=== PATIENT | female | born 1930 | race Caucasian/White ===

== ENCOUNTER 2017-04-01 12:24 | Emergency (ER) | payer MEDICARE ==
[~2017-04-01] VITALS: Ht 147.3 cm; Wt 86.0 kg
[~2017-04-01 12:24] MED LIST: ATOR40TA16 PO; CARV25TA PO; DULC10SU3 RECTAL; FURO20TA PO; KEPP750T PO; LISI2.5T3 PO; MILKSUS PO; MIRA33504 PO; NOVO7030P2 SQ; RANI150T PO; RISP.25 PO; TYLE325T PO; VENTAER INH; cpap
[2017-04-01 12:36] VITALS: BP 124/58; PULSE 72; RESP 19; TEMP 97.5; O2SAT 100
[2017-04-01 12:43] VITALS: BP 124/58; PULSE 71; RESP 17; TEMP 97.5; O2SAT 98
[2017-04-01 12:52] VITALS: BP 124/58; PULSE 70; RESP 17; TEMP 97.5; O2SAT 95
[2017-04-01] MEDS ORDERED: ACETAMINOPHEN 325 MG TAB PO ONE (13:00)
--- NOTE | 2017-04-01 13:06 | PD ---
HPI Chief Complaint: Fall Time Seen by Provider: 12:48 Travel History International Travel<30 days: No Contact w/Intl Traveler<30days: No Traveled to known affect area: No History of Present Illness HPI 86-year-old female that presents to the ED for evaluation of fall. Patient lives an assisted-living facility. Patient apparently had a fall well being transferred from a wheelchair to a bed. This was witnessed by staff. Staff was actually helping her get into the bed and this time was able to get her on the floor safely without major injuries per staff. Patient was brought here for evaluation as she is complaining of pain and has policy of the PRISON. Patient states that she has pain all over but she cannot really tell me were specifically. Per ambulance report she is appear to have pain of her left hip. 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 She has a history of dementia as well. She is for the most part wheelchair bound and lives in an PRISON because of this conditions. She does not appear to be in minimal distress. She tells me that her pain is 10 out of 10. She cannot really tell me she has any chest pain or shortness of breath or any abdominal pain. Whenever I examine her back and legs she does not appear to be in any pain. PFSH Past Medical History Atrial Fibrillation: Yes Cardiovascular Problems: Yes High Cholesterol: Yes Congestive Heart Failure: Yes Cerebrovascular Accident: Yes Diabetes: Yes Patient Takes Glucophage: No GERD: Yes Hypertension: Yes Neurologic: Yes (dementia) Seizures: Yes Tetanus Vaccination: Unknown Past Surgical History Surgical History: Unable to Obtain Social History Alcohol Use: No Tobacco Use: No Substance Use: No Allergies-Medications (Allergen,Severity, Reaction): Coded Allergies: erythromycin base (Unverified Allergy, Intermediate, hives, 04/01/17) metformin (Unverified Allergy, Intermediate, hives, 04/01/17) shellfish derived (Unverified Allergy, Intermediate, unknown, 04/01/17) diflunisal (Unverified Adverse Reaction, Intermediate, spacy, 04/01/17) doxycycline (Unverified Adverse Reaction, Intermediate, nausea/vomiting, ) ketorolac (Unverified Adverse Reaction, Intermediate, hallucinations, 04/01) meperidine (Unverified Adverse Reaction, Intermediate, itching, 04/01/17) pioglitazone (Unverified Adverse Reaction, Intermediate, chest pain, ) rosiglitazone (Unverified Adverse Reaction, Intermediate, edema, 04/01/17) sitagliptin (Unverified Adverse Reaction, Unknown, unknown, 04/01/17) Reported Meds & Prescriptions Reported Meds & Active Scripts Active Keflex (Cephalexin) 500 Mg Cap 500 Mg PO Q12H [cpap] Reported Ibuprofen 800 Mg Tab 800 Mg PO Q6HR PRN Miralax Powder (Polyethylene Glycol 3350 Powder) 17 Gm Powd 17 Gm PO DAILY Mix and dissolve one measuring cap-ful (17 grams) in water or juice. Pepto-Bismol (Bismuth Subsalicylate) 262 Mg Chew 524 Mg CHEW TID PRN Ranitidine (Ranitidine HCl) 150 Mg Tab 150 Mg PO BID Ventolin Hfa 18 GM Inh (Albuterol Sulfate) 90 Mcg/Act Aer 2 Puff INH Q4H PRN Lisinopril 2.5 Mg Tab 2.5 Mg PO DAILY Keppra (Levetiracetam) 750 Mg Tab 750 Mg PO BID Furosemide 20 Mg Tab 20 Mg PO DAILY Dulcolax Supp (Bisacodyl) 10 Mg Supp 10 Mg RECTAL DAILY PRN Carvedilol 25 Mg Tab 25 Mg PO BID Atorvastatin (Atorvastatin Calcium) 40 Mg Tab 40 Mg PO HS Tylenol (Acetaminophen) 325 Mg Tab 650 Mg PO Q4H PRN Milk of Magnesia Liq (Magnesium Hydroxide) 400 Mg/5 Ml Susp 30 Ml PO DAILY PRN Risperdal (Risperidone) 0.25 Mg Tab 0.25 Mg PO HS Novolin 70-30 Inj (Insulin Human Isoph/Insulin Regular) 1,000 Unit/10 Ml Vial 35 Units SQ HS Novolin 70-30 Inj (Insulin Human Isoph/Insulin Regular) 1,000 Unit/10 Ml Vial 45 Units SQ AM Review of Systems Except as stated in HPI: all other systems reviewed are Neg Physical Exam Narrative GENERAL: SKIN: Warm and dry. HEAD: Atraumatic. Normocephalic. EYES: Pupils equal and round 4 mm reactive to light and accommodation. No scleral icterus. No injection or drainage. ENT: No nasal bleeding or discharge. Mucous membranes pink and moist. Tongue is midline. No uvula deviation. NECK: Trachea midline. No JVD. CARDIOVASCULAR: Regular rate and rhythm. No murmurs, S3, S4. RESPIRATORY: No accessory muscle use. Clear to auscultation. Breath sounds equal bilaterally. GASTROINTESTINAL: Abdomen soft, non-tender, nondistended. Hepatic and splenic margins not palpable. MUSCULOSKELETAL: Extremities without clubbing, cyanosis, or edema. No obvious deformities. Full range of motion of the upper and lower extremities with exception of the left upper and lower extremities secondary to chronic deficits. 2+ pulses bilaterally. No lumbar, thoracic, cervical spine tenderness to palpation. NEUROLOGICAL: Awake and alert. No obvious cranial nerve deficits. Motor grossly within normal limits. Five out of 5 muscle strength in the arms and legs. Normal speech. PSYCHIATRIC: Appropriate mood and affect; insight and judgment normal. Data Data Last Documented VS Vital Signs Date Time Temp Pulse Resp B/P (MAP) Pulse Ox O2 Delivery O2 Flow Rate FiO2 04/01/17 12:52 97.5 70 17 124/58 (80) 95 Nasal Cannula 2.00 Orders Orders Complete Blood Count With Diff (04/01/17 12:48) Basic Metabolic Panel (Bmp) (04/01/17 12:48) Urinalysis - C+S If Indicated (04/01/17 12:48) Chest, Single Ap (04/01/17 12:48) Ct Brain W/O Iv Contrast(Rout) (04/01/17 12:48) Ecg Monitoring (04/01/17 12:48) Oximetry (04/01/17 12:48) Hip, Uni(Ap&Lat) W Ap Pelvis (04/01/17 ) Acetaminophen (Tylenol) (04/01/17 13:00) Hip, Uni(Ap&Lat) Wo Ap Pelvis (04/01/17 ) Urine Culture (04/01/17 14:28) Ceftriaxone Inj (Rocephin Inj) (04/01/17 15:15) Labs Laboratory Tests Test 04/01/17 13:00 04/01/17 14:28 White Blood Count 10.7 TH/MM3 Red Blood Count 4.47 MIL/MM3 Hemoglobin 12.7 GM/DL Hematocrit 39.2 % Mean Corpuscular Volume 87.6 FL Mean Corpuscular Hemoglobin 28.4 PG Mean Corpuscular Hemoglobin Concent 32.5 % Red Cell Distribution Width 13.4 % Platelet Count 212 TH/MM3 Mean Platelet Volume 8.5 FL Neutrophils (%) (Auto) 71.1 % Lymphocytes (%) (Auto) 19.1 % Monocytes (%) (Auto) 7.1 % Eosinophils (%) (Auto) 2.3 % Basophils (%) (Auto) 0.4 % Neutrophils # (Auto) 7.6 TH/MM3 Lymphocytes # (Auto) 2.1 TH/MM3 Monocytes # (Auto) 0.8 TH/MM3 Eosinophils # (Auto) 0.2 TH/MM3 Basophils # (Auto) 0.0 TH/MM3 CBC Comment DIFF FINAL Differential Comment Blood Urea Nitrogen 19 MG/DL Creatinine 0.98 MG/DL Random Glucose 252 MG/DL Calcium Level 8.5 MG/DL Sodium Level 144 MEQ/L Potassium Level 4.1 MEQ/L Chloride Level 109 MEQ/L Carbon Dioxide Level 26.8 MEQ/L Anion Gap 8 MEQ/L Estimat Glomerular Filtration Rate 54 ML/MIN Urine Color LIGHT-YELLOW Urine Turbidity HAZY Urine pH 5.5 Urine Specific [place] 1.013 Urine Protein NEG mg/dL Urine Glucose (UA) NEG mg/dL Urine Ketones NEG mg/dL Urine Occult Blood MOD Urine Nitrite NEG Urine Bilirubin NEG Urine Urobilinogen LESS THAN 2.0 MG/DL Urine Leukocyte Esterase LARGE Urine RBC 42 /hpf Urine WBC 81 /hpf Urine WBC Clumps RARE Urine Amorphous Sediment RARE Urine Bacteria RARE /hpf Urine Mucus FEW /lpf Microscopic Urinalysis Comment CULTURE INDICATED MDM Medical Decision Making Medical Screen Exam Complete: Yes Emergency Medical Condition: Yes Medical Record Reviewed: Yes Interpretation(s) CBC & BMP Diagram 04/01/17 13:00 Calcium Level 8.5 UA shows UTI Last Impressions Head CT 04/01/17 1248 Signed Impressions: Service Date/Time: Saturday, April 01, 2017 13:15 - CONCLUSION: 1. No acute intracranial abnormality. 2. Areas of encephalomalacia on the right suggesting prior infarction or trauma. 3. Atrophy and chronic small vessel ischemic change. Sam Hernandez Jr., MD Chest X-Ray 04/01/17 1248 Signed Impressions: Service Date/Time: Saturday, April 01, 2017 13:41 - CONCLUSION: 1. Cardiomegaly. Clear lungs. Sam Hernandez Jr., MD Hip X-Ray 04/01/17 0000 Signed Impressions: Service Date/Time: Saturday, April 01, 2017 13:41 - CONCLUSION: Negative for fracture or dislocation. Follow up in 7-10 days is suggested if symptoms persist. Jacob Sung MD FACR X-ray of the right and left hip were essentially unremarkable. Differential Diagnosis Fall versus pain versus mechanical fall versus head injury versus normal exam Narrative Course 86-year-old female that presents to the ED for further evaluation of fall. Patient had a mechanical fall while being transported from the wheelchair into the bed. Patient did not have a hard fall and she was actually helped by staff into the floor with no major injuries. Patient was sent here for evaluation. Patient is somewhat of a poor historian secondary to her dementia and CVA. She has chronic left-sided numbness and weakness. Patient complaining of pain but she cannot really tell us were specifically. She does not appear to be in acute distress. I did evaluate her and even with movement of the legs and arm she has no pain. No obvious spinal tenderness to palpation. No obvious versus or contusions noted. Labs and imaging were ordered. Labs and imaging were essentially unremarkable. Patient does have a UTI. This is likely contusions. Recommendations for Tylenol Motrin for pain. Close follow-up with PCP. Patient was given a prescription for Keflex for her UTI and given ceftriaxone here for the urinary tract infection. Close follow with PCP. See ED worsening symptoms. Diagnosis Primary Impression: Fall Qualified Codes: W19.XXXA - Unspecified fall, initial encounter Additional Impression: UTI (urinary tract infection) Qualified Codes: N30.00 - Acute cystitis without hematuria Patient Instructions: General Instructions Additional Instructions: Take medication as prescribed. Motrin or Tylenol for pain. Follow with PCP. See ED for any worsening symptoms. Med/Other Pt SpecificInfo: Prescription(s) given Scripts Cephalexin (Keflex) 500 Mg Cap 500 MG PO Q12H for Infection, #10 CAP 0 Refills Prov: Bharathi Arellano MD 04/01/17 Disposition: 03 DISCHARGE TO SNF Condition: Stable Lorne Zhu Apr 01, 2017 13:06
[2017-04-01 13:22] LABS: AUTOMATED NEUTROPHIL # 7.6 TH/MM3 (1.8-7.7); BASOPHIL % 0.4 % (0.0-2.0); EOSINOPHIL # 0.2 TH/MM3 (0-0.4); EOSINOPHIL % 2.3 % (0.0-4.0); HEMATOCRIT 39.2 % (35.0-46.0); HEMO FLAGS DIFF FINAL; LYMPH % 19.1 % (9.0-44.0); LYMPHOCYTE # 2.1 TH/MM3 (1.0-4.8); MEAN CELL VOLUME 87.6 FL (80.0-100.0); MEAN CORPUSCULAR HEMOGLOBIN 28.4 PG (27.0-34.0); MEAN CORPUSCULAR HGB CONC 32.5 % (32.0-36.0); MONO % 7.1 % (0.0-8.0); NEUT % 71.1 % (16.0-70.0); PLATELET COUNT 212 TH/MM3 (150-450); RED BLOOD COUNT 4.47 MIL/MM3 (4.00-5.30); RED CELL DISTRIBUTION WIDTH 13.4 % (11.6-17.2); WHITE BLOOD COUNT 10.7 TH/MM3 (4.0-11.0)
[2017-04-01] MEDS ORDERED: MIRA3350 PO (13:28)
[2017-04-01] MEDS ORDERED: PEPT262C2 CHEW (13:28)
[2017-04-01] MEDS ORDERED: IBUP800T23 PO (13:28)
--- NOTE | 2017-04-01 13:32 | RADRPT ---
EXAM DATE/TIME: 04/01/2017 13:15 [facility] COMPARISON: No previous studies available for comparison. INDICATIONS : Trauma, fall today. RADIATION DOSE: 56.35 CTDIvol (mGy) MEDICAL HISTORY : Stroke. Seizures. Hypertension. SURGICAL HISTORY : None. ENCOUNTER: Initial ACUITY: 1 day PAIN SCALE: 5/10 LOCATION: Bilateral head TECHNIQUE: Multiple contiguous axial images were obtained of the head. Using automated exposure control and adj ustment of the mA and/or kV according to patient size, radiation dose was kept as low as reasonably a chievable to obtain optimal diagnostic quality images. DICOM format image data is available electro nically for review and comparison. FINDINGS: Areas of encephalomalacia seen involving the right parietal lobe near the vertex as well as the right frontal lobe. Periventricular low attenuation change involving both cerebral hemispheres. Atrophy. S mall chronic lacunar infarctions involving the thalami bilaterally. Calvarium is intact. CONCLUSION: 1. No acute intracranial abnormality. 2. Areas of encephalomalacia on the right suggesting prior infarction or trauma. 3. Atrophy and chronic small vessel ischemic change. Sam Hernandez Jr., MD on April 01, 2017 at 13:28 Board Certified Radiologist. This report was verified electronically.
[2017-04-01 13:40] LABS: BICARBONATE 26.8 MEQ/L (21.0-32.0); POTASSIUM 4.1 MEQ/L (3.5-5.1)
--- NOTE | 2017-04-01 14:47 | RADRPT ---
EXAM DATE/TIME: 04/01/2017 13:41 [facility] COMPARISON: No previous studies available for comparison. INDICATIONS : Fall last night. MEDICAL HISTORY : Stroke. Seizures. Hypertension. SURGICAL HISTORY : None. ENCOUNTER: Initial ACUITY: 1 day PAIN SCORE: 0/10 LOCATION: Bilateral chest FINDINGS: A single view of the chest demonstrates the lungs to be symmetrically aerated without evidence of mas s, infiltrate or effusion. Cardiomegaly. No pulmonary vascular engorgement. Osseous structures are in tact. CONCLUSION: 1. Cardiomegaly. Clear lungs. Sam Hernandez Jr., MD on April 01, 2017 at 14:45 Board Certified Radiologist. This report was verified electronically.
[2017-04-01 15:00] LABS: BACTERIA, URINE RARE /hpf; BLOOD, URINE MOD (NEG); COMMENT (UR) CULTURE INDICATED; CULTURE IF INDICATED CULTURE INDICATED; GLUCOSE,URINE NEG (NEG); KETONE, URINE NEG (NEG); MUCUS URINE FEW /lpf (OCC); NITRITE,URINE NEG (NEG); PH, URINE 5.5 (5.0-8.5); URINE COLOR LIGHT-YELLOW (YELLW/STRAW)
[2017-04-01] MEDS ORDERED: CEPH-460 PO (15:06)
--- NOTE | 2017-04-01 15:06 | RADRPT ---
EXAM DATE/TIME: 04/01/2017 13:41 [facility] COMPARISON: No previous studies available for comparison. INDICATIONS : Fall last night. MEDICAL HISTORY : None. Stroke. Seizures. Hypertension. SURGICAL HISTORY : None. ENCOUNTER: Initial ACUITY: 1 day PAIN SCORE: 0/10 LOCATION: Right Hip FINDINGS: A two view examination of the right hip was performed. The primary and secondary trabecular pattern of the femoral neck is intact. The hip joint is of normal width without significant sclerosis or bon y hypertrophy. The acetabulum is grossly intact. CONCLUSION: Negative for fracture or dislocation. Follow up in 7-10 days is suggested if symptoms persist. Jacob Sung MD FACR on April 01, 2017 at 14:57 Board Certified Radiologist. This report was verified electronically.
--- NOTE | 2017-04-01 15:07 | RADRPT ---
EXAM DATE/TIME: 04/01/2017 13:41 [facility] COMPARISON: No previous studies available for comparison. INDICATIONS : Fall last night. MEDICAL HISTORY : Stroke. Seizures. Hypertension. SURGICAL HISTORY : None. ENCOUNTER: Initial ACUITY: 1 day PAIN SCORE: 0/10 LOCATION: Left Hip. FINDINGS: Examination of the left hip was performed with AP Pelvis. The primary and secondary trabecular patte rn of the femoral neck is intact. The hip joint is of normal width without significant sclerosis or bony hypertrophy. The acetabulum is grossly intact. CONCLUSION: Negative for fracture or dislocation. Follow up in 7-10 days is suggested if symptoms persist. Jacob Sung MD FACR on April 01, 2017 at 15:05 Board Certified Radiologist. This report was verified electronically.
[2017-04-01] MEDS ORDERED: cefTRIAXone INJ 1,000 MG in SODIUM CHLORIDE 0.9% INJ 100 ML IV ONE (15:15)
[2017-04-01 18:10] VITALS: BP 129/60
[2017-05-16] MEDS ORDERED: NOVONP2 SQ (08:56)
[2017-05-16] MEDS ORDERED: LANTUS2P SQ (08:56)
[2017-05-20] MEDS ORDERED: NOVOLOGP2 SQ (15:45)
== END 2017-04-01 18:28 ==
LOC: NEPC 12:24
DX: N30.00 Acute cystitis without hematuria (principal); B96.4 Proteus (mirabilis) (morganii) as the cause of diseases classified elsewhere; E11.9 Type 2 diabetes mellitus without complications; I10 Essential (primary) hypertension; F03.90 Unspecified dementia, unspecified severity, without behavioral disturbance, psychotic disturbance, mood disturbance, and anxiety; E78.00 Pure hypercholesterolemia, unspecified; W19.XXXA Unspecified fall, initial encounter; Z99.3 Dependence on wheelchair; Z79.4 Long term (current) use of insulin; Z86.79 Personal history of other diseases of the circulatory system; Z87.19 Personal history of other diseases of the digestive system; Z86.69 Personal history of other diseases of the nervous system and sense organs
CPT/HCPCS: 70450; 71010; 73502; 80048; 81001; 85025; 87077; 87086; 87186; 96365; 99285; J0696

== ENCOUNTER 2017-08-13 15:06 | Inpatient (IN) | payer MEDICARE ==
[~2017-08-13] VITALS: Ht 152.4 cm; Wt 76.9 kg
[2017-08-13] VITALS (8 sets, daily range): BP systolic 91–124; BP diastolic 49–68; PULSE 72–82; RESP 17–23; TEMP 97.7; O2SAT 94–100
[~2017-08-13 15:06] MED LIST changes: +IBUP1TAB7 PO; +LANTUS2P SQ; +MIRA3350 PO; -MIRA33504 PO; -NOVO7030P2 SQ; +NOVOLOGP2 SQ; +PEPT262C2 CHEW; -RISP.25 PO
[2017-08-13] MEDS ORDERED: ACETAMINOPHEN 650 MG SUPP RECTAL ONE (15:15)
[2017-08-13] MEDS ORDERED: SODIUM CHLORID 0.9% 500 ML INJ 500 ML IV ONE ×2 (15:30→16:15)
[2017-08-13] MEDS ORDERED: VANCOMYCIN INJ 1,000 MG in SODIUM CHLOR 0.9% 250 ML INJ 250 ML IV STA (15:30)
[2017-08-13] MEDS ORDERED: PIPERACIL-TAZO 4.5 GM PREMIX 100 ML IV STA (15:30)
--- NOTE | 2017-08-13 15:37 | PD ---
HPI Chief Complaint: Altered Mental Status Time Seen by Provider: 15:13 Travel History International Travel<30 days: No Contact w/Intl Traveler<30days: No Traveled to known affect area: No History of Present Illness HPI 86-year-old female presents by ambulance for initial nonemergent call for abnormal sodium in the 160s. When the ambulance team arrived on scene she had a fever of 101 and a GCS of 5. Here patient withdraws to pain, mumbles with pain, opens eyes with voice. History is limited from patient as she cannot have any clear speech with me at this time. Records state she has history of dementia. History is significantly limited. PFS Past Medical History Narrative Medical By records Atrial Fibrillation: Yes Cardiovascular Problems: Yes High Cholesterol: Yes Congestive Heart Failure: Yes Cerebrovascular Accident: Yes Diabetes: Yes Patient Takes Glucophage: No (UNKNOWN) GERD: Yes Hypertension: Yes Neurologic: Yes (dementia) Seizures: Yes Past Surgical History Surgical History: Unable to Obtain Social History Narrative Social History By records Alcohol Use: No Tobacco Use: No Substance Use: No Allergies-Medications (Allergen,Severity, Reaction): Coded Allergies: erythromycin base (Unverified Allergy, Intermediate, hives, 04/01/17) metformin (Unverified Allergy, Intermediate, hives, 04/01/17) shellfish derived (Unverified Allergy, Intermediate, unknown, 04/01/17) diflunisal (Unverified Adverse Reaction, Intermediate, spacy, 04/01/17) doxycycline (Unverified Adverse Reaction, Intermediate, nausea/vomiting, ) ketorolac (Unverified Adverse Reaction, Intermediate, hallucinations, 04/01) meperidine (Unverified Adverse Reaction, Intermediate, itching, 04/01/17) pioglitazone (Unverified Adverse Reaction, Intermediate, chest pain, ) rosiglitazone (Unverified Adverse Reaction, Intermediate, edema, 04/01/17) sitagliptin (Unverified Adverse Reaction, Unknown, unknown, 04/01/17) Reported Meds & Prescriptions Reported Meds & Active Scripts Active Lantus Inj (Insulin Glargine) 1,000 Unit/10 Ml Vial 30 Units SQ HS Novolog Inj (Insulin Aspart) 1,000 Unit/10 Ml Vial 0 SQ DIRECTED BGM 70-139 0 units, 140-180 2 untis, 181-240 3 units, 241-300 4mg, 301-350 6 units, 351-400 8 units, >400 10 units [cpap] Reported Ibuprofen 800 Mg Tab 800 Mg PO Q6HR PRN Miralax Powder (Polyethylene Glycol 3350 Powder) 17 Gm Powd 17 Gm PO DAILY Mix and dissolve one measuring cap-ful (17 grams) in water or juice. Pepto-Bismol (Bismuth Subsalicylate) 262 Mg Chew 524 Mg CHEW TID PRN Ranitidine (Ranitidine HCl) 150 Mg Tab 150 Mg PO BID Ventolin Hfa 18 GM Inh (Albuterol Sulfate) 90 Mcg/Act Aer 2 Puff INH Q4H PRN Lisinopril 2.5 Mg Tab 2.5 Mg PO DAILY Keppra (Levetiracetam) 750 Mg Tab 750 Mg PO BID Furosemide 20 Mg Tab 20 Mg PO DAILY Dulcolax Supp (Bisacodyl) 10 Mg Supp 10 Mg RECTAL DAILY PRN Carvedilol 25 Mg Tab 25 Mg PO BID Atorvastatin (Atorvastatin Calcium) 40 Mg Tab 40 Mg PO HS Tylenol (Acetaminophen) 325 Mg Tab 650 Mg PO Q4H PRN Milk of Magnesia Liq (Magnesium Hydroxide) 400 Mg/5 Ml Susp 30 Ml PO DAILY PRN Review of Systems ROS Limitations: Altered Mental Status Physical Exam Exam Limitations: Altered Mental Status Narrative GENERAL: Well-nourished, well-developed patient. SKIN: Warm and dry. HEAD: Normocephalic and atraumatic. EYES: No injection or drainage. ENT: No nasal drainage noted. NECK: Supple, trachea midline. CARDIOVASCULAR: Regular rate and rhythm RESPIRATORY: no increased effort. No accessory muscle use. GASTROINTESTINAL: Abdomen soft, non-tender, nondistended. NEUROLOGICAL: withdraws to pain, mumbles with pain, opens eyes to voice Data Data Last Documented VS Vital Signs Date Time Temp Pulse Resp B/P (MAP) Pulse Ox O2 Delivery O2 Flow Rate FiO2 08/13/17 15:37 100 3.00 08/13/17 15:37 Nasal Cannula 08/13/17 15:05 21 Orders Orders Sepsis Workup Initiated (08/13/17 ) Electrocardiogram (08/13/17 15:13) Complete Blood Count With Diff (08/13/17 15:13) Comprehensive Metabolic Panel (08/13/17 15:13) Prothrombin Time / Inr (Pt) (08/13/17 15:13) Act Partial Throm Time (Ptt) (08/13/17 15:13) Lactic Acid Sepsis Protocol (08/13/17 15:13) Magnesium (Mg) (08/13/17 15:13) Phosphorus (Po4) (08/13/17 15:13) Ckmb (Isoenzyme) Profile (08/13/17 15:13) Troponin I (08/13/17 15:13) Urinalysis - C+S If Indicated (08/13/17 15:13) Influenzae A/B Antigen (08/13/17 15:13) Blood Culture (08/13/17 15:13) Chest, Single Ap (08/13/17 15:13) Blood Glucose (08/13/17 15:13) Ecg Monitoring (08/13/17 15:13) Iv Access Insert/Monitor (08/13/17 15:13) Oximetry (08/13/17 15:13) Oxygen Administration (08/13/17 15:13) Acetaminophen Supp (Tylenol Supp) (08/13/17 15:15) Sodium Chlorid 0.9% 500 Ml Inj (Ns 500 M (08/13/17 15:30) Ct Brain W/O Iv Contrast(Rout) (08/13/17 ) Vancomycin Inj (Vancomycin Inj) (08/13/17 15:30) Piperacil-Tazo 4.5 Gm Premix (Zosyn 4.5 (08/13/17 15:30) Sodium Chlorid 0.9% 500 Ml Inj (Ns 500 M (08/13/17 16:15) Urinary Catheter Insert/Apply (08/13/17 16:23) CKMB (08/13/17 15:00) CKMB% (08/13/17 15:00) Admit Order (Ed Use Only) (08/13/17 16:54) Labs Laboratory Tests Test 08/13/17 15:00 08/13/17 15:22 08/13/17 16:16 White Blood Count 16.8 TH/MM3 Red Blood Count 4.36 MIL/MM3 Hemoglobin 12.4 GM/DL Hematocrit 39.3 % Mean Corpuscular Volume 90.3 FL Mean Corpuscular Hemoglobin 28.5 PG Mean Corpuscular Hemoglobin Concent 31.5 % Red Cell Distribution Width 14.2 % Platelet Count 261 TH/MM3 Mean Platelet Volume 9.1 FL Neutrophils (%) (Auto) 82.0 % Lymphocytes (%) (Auto) 10.1 % Monocytes (%) (Auto) 7.2 % Eosinophils (%) (Auto) 0.1 % Basophils (%) (Auto) 0.6 % Neutrophils # (Auto) 13.8 TH/MM3 Lymphocytes # (Auto) 1.7 TH/MM3 Monocytes # (Auto) 1.2 TH/MM3 Eosinophils # (Auto) 0.0 TH/MM3 Basophils # (Auto) 0.1 TH/MM3 CBC Comment DIFF FINAL Differential Comment Prothrombin Time 11.4 SEC Prothromb Time International Ratio 1.1 RATIO Activated Partial Thromboplast Time 24.4 SEC Blood Urea Nitrogen 44 MG/DL Creatinine 1.47 MG/DL Random Glucose 354 MG/DL Total Protein 7.0 GM/DL Albumin 2.3 GM/DL Calcium Level 8.1 MG/DL Phosphorus Level 2.9 MG/DL Magnesium Level 2.4 MG/DL Alkaline Phosphatase 99 U/L Aspartate Amino Transf (AST/SGOT) 36 U/L Alanine Aminotransferase (ALT/SGPT) 20 U/L Total Bilirubin 0.4 MG/DL Sodium Level 159 MEQ/L Potassium Level 5.1 MEQ/L Chloride Level 125 MEQ/L Carbon Dioxide Level 26.1 MEQ/L Anion Gap 8 MEQ/L Estimat Glomerular Filtration Rate 34 ML/MIN Total Creatine Kinase 131 U/L Creatine Kinase MB LESS THAN 0.5 NG/ML Troponin I LESS THAN 0.02 NG/ML Lactic Acid Level 2.5 mmol/L Urine Color YELLOW Urine Turbidity HAZY Urine pH 5.0 Urine Specific [place] 1.013 Urine Protein TRACE mg/dL Urine Glucose (UA) 150 mg/dL Urine Ketones NEG mg/dL Urine Occult Blood SMALL Urine Nitrite POS Urine Bilirubin NEG Urine Urobilinogen LESS THAN 2.0 MG/DL Urine Leukocyte Esterase LARGE Urine RBC 9 /hpf Urine WBC /hpf Urine WBC Clumps MANY Urine Squamous Epithelial Cells 1 /hpf Urine Bacteria MOD /hpf Urine Hyaline Casts 17 /lpf Urine Mucus FEW /lpf Microscopic Urinalysis Comment CATH-CULTURE IND MDM Medical Decision Making Medical Screen Exam Complete: Yes Emergency Medical Condition: Yes Medical Record Reviewed: Yes (pmh confirmed) Interpretation(s) CBC & BMP Diagram 08/13/17 15:00 Total Protein 7.0, Albumin 2.3 L, Calcium Level 8.1 L, Phosphorus Level 2.9, Magnesium Level 2.4, Alkaline Phosphatase 99, Aspartate Amino Transf (AST/SGOT) 36, Alanine Aminotransferase (ALT/SGPT) 20, Total Bilirubin 0.4 Last 24 hours Impressions Chest X-Ray 08/13/17 1513 Signed Impressions: Service Date/Time: Sunday, August 13, 2017 15:24 - CONCLUSION: No acute disease. There is no evidence of pneumonia. Elio Bauman MD Head CT 08/13/17 0000 Signed Impressions: Service Date/Time: Sunday, August 13, 2017 15:36 - CONCLUSION: 1. No acute hemorrhage or mass effect. 2. Encephalomalacia involving the right frontal and parietal lobes. 3. Moderate atrophy and chronic small vessel ischemic changes. Elio Bauman MD Differential Diagnosis UTI, sepsis, intercranial, renal failure, electrolyte abnormality Narrative Course Will check blood work, urinalysis, chest x-ray, CT brain and discuss with power of staff attorney patient's clinical condition. Will dose with IV fluids, Tylenol and broad-spectrum antibiotics Patient's power of staff attorney Elena baer ([phone]) states patient is a full code. He states he wants to review her paperwork but at this time if she' s not having issues with her breathing he agrees to no intubation and aggressive treatment of fever and broad-spectrum antibiotics. Follow along with her care and be available over the phone as needed. son called and states for now only intubate if respiratory failure and will look over paperwork 1700 elena baer called back and states found records she had that state that she does not want to be intubated but otherwise do other parts with cpr, meds, and shock if codes, son updated again and agrees to admit Critical Care Narrative Aggregate critical care time was 90 minutes. Time to perform other separately billable procedures was not included in the critical care time. My time did not include minutes spent treating any other patients simultaneously or on activities that did not directly contribute to the patient's treatment. The services I provided to this patient were to treat and/or prevent clinically significant deterioration that could result in: shock, respiratory failure, I provided critical care services requiring my management, as noted below: Chart data review, documentation time, medication orders and management, vital sign assessments/reviewing monitor data, ordering and reviewing lab tests, ordering and interpreting/reviewing x-rays and diagnostic studies, care of the patient and discussion of the patient with the admitting physicians. Sepsis Criteria SIRS Criteria (2 or more): Temp > 100.9 or < 96.8 (ems 101.1q), WBC > 77541, < 4000 or > 10% bands Sepsis Criteria (SIRS+source): Infect source susp/known Severe Sepsis (+one): Lactate >2 Criteria Outcome: Meets severe sepsis criteria Physician Communication Physician Communication dr coreas agrees to admit Diagnosis Primary Impression: Sepsis Qualified Codes: A41.9 - Sepsis, unspecified organism Additional Impressions: Hypernatremia Renal failure Qualified Codes: N17.9 - Acute kidney failure, unspecified Altered mental status Qualified Codes: R41.82 - Altered mental status, unspecified Admitting Information Admitting Physician Requests: Admit Ashli Pedraza MD Aug 13, 2017 15:37
--- NOTE | 2017-08-13 15:38 | RADRPT ---
EXAM DATE/TIME: 08/13/2017 15:24 [facility] COMPARISON: CHEST SINGLE AP, April 01, 2017, 13:41. INDICATIONS : Fever. MEDICAL HISTORY : Dementia and diabetes. Stroke. Seizures. Hypertension SURGICAL HISTORY : None. ENCOUNTER: Initial ACUITY: 1 day PAIN SCORE: Non-responsive. LOCATION: Bilateral chest FINDINGS: A single view of the chest demonstrates the lungs to be symmetrically aerated without evidence of mas s, infiltrate or effusion. The cardiomediastinal contours are unremarkable. Osseous structures are intact. CONCLUSION: No acute disease. There is no evidence of pneumonia. Elio Bauman MD on August 13, 2017 at 15:34 Board Certified Radiologist. This report was verified electronically.
[2017-08-13 15:43] LABS: AUTOMATED NEUTROPHIL # 13.8 TH/MM3 (1.8-7.7); BASOPHIL # 0.1 TH/MM3 (0-0.2); BASOPHIL % 0.6 % (0.0-2.0); EOSINOPHIL % 0.1 % (0.0-4.0); HEMATOCRIT 39.3 % (35.0-46.0); HEMOGLOBIN 12.4 GM/DL (11.6-15.3); LYMPH % 10.1 % (9.0-44.0); LYMPHOCYTE # 1.7 TH/MM3 (1.0-4.8); MEAN CELL VOLUME 90.3 FL (80.0-100.0); MEAN CORPUSCULAR HEMOGLOBIN 28.5 PG (27.0-34.0); MEAN CORPUSCULAR HGB CONC 31.5 % (32.0-36.0); MEAN PLATELET VOLUME 9.1 FL (7.0-11.0); MONO % 7.2 % (0.0-8.0); MONOCYTE # 1.2 TH/MM3 (0-0.9); PLATELET COUNT 261 TH/MM3 (150-450); RED BLOOD COUNT 4.36 MIL/MM3 (4.00-5.30); RED CELL DISTRIBUTION WIDTH 14.2 % (11.6-17.2); WHITE BLOOD COUNT 16.8 TH/MM3 (4.0-11.0)
[2017-08-13 15:58] LABS: INTERNATIONAL NORMALIZED RATIO 1.1 RATIO; PROTHROMBIN TIME - PATIENT 11.4 SEC (9.8-11.6)
--- NOTE | 2017-08-13 16:00 | RADRPT ---
EXAM DATE/TIME: 08/13/2017 15:36 [facility] COMPARISON: CT BRAIN W/O CONTRAST, April 01, 2017, 13:15. INDICATIONS : Altered mental status, declining over past week RADIATION DOSE: 56.35 CTDIvol (mGy) MEDICAL HISTORY : Dementia. Hypertension. Cerebrovascular disease. SURGICAL HISTORY : None. ENCOUNTER: Initial ACUITY: 1 week PAIN SCALE: Non-responsive LOCATION: cranial TECHNIQUE: Multiple contiguous axial images were obtained of the head. Using automated exposure control and adj ustment of the mA and/or kV according to patient size, radiation dose was kept as low as reasonably a chievable to obtain optimal diagnostic quality images. DICOM format image data is available electro nically for review and comparison. FINDINGS: CEREBRUM: The ventricles are normal for age diffuse moderate atrophic change. There is sulcal and ventricular p rominence. Encephalomalacia is noted involving the right frontal and occipital white matter. The No e vidence of midline shift, mass lesion, hemorrhage or acute infarction. No extra-axial fluid collecti ons are seen. POSTERIOR FOSSA: The cerebellum and brainstem are intact. The 4th ventricle is midline. The cerebellopontine angle i s unremarkable. EXTRACRANIAL: The visualized portion of the orbits is intact. SKULL: The calvaria is intact. No evidence of skull fracture. CONCLUSION: 1. No acute hemorrhage or mass effect. 2. Encephalomalacia involving the right frontal and parietal lobes. 3. Moderate atrophy and chronic small vessel ischemic changes. Elio Bauman MD on August 13, 2017 at 15:49 Board Certified Radiologist. This report was verified electronically.
[2017-08-13 16:02] LABS: LACTIC ACID SEPSIS PROTOCOL 2.5 mmol/L (0.4-2.0)
[2017-08-13 16:26] LABS: ALBUMIN 2.3 GM/DL (3.4-5.0); ALKALINE PHOSPHATASE 99 U/L (45-117); ALT (GPT) 20 U/L (10-53); AST (GOT) 36 U/L (15-37); BICARBONATE 26.1 MEQ/L (21.0-32.0); BLOOD UREA NITROGEN 44 MG/DL (7-18); CALCIUM 8.1 MG/DL (8.5-10.1); CHLORIDE 125 MEQ/L (98-107); CREATININE 1.47 MG/DL (0.50-1.00); GLOMERULAR FILTRATION RATE 34 ML/MIN (>89); GLUCOSE,RANDOM 354 MG/DL (74-106); MAGNESIUM 2.4 MG/DL (1.5-2.5); PHOSPHORUS 2.9 MG/DL (2.5-4.9); TOTAL BILIRUBIN ADULT 0.4 MG/DL (0.2-1.0); TROPONIN I LESS THAN 0.02 NG/ML (0.02-0.05)
[2017-08-13 16:31] LABS: SODIUM (NA) 159 MEQ/L (136-145)
[2017-08-13] MEDS ORDERED: SODIUM CHLORIDE 0.9% FLUSH 10 ML FLUSH IV FLUSH PRN (17:00)
[2017-08-13] MEDS ORDERED: ACETAMINOPHEN 325 MG TAB PO PRN (17:00)
[2017-08-13] MEDS ORDERED: DEXTROSE 5% IN WATE 1000ML INJ 1,000 ML IV SCH (17:00)
[2017-08-13] MEDS ORDERED: LACTULOSE SYRUP 20 GM/30 ML CUP PO PRN (17:00)
[2017-08-13] MEDS ORDERED: SENNOSIDES 8.6 MG TAB PO PRN (17:00)
[2017-08-13] MEDS ORDERED: NALOXONE HCL 0.4 MG/ML AMP IV PUSH PRN (17:00)
[2017-08-13] MEDS ORDERED: BISACODYL 10 MG SUPP RECTAL PRN (17:00)
[2017-08-13] MEDS ORDERED: ONDANSETRON HCL 4 MG/2 ML VIAL IVP PRN (17:00)
[2017-08-13] MEDS ORDERED: MAGNESIUM HYDROXIDE SUSP 30 ML CUP PO PRN (17:00)
[2017-08-13 17:12] LABS: BACTERIA, URINE MOD /hpf; BILIRUBIN, URINE NEG (NEG); BLOOD, URINE SMALL (NEG); GLUCOSE,URINE 150 mg/dL (NEG); HYALINE CAST, URINE 17 /lpf (RARE); KETONE, URINE NEG (NEG); MUCUS URINE FEW /lpf (OCC); NITRITE,URINE POS (NEG); SQUAMOUS EPITHELIAL CELL URINE 1 /hpf (0-5); URINE COLOR YELLOW (YELLW/STRAW); URINE LEUKOCYTE ESTERASE LARGE (NEG); WHITE BLOOD CELL CLUMPS MANY
[2017-08-13] MEDS ORDERED: GLUCAGON 1 MG/ML VIAL OTHER PRN (17:30)
[2017-08-13] MEDS ORDERED: DEXTROSE 50% IN WATER 50 ML VIAL(D50) IV PUSH PRN (17:30)
[2017-08-13] MEDS ORDERED: INSULIN ASPART SUPPLEMENTAL SCALE SQ SCH (21:00)
[2017-08-13] MEDS ORDERED: INSULIN DETEMIR 100 UNITS/ML VIAL SQ SCH (21:00)
[2017-08-13] MEDS: HEPARIN SODIUM - SQ 10,000 UNITS/ML VIAL SQ SCH (21:16)
[2017-08-13] MEDS: SODIUM CHLORIDE 0.9% FLUSH 10 ML FLUSH IV FLUSH SCH (21:16)
[2017-08-13] MEDS ORDERED: CHLORHEXIDINE GLUCONATE 2 % 1 PACK (2 CLOTHS)(extra cloths) TOPICAL PRN (21:30)
--- NOTE | 2017-08-13 22:05 | HHI.HP ---
[facility] Admission Diagnosis sepsis, hypernatremia Diagnoses: Chief Complaint: Altered mental status. Travel History International Travel<30 Days: No Contact w/Intl Traveler <30 Da: No Traveled to Known Affected Are: No History of Present Illness Ms. Sánchez is an 86 year old female with a history of dementia, atrial fibrillation who was brought to the ED from her place of residence on 08/13 due to sodium in the 160s. When patient arrived in the ED by ambulance, her GCS was 5 and had a fever of 101. Per ED physician, patient's GCS improved to 12 later. At the time of this interview, patient is not able to participate in the interview. She wakes up on sternal rub and then goes back to sleep. She follows commands minimally. On admission, Na 159, K 5/1, BUN 44, Creatinine 1.47 , Glucose 354, Lactic Acid 2.5. Troponin 0.02. CBC indicated WBC 16.8, Hgb 12.4 , Plt 261. Review of Systems ROS Limitations: Altered Mental Status, Unresponsive, Uncooperative Past Family Social History Past Medical History Atrial fibrillation CHF Diabetes Dementia Seizure Past Surgical History Unable to obtain Reported Medications Lantus Inj (Insulin Glargine) 1,000 Unit/10 Ml Vial 30 Units SQ HS Novolog Inj (Insulin Aspart) 1,000 Unit/10 Ml Vial 0 SQ DIRECTED BGM 70-139 0 units, 140-180 2 untis, 181-240 3 units, 241-300 4mg, 301-350 6 units, 351-400 8 units, >400 10 units [cpap] Reported Ibuprofen 800 Mg Tab 800 Mg PO Q6HR PRN Miralax Powder (Polyethylene Glycol 3350 Powder) 17 Gm Powd 17 Gm PO DAILY Mix and dissolve one measuring cap-ful (17 grams) in water or juice. Pepto-Bismol (Bismuth Subsalicylate) 262 Mg Chew 524 Mg CHEW TID PRN Ranitidine (Ranitidine HCl) 150 Mg Tab 150 Mg PO BID Ventolin Hfa 18 GM Inh (Albuterol Sulfate) 90 Mcg/Act Aer 2 Puff INH Q4H PRN Lisinopril 2.5 Mg Tab 2.5 Mg PO DAILY Keppra (Levetiracetam) 750 Mg Tab 750 Mg PO BID Furosemide 20 Mg Tab 20 Mg PO DAILY Dulcolax Supp (Bisacodyl) 10 Mg Supp 10 Mg RECTAL DAILY PRN Carvedilol 25 Mg Tab 25 Mg PO BID Atorvastatin (Atorvastatin Calcium) 40 Mg Tab 40 Mg PO HS Tylenol (Acetaminophen) 325 Mg Tab 650 Mg PO Q4H PRN Milk of Radha Liq (Magnesium Hydroxide) 400 Mg/5 Ml Susp 30 Ml PO DAILY PRN Allergies: Coded Allergies: erythromycin base (Unverified Allergy, Intermediate, hives, 04/01/17) metformin (Unverified Allergy, Intermediate, hives, 04/01/17) shellfish derived (Unverified Allergy, Intermediate, unknown, 04/01/17) diflunisal (Unverified Adverse Reaction, Intermediate, spacy, 04/01/17) doxycycline (Unverified Adverse Reaction, Intermediate, nausea/vomiting, ) ketorolac (Unverified Adverse Reaction, Intermediate, hallucinations, 04/01) meperidine (Unverified Adverse Reaction, Intermediate, itching, 04/01/17) pioglitazone (Unverified Adverse Reaction, Intermediate, chest pain, ) rosiglitazone (Unverified Adverse Reaction, Intermediate, edema, 04/01/17) sitagliptin (Unverified Adverse Reaction, Unknown, unknown, 04/01/17) Family History Unable to obtain Social History Unable to obtain Physical Exam Vital Signs Vital Signs Date Time Temp Pulse Resp B/P (MAP) Pulse Ox O2 Delivery O2 Flow Rate FiO2 08/13/17 20:49 08/13/17 20:07 76 18 97/51 (66) 97 Nasal Cannula 3.00 08/13/17 18:21 72 17 109/68 (82) 95 Nasal Cannula 08/13/17 16:32 82 23 124/65 (84) 95 Nasal Cannula 2.00 08/13/17 15:37 100 3.00 08/13/17 15:37 100 Nasal Cannula 3.00 08/13/17 15:24 100 Nasal Cannula 3.00 08/13/17 15:19 93 Room Air 08/13/17 15:05 94 21 Physical Exam GENERAL: This is a well-nourished, well-developed patient, in no apparent distress. Wakes up on sternal rub. SKIN: No rashes, ecchymoses or lesions. Warm and dry. HEAD: Atraumatic. Normocephalic. No temporal or scalp tenderness. EYES: Pupils equal round and reactive. No injection or drainage. ENT: Nose without bleeding, purulent drainage or septal hematoma. Airway patent. NECK: Trachea midline. No lymphadenopathy. Supple, nontender, no meningeal signs. CARDIOVASCULAR: Regular rate and rhythm without murmurs, gallops, or rubs. No JVD. RESPIRATORY: Clear to auscultation. Breath sounds equal bilaterally. No wheezes , rales, or rhonchi. GASTROINTESTINAL: Abdomen soft, non-tender, nondistended. No guarding. MUSCULOSKELETAL: Extremities without clubbing, cyanosis, or edema. NEUROLOGICAL: Wakes up on sternal rub. Follows commands minimally. Laboratory Laboratory Tests Test 08/13/17 15:00 08/13/17 15:22 08/13/17 16:16 08/13/17 19:19 White Blood Count 16.8 Red Blood Count 4.36 Hemoglobin 12.4 Hematocrit 39.3 Mean Corpuscular Volume 90.3 Mean Corpuscular Hemoglobin 28.5 Mean Corpuscular Hemoglobin Concent 31.5 Red Cell Distribution Width 14.2 Platelet Count 261 Mean Platelet Volume 9.1 Neutrophils (%) (Auto) 82.0 Lymphocytes (%) (Auto) 10.1 Monocytes (%) (Auto) 7.2 Eosinophils (%) (Auto) 0.1 Basophils (%) (Auto) 0.6 Neutrophils # (Auto) 13.8 Lymphocytes # (Auto) 1.7 Monocytes # (Auto) 1.2 Eosinophils # (Auto) 0.0 Basophils # (Auto) 0.1 CBC Comment DIFF FINAL Differential Comment Prothrombin Time 11.4 Prothromb Time International Ratio 1.1 Activated Partial Thromboplast Time 24.4 Blood Urea Nitrogen 44 Creatinine 1.47 Random Glucose 354 Total Protein 7.0 Albumin 2.3 Calcium Level 8.1 Phosphorus Level 2.9 Magnesium Level 2.4 Alkaline Phosphatase 99 Aspartate Amino Transf (AST/SGOT) 36 Alanine Aminotransferase (ALT/SGPT) 20 Total Bilirubin 0.4 Sodium Level 159 Potassium Level 5.1 Chloride Level 125 Carbon Dioxide Level 26.1 Anion Gap 8 Estimat Glomerular Filtration Rate 34 Total Creatine Kinase 131 Creatine Kinase MB LESS THAN 0.5 Troponin I LESS THAN 0.02 Lactic Acid Level 2.5 0.4 Urine Color YELLOW Urine Turbidity HAZY Urine pH 5.0 Urine Specific [place] 1.013 Urine Protein TRACE Urine Glucose (UA) 150 Urine Ketones NEG Urine Occult Blood SMALL Urine Nitrite POS Urine Bilirubin NEG Urine Urobilinogen LESS THAN 2.0 Urine Leukocyte Esterase LARGE Urine RBC 9 Urine WBC Urine WBC Clumps MANY Urine Squamous Epithelial Cells 1 Urine Bacteria MOD Urine Hyaline Casts 17 Urine Mucus FEW Microscopic Urinalysis Comment CATH-CULTURE IND Test 08/13/17 20:50 Date/Time Source Procedure Growth Status 08/13/17 15:20 Blood Peripheral Aerobic Blood Culture Pending Received 08/13/17 15:20 Blood Peripheral Anaerobic Blood Culture Pending Received 08/13/17 16:16 Nasal Aspirate Influenza Types A,B Antigen (KARRIE) - Final NEGATIVE FOR FLU A AND B ANTIGEN.... Complete 08/13/17 16:16 Urine Catheterized Urine Urine Culture Pending Received Result Diagram: 08/13/17 1500 08/13/17 1500 Imaging Last Impressions Chest X-Ray 08/13/17 1513 Signed Impressions: Service Date/Time: Sunday, August 13, 2017 15:24 - CONCLUSION: No acute disease. There is no evidence of pneumonia. Elio Bauman MD Head CT 08/13/17 0000 Signed Impressions: Service Date/Time: Sunday, August 13, 2017 15:36 - CONCLUSION: 1. No acute hemorrhage or mass effect. 2. Encephalomalacia involving the right frontal and parietal lobes. 3. Moderate atrophy and chronic small vessel ischemic changes. Elio Bauman MD Caprini VTE Risk Assessment Caprini VTE Risk Assessment: Mod/High Risk (score >= 2) Caprini Risk Assessment Model Point Value = 1 Point Value = 2 Point Value = 3 Point Value = 5 Age 41-60 Minor surgery BMI > 25 kg/m2 Swollen legs Varicose veins or History of unexplained or recurrent spontaneous Oral contraceptives or hormone replacement Sepsis (< 1 month) Serious lung disease, including pneumonia (< 1 month) Abnormal pulmonary function Acute myocardial infarction Congestive heart failure (< 1 month) History of inflammatory bowel disease Medical patient at bed rest Age 61-74 Arthroscopic surgery Major open surgery (> 45 min) Laparoscopic surgery (> 45 min) Malignancy Confined to bed (> 72 hours) Immobilizing plaster cast Central venous access Age >= 75 History of VTE Family history of VTE Factor V Leiden Prothrombin [id number] Lupus anticoagulant Anticardiolipin antibodies Elevated serum homocysteine Heparin-induced thrombocytopenia Other congenital or acquired thrombophilia Stroke (< 1 month) Elective arthroplasty Hip, pelvis, or leg fracture Acute spinal cord injury (< 1 month) Prophylaxis Regimen Total Risk Factor Score Risk Level Prophylaxis Regimen 0-1 Low Early ambulation 2 Moderate Order ONE of the following: *Sequential Compression Device (SCD) *Heparin 5000 units SQ BID 3-4 Higher Order ONE of the following medications: *Heparin 5000 units SQ TID *Enoxaparin/Lovenox 40 mg SQ daily (WT < 150 kg, CrCl > 30 mL/min) *Enoxaparin/Lovenox 30 mg SQ daily (WT < 150 kg, CrCl > 10-29 mL/min) *Enoxaparin/Lovenox 30 mg SQ BID (WT < 150 kg, CrCl > 30 mL/min) AND/OR *Sequential Compression Device (SCD) 5 or more Highest Order ONE of the following medications: *Heparin 5000 units SQ TID (Preferred with Epidurals) *Enoxaparin/Lovenox 40 mg SQ daily (WT < 150 kg, CrCl > 30 mL/min) *Enoxaparin/Lovenox 30 mg SQ daily (WT < 150 kg, CrCl > 10-29 mL/min) *Enoxaparin/Lovenox 30 mg SQ BID (WT < 150 kg, CrCl > 30 mL/min) AND *Sequential Compression Device (SCD) Assessment and Plan Problem List: (1) Acute metabolic encephalopathy ICD Code: G93.41 - Metabolic encephalopathy (2) Hypernatremia ICD Code: E87.0 - Hyperosmolality and hypernatremia Status: Acute (3) Dementia ICD Code: F03.90 - Unspecified dementia without behavioral disturbance (4) Atrial fibrillation ICD Code: I48.91 - Unspecified atrial fibrillation Status: Acute (5) Type 2 diabetes mellitus without complications ICD Code: E11.9 - Type 2 diabetes mellitus without complications Status: Acute Assessment and Plan Ms. Sánchez is an 86 year old female with a history of Afib, DM, dementia who was brought to the hospital from her place of residence due to altered mental status, hypernatremia. - Acute metabolic encephalopathy - Dementia - Possibly due to hypernatremia compounded by underlying dementia. - Will continue to monitor clinically. CT head did not reveal any acute findings. CT Head images reviewed by me. - Keep Patient NPO for now. Extremely high aspiration risk at this point. - ED physician discussed with patient's son extensively. He would like her to be in Alternative code status - ACLS, shock, compression are okay but no intubation. - Will consult Palliative care team. - Acute severe hypernatremia - Na on admission 159. She is about 6.8L of free water deficit. - Will start D5W @100cc/hour with a goal to correct Na by 6-8 over 24 hours. - Admit patient to ICU. Will obtain BMP at 10PM and again in the AM. - Diabetes mellitus - Start Levemir 15 units QHS, sliding scale insulin. Add Aspart 5 units TIDAC if patient eats. - Patient is currently NPO and will consult Speech for swallow eval. - Atrial fibrillation - currently rate controlled. Alternate code (ACLS is okay but no intubation). Heparin SQ. Total critical care time spent over 40 minutes. Physician Certification 2 Midnight Certification Type: Admission for Inpatient Services Order for Inpatient Services The services are ordered in accordance with Medicare regulations or non- Medicare payer requirements, as applicable. In the case of services not specified as inpatient-only, they are appropriately provided as inpatient services in accordance with the 2-midnight benchmark. Estimated LOS (days): 3 days is the estimated time the patient will need to remain in the hospital, assuming treatment plan goals are met and no additional complications. Post-Hospital Plan: Home Sabine Cavazos DO Aug 13, 2017 22:05
[2017-08-13 23:34] LABS: BICARBONATE 27.4 MEQ/L (21.0-32.0); CALCIUM 8.5 MG/DL (8.5-10.1); CREATININE 1.58 MG/DL (0.50-1.00)
[2017-08-14] VITALS (12 sets, daily range): BP systolic 107–153; BP diastolic 51–69; PULSE 65–78; RESP 15–26; TEMP 97.3–98.6; O2SAT 95–100
[2017-08-14] MEDS ORDERED: DEXTROSE 50% IN WATER 50 ML VIAL(D50) IV PUSH PRN ×2 (00:15→16:00)
[2017-08-14] MEDS ORDERED: MISC INFORMATION OTHER ONE (00:15)
[2017-08-14] MEDS ORDERED: INSULIN REGULAR (IV INFUSION) 100 UNITS in SODIUM CHLORIDE 0.9% INJ 99 ML IV PRN ×2 (00:15→16:00)
[2017-08-14] MEDS: D5W + KCL 20 MEQ INJ 1,000 ML IV SCH ×3 (00:33→15:34)
[2017-08-14] MEDS: CHLORHEXIDINE GLUCONATE 2 % 1 PACK (2 CLOTHS)(taper/protocol) TOPICAL SCH (04:00)
[2017-08-14] MEDS: SODIUM CHLORIDE 0.9% FLUSH 10 ML FLUSH IV FLUSH SCH ×2 (07:58→20:32)
[2017-08-14] MEDS ORDERED: INSULIN ASPART 1,000 UNITS/10 ML VIAL SQ SCH (08:00)
[2017-08-14] MEDS: HEPARIN SODIUM - SQ 10,000 UNITS/ML VIAL SQ SCH ×2 (08:03→20:34)
--- NOTE | 2017-08-14 12:10 | PD.CONS ---
Consult Service Palliative Care Consult Requested By Dr. Cavazos. Primary Care Physician Non-Staff Reason for Consultation a. To assist with evaluation and management of symptoms including: Confusion ,edema. b. To assist medical decision maker(s) with: better understanding of current medical conditions; weighing benefits/burdens of medical treatment options; making medical treatment decisions. HPI History of Present Illness This is an 86-year-old female patient admitted from [facility] with altered mental status and fever. She had been seen by the [facility] clinic 5 days prior to admission due to a low-grade fever noted by the staff which was felt to be related to a viral illness. Her labs dated 08/07 were reviewed and abnormalities included WBC 11.5, hemoglobin 11.6, hematocrit 35, sodium 150, potassium 4.2, BUN 25, creatinine 1.07, hemoglobin A1c was 10.4, so her Lantus was increased to 30 units daily at bedtime from 25 units daily at bedtime. Her presenting sodium in the ED on 08/13 was 159 and white blood cell count was 16.8. Her random glucose was 354. CT of the head showed no acute hemorrhage or mass effect with encephalomalacia involving the right frontal and parietal lobes. Moderate atrophy and chronic small vessel ischemic changes were also noted. Nasal aspirate was negative for flu a and B. Urine culture is pending. Presenting white blood cell count was 16.8, hemoglobin 12.4, hematocrit 39.3, platelets 261, sodium remained 159, potassium 4.2, BUN 54, creatinine 1.58 with glucose 424. She is seen in [facility], lethargic, arousable with loud verbal stimuli, does not answer questions, does not follow commands. No information can be obtained from the patient. Per my discussion with the RN, her daughters are scheduled to be in to see the patient mono. One daughter lives in [place] and the other daughter is flying in from [place]. . 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 It is felt that the hemorrhagic strokes were secondary to Coumadin use for thromboembolic prophylaxis for atrial fibrillation. She is currently off Coumadin secondary to the 2 hemorrhagic strokes and so is at risk for thromboembolic stroke secondary to atrial fibrillation. Per her children she is currently wheelchair bound and over the last week has become bedbound. She previously would go outside with her daughter in the wheelchair daily but for the last week has been too lethargic and weak to be able to do that. Her son, Boo notes a decline over the last year that he is noted in her mentation and movement. Her daughter, Divya, agrees that their mother has declined over this last year. At one point she required thickened liquids due to dysphagia, then briefly was able to swallow thin liquids but then showed s/s of aspiration and was changed back to thickened liquids again prior to admission. . Review of Systems ROS Limitations: Clinical Condition, Altered Mental Status, Speech Impaired ( Patient is nonverbal and unable to provide their own ROS. 10 part ROS taken as best as possible from medical record and available family.) Past Family Social History Coded Allergies: erythromycin base (Unverified Allergy, Intermediate, hives, 04/01/17) metformin (Unverified Allergy, Intermediate, hives, 04/01/17) shellfish derived (Unverified Allergy, Intermediate, unknown, 04/01/17) diflunisal (Unverified Adverse Reaction, Intermediate, spacy, 04/01/17) doxycycline (Unverified Adverse Reaction, Intermediate, nausea/vomiting, ) ketorolac (Unverified Adverse Reaction, Intermediate, hallucinations, 04/01) meperidine (Unverified Adverse Reaction, Intermediate, itching, 04/01/17) pioglitazone (Unverified Adverse Reaction, Intermediate, chest pain, ) rosiglitazone (Unverified Adverse Reaction, Intermediate, edema, 04/01/17) sitagliptin (Unverified Adverse Reaction, Unknown, unknown, 04/01/17) Past Medical History TIA November 2011 in August 2012 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 Past Surgical History Unable to obtain . Reported Medications Reported Meds & Active Scripts Active Lantus Inj (Insulin Glargine) 1,000 Unit/10 Ml Vial 30 Units SQ HS Novolog Inj (Insulin Aspart) 1,000 Unit/10 Ml Vial 0 SQ DIRECTED BGM 70-139 0 units, 140-180 2 untis, 181-240 3 units, 241-300 4mg, 301-350 6 units, 351-400 8 units, >400 10 units [cpap] Reported Ibuprofen 800 Mg Tab 800 Mg PO Q6HR PRN Miralax Powder (Polyethylene Glycol 3350 Powder) 17 Gm Powd 17 Gm PO DAILY Mix and dissolve one measuring cap-ful (17 grams) in water or juice. Pepto-Bismol (Bismuth Subsalicylate) 262 Mg Chew 524 Mg CHEW TID PRN Ranitidine (Ranitidine HCl) 150 Mg Tab 150 Mg PO BID Ventolin Hfa 18 GM Inh (Albuterol Sulfate) 90 Mcg/Act Aer 2 Puff INH Q4H PRN Lisinopril 2.5 Mg Tab 2.5 Mg PO DAILY Keppra (Levetiracetam) 750 Mg Tab 750 Mg PO BID Furosemide 20 Mg Tab 20 Mg PO DAILY Dulcolax Supp (Bisacodyl) 10 Mg Supp 10 Mg RECTAL DAILY PRN Carvedilol 25 Mg Tab 25 Mg PO BID Atorvastatin (Atorvastatin Calcium) 40 Mg Tab 40 Mg PO HS Tylenol (Acetaminophen) 325 Mg Tab 650 Mg PO Q4H PRN Milk of Magnesia Liq (Magnesium Hydroxide) 400 Mg/5 Ml Susp 30 Ml PO DAILY PRN . Current Medications Medications (Trade) Dose Ordered Sig/Maria Isabel Route Start Time Stop Time Status Last Admin (NS Flush) 2 ml UNSCH PRN IV FLUSH 08/13/17 17:00 (NS Flush) 2 ml BID IV FLUSH 08/13/17 21:00 08/14/17 07:58 (Tylenol) 650 mg Q4H PRN PO 08/13/17 17:00 (Zofran Inj) 4 mg Q6H PRN IVP 08/13/17 17:00 (Narcan Inj) 0.4 mg UNSCH PRN IV PUSH 08/13/17 17:00 (Milk Of Magnesia Liq) 30 ml Q12H PRN PO 08/13/17 17:00 (Senokot) 17.2 mg Q12H PRN PO 08/13/17 17:00 (Dulcolax Supp) 10 mg DAILY PRN RECTAL 08/13/17 17:00 (Lactulose Liq) 30 ml DAILY PRN PO 08/13/17 17:00 (Heparin Inj) 5,000 units Q12HR SQ 08/13/17 21:00 08/14/17 08:03 Miscellaneous Information Patient in critical care unit? Ass... Q361D .XX 08/13/17 21:30 (Chlorhexidine 2% Cloth) 3 pack DAILY@04 TOPICAL 08/14/17 04:00 08/18/17 04:01 08/14/17 04:00 (Chlorhexidine 2% Cloth) 3 pack UNSCH PRN TOPICAL 08/13/17 21:30 08/18/17 21:29 Potassium Chloride/Dextrose 1,000 ml @ 125 mls/hr Q8H IV 08/14/17 00:15 08/14/17 08:25 Insulin Human Regular 100 units/ Sodium Chloride 100 ml @ 0.5 mls/hr TITRATE PRN IV 08/14/17 00:15 08/14/17 00:36 (D50w (Vial) Inj) 50 ml UNSCH PRN IV PUSH 08/14/17 00:15 . Family History 4 children, one daughter with MS, others L&W (per patient who is unreliable) * Jarod Briseno (daughter) lives in [place]-primary contact [phone] * Kaushal Sánchez (son) lives in [place]-medical and financial POA [phone] (cell) * Megan Sánchez (daughter) lives in [place]-medical POA (cell) * . Substance Use Tobacco: Per medical record denies previous use. Alcohol: Per medical record denies previous use. Prescription med abuse:Per medical record denies previous use. Illicits:Per medical record denies previous use. . Psychosocial History Previously lived in [place] where she suffered the 2 hemorrhagic strokes and had been in rehabilitation at [facility] in [place], [place] but was subsequently discharged October 2015. She moved to [place] to be closer to her daughter and was admitted to [facility] for further rehabilitation. 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 Patient was previously a DNR . Spiritual/Cultural Factors Hammer Driver available. . Living Will: Copy in medical record Health Care Surrogate: Copy in medical record Durable Power of Salesforce Developer: Copy in medical record Health Care Surrogate(s): Kaushal Sánchez (son) lives in [place]-medical and financial POA [phone] (cell) Megan Sánchez (daughter) lives in [place]-[facility] POA (cell) . Physical Exam Vital Signs Date Time Temp Pulse Resp B/P (MAP) Pulse Ox O2 Delivery O2 Flow Rate FiO2 08/14/17 10:00 100 Nasal Cannula 1.00 08/14/17 10:00 70 08/14/17 08:00 71 08/14/17 08:00 97.8 71 15 116/59 (78) 99 08/14/17 06:00 69 08/14/17 04:00 71 08/14/17 04:00 97.5 71 18 110/69 (83) 99 08/14/17 02:00 72 08/14/17 00:00 72 08/14/17 00:00 97.3 72 20 107/51 (69) 99 08/13/17 22:10 99 Nasal Cannula 2.00 08/13/17 22:00 74 08/13/17 21:00 97.7 75 19 91/49 (63) 98 08/13/17 20:49 08/13/17 20:07 76 18 97/51 (66) 97 Nasal Cannula 3.00 08/13/17 18:21 72 17 109/68 (82) 95 Nasal Cannula 08/13/17 16:32 82 23 124/65 (84) 95 Nasal Cannula 2.00 08/13/17 15:37 100 3.00 08/13/17 15:37 100 Nasal Cannula 3.00 08/13/17 15:24 100 Nasal Cannula 3.00 08/13/17 15:19 93 Room Air 08/13/17 15:05 94 21 Exam CONSTITUTIONAL/GENERAL: This is an elderly, ill-appearing, obese patient, in no apparent distress. TUBES/LINES/DRAINS: PIV SKIN: No jaundice, rashes, or lesions. No wounds seen anteriorly. Skin temperature appropriate. Not diaphoretic. HEAD: Atraumatic. Normocephalic. EYES: Pupils equal and round and reactive. Extraocular motions intact. No scleral icterus. No injection or drainage. Fundi not examined. ENT: Hearing grossly normal. Nose without bleeding or purulent drainage. Throat without visible erythema, exudates, masses, or lesions. NECK: Trachea midline. Supple, nontender. No palpable thyroid enlargement or nodularity. CARDIOVASCULAR: Regular rate and rhythm without murmurs, gallops, or rubs. No JVD. Peripheral pulses symmetric. RESPIRATORY/CHEST: Symmetric, unlabored respirations. Clear to auscultation. Breath sounds equal bilaterally. No wheezes, rales, or rhonchi. GASTROINTESTINAL: Abdomen soft, non-tender, nondistended. No hepato-splenomegaly , or palpable masses. No guarding. Bowel sounds present. GENITOURINARY: Without palpable bladder distension. Cardoso catheter in place. MUSCULOSKELETAL: Extremities without clubbing, cyanosis, or edema. No joint tenderness or effusion noted. No calf tenderness. No mottling or clubbing. Left hemiparesis NEUROLOGICAL: Arousable to strong verbal stimuli, lethargic, does not follow commands, does not answer questions. Appears confused. Stares off in space. PSYCHIATRIC: No obvious anxiety/depression. no apparent hallucinations or other psychotic thought process. . Diagnostic Tests Laboratory Laboratory Tests Test 08/13/17 15:00 08/13/17 15:22 08/13/17 16:16 08/13/17 19:19 White Blood Count 16.8 TH/MM3 (4.0-11.0) Red Blood Count 4.36 MIL/MM3 (4.00-5.30) Hemoglobin 12.4 GM/DL (11.6-15.3) Hematocrit 39.3 % (35.0-46.0) Mean Corpuscular Volume 90.3 FL (80.0-100.0) Mean Corpuscular Hemoglobin 28.5 PG (27.0-34.0) Mean Corpuscular Hemoglobin Concent 31.5 % (32.0-36.0) Red Cell Distribution Width 14.2 % (11.6-17.2) Platelet Count 261 TH/MM3 (150-450) Mean Platelet Volume 9.1 FL (7.0-11.0) Neutrophils (%) (Auto) 82.0 % (16.0-70.0) Lymphocytes (%) (Auto) 10.1 % (9.0-44.0) Monocytes (%) (Auto) 7.2 % (0.0-8.0) Eosinophils (%) (Auto) 0.1 % (0.0-4.0) Basophils (%) (Auto) 0.6 % (0.0-2.0) Neutrophils # (Auto) 13.8 TH/MM3 (1.8-7.7) Lymphocytes # (Auto) 1.7 TH/MM3 (1.0-4.8) Monocytes # (Auto) 1.2 TH/MM3 (0-0.9) Eosinophils # (Auto) 0.0 TH/MM3 (0-0.4) Basophils # (Auto) 0.1 TH/MM3 (0-0.2) CBC Comment DIFF FINAL Differential Comment Prothrombin Time 11.4 SEC (9.8-11.6) Prothromb Time International Ratio 1.1 RATIO Activated Partial Thromboplast Time 24.4 SEC (24.3-30.1) Blood Urea Nitrogen 44 MG/DL (7-18) Creatinine 1.47 MG/DL (0.50-1.00) Random Glucose 354 MG/DL (74-106) Total Protein 7.0 GM/DL (6.4-8.2) Albumin 2.3 GM/DL (3.4-5.0) Calcium Level 8.1 MG/DL (8.5-10.1) Phosphorus Level 2.9 MG/DL (2.5-4.9) Magnesium Level 2.4 MG/DL (1.5-2.5) Alkaline Phosphatase 99 U/L (45-117) Aspartate Amino Transf (AST/SGOT) 36 U/L (15-37) Alanine Aminotransferase (ALT/SGPT) 20 U/L (10-53) Total Bilirubin 0.4 MG/DL (0.2-1.0) Sodium Level 159 MEQ/L (136-145) Potassium Level 5.1 MEQ/L (3.5-5.1) Chloride Level 125 MEQ/L (98-107) Carbon Dioxide Level 26.1 MEQ/L (21.0-32.0) Anion Gap 8 MEQ/L (5-15) Estimat Glomerular Filtration Rate 34 ML/MIN (>89) Total Creatine Kinase 131 U/L (26-192) Creatine Kinase MB LESS THAN 0.5 NG/ML Troponin I LESS THAN 0.02 NG/ML Lactic Acid Level 2.5 mmol/L (0.4-2.0) 0.4 mmol/L (0.4-2.0) Urine Color YELLOW (YELLW/STRAW) Urine Turbidity HAZY (CLEAR) Urine pH 5.0 (5.0-8.5) Urine Specific [place] 1.013 (1.002-1.035) Urine Protein TRACE mg/dL (NEG-TRACE) Urine Glucose (UA) 150 mg/dL (NEG) Urine Ketones NEG mg/dL (NEG) Urine Occult Blood SMALL (NEG) Urine Nitrite POS (NEG) Urine Bilirubin NEG (NEG) Urine Urobilinogen LESS THAN 2.0 MG/DL (LESS Urine Leukocyte Esterase LARGE (NEG) Urine RBC 9 /hpf (0-3) Urine WBC /hpf (0-5) Urine WBC Clumps MANY (NONE) Urine Squamous Epithelial Cells 1 /hpf (0-5) Urine Bacteria MOD /hpf (NONE) Urine Hyaline Casts 17 /lpf (RARE) Urine Mucus FEW /lpf (OCC) Microscopic Urinalysis Comment CATH-CULTURE IND Test 08/13/17 20:50 08/13/17 22:19 Nasal Screen MRSA (PCR) MRSA NOT DETECTED (NOT Blood Urea Nitrogen 54 MG/DL (7-18) Creatinine 1.58 MG/DL (0.50-1.00) Random Glucose 424 MG/DL (74-106) Calcium Level 8.5 MG/DL (8.5-10.1) Sodium Level 159 MEQ/L (136-145) Potassium Level 4.2 MEQ/L (3.5-5.1) Chloride Level 124 MEQ/L (98-107) Carbon Dioxide Level 27.4 MEQ/L (21.0-32.0) Anion Gap 8 MEQ/L (5-15) Estimat Glomerular Filtration Rate 31 ML/MIN (>89) . Result Diagram: 08/13/17 1500 08/13/17 8674 Microbiology Microbiology Date/Time Source Procedure Growth Status 08/13/17 15:20 Blood Peripheral Aerobic Blood Culture Pending Received 08/13/17 15:20 Blood Peripheral Anaerobic Blood Culture Pending Received 08/13/17 15:15 Blood Peripheral Aerobic Blood Culture Pending Received 08/13/17 15:15 Blood Peripheral Anaerobic Blood Culture Pending Received 08/13/17 16:16 Nasal Aspirate Influenza Types A,B Antigen (KARRIE) - Final NEGATIVE FOR FLU A AND B ANTIGEN.... Complete 08/13/17 16:16 Urine Catheterized Urine Urine Culture Pending Received Imaging Last Impressions Chest X-Ray 08/13/17 1513 Signed Impressions: Service Date/Time: Sunday, August 13, 2017 15:24 - CONCLUSION: No acute disease. There is no evidence of pneumonia. Elio Bauman MD Head CT 08/13/17 0000 Signed Impressions: Service Date/Time: Sunday, August 13, 2017 15:36 - CONCLUSION: 1. No acute hemorrhage or mass effect. 2. Encephalomalacia involving the right frontal and parietal lobes. 3. Moderate atrophy and chronic small vessel ischemic changes. Elio Bauman MD Patient/Family Conference Present at Family Conference: Spoke with daughter, Divya, and son, Boo, via telephone regarding patient's current condition, clinical findings and clinical course. Reviewed prior function and trajectory of decline. Reviewed clinical course since 2013 when patient did complete living will and power of civil structural designer containing HCS naming her son Boo and her daughter, Megan, who lives in [place] where the patient used to reside, as her healthcare surrogates. Reviewed the different aspects of CODE STATUS to include intubation (which the patient has declined), and the risks and benefits of CPR, to include worsening brain function, possible broken ribs and inability to resuscitate. At this time all 3 children are working together to come to a harmonious agreement on their mother's wishes, given her current state of health and function. For now they wish to continue with her prior wishes as stated in the POLST, which the son emailed to me. Plan for family meeting tomorrow morning at 9:30 to discuss with both daughters, and son if he is available by telephone. . Family Conference Time (mins): 40 (minutes) Family Conference Location: Telephone Issues Discussed: * Palliative care role, purpose, approach * Additional medical, psychosocial, and spiritual history * Patients general health, functional status, and cognitive changes in the months leading up to the current hospitalization * Patient/family understanding of the current medical problems * Patient/family understanding of prognosis * Patients goals of care as best understood from advance directives and/or conversations and/or values * Current medical treatment options and benefits/burdens of those options * Likely scenarios comparing ongoing aggressive care with a transition to comfort measures only * Questions answered to the best of my ability * Palliative care contact information provided Assessment and Plan Disease Oriented Problem List: (1) Dementia associated with other underlying disease without behavioral disturbance (2) Hypernatremia (3) Altered mental status (4) Hemiparesis affecting left side as late effect of cerebrovascular accident (5) Hemorrhagic cerebrovascular accident (CVA) (6) Atrial fibrillation (7) Obstructive sleep apnea Symptom Scale: (1) Fever (2) Altered mental status Pertinent Non-Medical Issues Psychosocial:Previously lived in [place] where she suffered the 2 hemorrhagic strokes and had been in rehabilitation at [facility] in [place], [place] but was subsequently discharged October 2015. She moved to [place] to be closer to her daughter and was admitted to [facility] for further rehabilitation. 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 Patient was previously a DNR . Spiritual: Hammer Driver available . Legal: No issues noted. . Ethical issues impacting care: No issues noted. . Important Contacts * Jarod Briseno (daughter) lives in [place]-primary contact [phone] * Kaushal S[facility] ([facility] POA [phone] (cell) * Megan Sánchez (daughter) lives in [facility] POA (cell) * . Code Status: Alternative Code (previously a DNR, currently no intubation but okay with CPR, meds and shock.) Plan PLAN: Legal decision maker: OA states joint or severally Kaushal Sánchez (son) [facility] POA [phone] (cell) Megan Sánchez (daughter) lives in [facility] POA (cell) Goals: We will allow CPR, medications and shock in case of a code but will not accept intubation. CODE STATUS: Alternative code SYMPTOMS: * Confusion: Likely multifactorial to include possible urinary tract infection, hypernatremia, dehydration, underlying effects of a previous CVA. She continues to receive IV rehydration with D5 W with 20 KCl at 125 mL per hour as well as Rocephin 1 g IV daily. She had previously some noted cognitive dysfunction after her CVA, which has worsened recently per her family. Initial urinary culture shows gram-negative alon, will follow for culture and sensitivity. * Fever: She was seen 6 days prior to admission by [facility] service to be evaluated for low-grade fevers. Her presenting fever in the ED was 101. She has been afebrile since that time. Continue monitoring vital signs per orders. Tylenol for fever as needed. Urine and blood cultures pending. She is negative for influenza A and B. SUMMARY This is an 86-year-old female wheelchair-bound, residing in a half-way facility, status post hemorrhagic strokes 2, one in 2012 and the second in 2014. She has left hemiplegia and has developed dysphagia requiring physicians liquids. She is at increased risk of ischemic CVA as she is unable to be anticoagulated for her atrial fibrillation as well as an increased risk of pneumonia secondary to dysphagia and risk of aspiration. At this time she is an alternative code, declining intubation, but is accepting CPR, defibrillation and drugs. Family meeting is planned for tomorrow morning to review with remaining sister who is currently in transit from [place]. Family is reviewing mother's previous decisions on CODE STATUS to determine if they are consistent with her wishes given her sustained decline in her current medical condition. Palliative care will continue to follow the patient during hospital course as condition evolves, to assist patient/decision-maker with understanding of their medical conditions, weighing benefits/burdens of treatment options, for clarification of goals of treatment. Additionally will assist with any symptoms of palliative concern. . Time Spent Time Periods: 13:15-14:30 Total Floor Time (mins): 40 >50% Counseling/Coord of Care: Yes Thank you for the opportunity to participate in the care of Ms. Sánchez. Attestation To help prompt me to consider important information that might be impacting today's encounter and assessment, information from prior notes written by myself or my colleagues may have been "brought forward" into today's note. My signature on this note, however, is an attestation that I personally performed the exam, history, and/or decision-making noted today, and, unless otherwise indicated, the interactions with patient, family, and staff as well as the review of records all occurred today. I also attest that the listed assessment and stated plan reflect my best clinical judgment today based on the combination of historical information, prior notes, and today's exam/ interactions. When time spent is documented, it refers only to time spent today by the signer, or if indicated, combined time spent today by collaborating physician/nurse practitioner. . Tati Bains Aug 14, 2017 12:09 pm
--- NOTE | 2017-08-14 12:40 | HHI.FPPN ---
Subjective Remarks No acute events overnight. VS unremarkable. This morning patient is awake and alert and only knows her first name. Unable to communicate or follow commands. Nurse reports that there has not seen any acute changes Objective Vitals Vital Signs Date Time Temp Pulse Resp B/P (MAP) Pulse Ox O2 Delivery O2 Flow Rate FiO2 08/14/17 12:00 97.5 71 15 124/60 (81) 97 08/14/17 12:00 71 08/14/17 10:00 100 Nasal Cannula 1.00 08/14/17 10:00 70 08/14/17 08:00 71 08/14/17 08:00 97.8 71 15 116/59 (78) 99 08/14/17 06:00 69 08/14/17 04:00 71 08/14/17 04:00 97.5 71 18 110/69 (83) 99 08/14/17 02:00 72 08/14/17 00:00 72 08/14/17 00:00 97.3 72 20 107/51 (69) 99 08/13/17 22:10 99 Nasal Cannula 2.00 08/13/17 22:00 74 08/13/17 21:00 97.7 75 19 91/49 (63) 98 08/13/17 20:49 08/13/17 20:07 76 18 97/51 (66) 97 Nasal Cannula 3.00 08/13/17 18:21 72 17 109/68 (82) 95 Nasal Cannula 08/13/17 16:32 82 23 124/65 (84) 95 Nasal Cannula 2.00 08/13/17 15:37 100 3.00 08/13/17 15:37 100 Nasal Cannula 3.00 08/13/17 15:24 100 Nasal Cannula 3.00 08/13/17 15:19 93 Room Air 08/13/17 15:05 94 21 I/O 08/13/17 08/13/17 08/13/17 08/14/17 08/14/17 08/14/17 07:00 15:00 23:00 07:00 15:00 23:00 Intake Total 1350 ml 928.1 ml 1000 ml Output Total 350 ml Balance 1350 ml 578.1 ml 1000 ml Intake Oral 0 ml IV Total 1350 ml 928.1 ml 1000 ml Output Urine Total 350 ml # Bowel Movements 0 Result Diagram: 08/13/17 1500 08/13/17 2219 Imaging Last Impressions Chest X-Ray 08/13/17 1513 Signed Impressions: Service Date/Time: Sunday, August 13, 2017 15:24 - CONCLUSION: No acute disease. There is no evidence of pneumonia. Elio Bauman MD Head CT 08/13/17 0000 Signed Impressions: Service Date/Time: Sunday, August 13, 2017 15:36 - CONCLUSION: 1. No acute hemorrhage or mass effect. 2. Encephalomalacia involving the right frontal and parietal lobes. 3. Moderate atrophy and chronic small vessel ischemic changes. Elio Bauman MD Objective Remarks GEN: Well-developed, well-nourished patient. No acute distress. Resting comfortably in bed but obviously confused. CV: Regular rate and rhythm without obvious murmurs LUNGS: Clear to auscultation bilaterally. Normal respiratory effort. No wheezes , rales, rhonchi. GI: Soft, nontender, nondistended. Bowel sounds present. No palpable masses. EXT: No edema. No calf tenderness. NEURO/PSYCH: Awake, alert. Able to state her first name only. Unable to answer questions regarding her last name, current location. Is able to state that she has no pain and is comfortable. A/P Assessment and Plan 86 yo female with HX of hemorrhagic CVA x2, dementia, afib, seizures, and DM type 2. Admitted due to hyponatremia and acute metabolic encephalopathy Discharge Planning unknown at this time due to severe clinical status. To be readdressed wdw Dr. Whiting Problem List: (1) Acute metabolic encephalopathy ICD Codes: G93.41 - Metabolic encephalopathy Status: Acute Plan: Patient with a history of dementia but baseline neurological status appears to be patient oriented to self and is able to answer questions appropriately. Chart review suggests the patient developed fever a few days prior to admission which was initially suspected to be due to viral illness. She then developed dysuria on 08/10 where a UA was obtained that I am unable to locate results. On admission she had a reported GCS of 5 and a fever of 101 that has since resolved. Etiology likely multifactorial at this point as pt was found to have hypernatremia and UTI. (2) UTI (urinary tract infection) ICD Codes: N39.0 - Urinary tract infection, site not specified Status: Acute Plan: UA with positive nitrites. Vanc and zosyn give x1 in the ED. -Urine culture: Positive gram negative alon -continue Rocephin 1g (08/14- (3) Hypernatremia ICD Codes: E87.0 - Hyperosmolality and hypernatremia Status: Acute Plan: Presented due to hypernatremia found as an outpatient. Admission Na of 159. Slowly downtrending. -max goal of 7meq in 24hrs -serial BMPs (4) Sepsis ICD Codes: A41.9 - Sepsis, unspecified organism Status: Resolved Plan: Met sepsis criteria on admission with fever and leukocytosis. Source urine. --Lactic acid has improved --blood cultures negative x1 day --please see more detailed plan above. (5) Type 2 diabetes mellitus without complications ICD Codes: E11.9 - Type 2 diabetes mellitus without complications Status: Acute Plan: Takes 25 units of Lantus at home. Found to be hypoglycemic on admission. -Hyperglycemia worsened by D5 fluids -Started on insulin drip, weaned off to subq as patient is able to take food PO -Levemir 5units BID, to be titrated up as PO intake improves -low dose sliding scale (6) AILYN (acute kidney injury) ICD Codes: N17.9 - Acute kidney failure, unspecified Status: Acute Plan: Baseline Cr around 1. Admission Cr 1.47. Continues to improve. (7) History of seizure ICD Codes: Z87.898 - Personal history of other specified conditions Plan: Takes Keppra as home medication -Resume home keppra -keppra level ordered (8) Atrial fibrillation ICD Codes: I48.91 - Unspecified atrial fibrillation Status: Acute Plan: Hx of Afib. Currently rate controlled. Not on anticoagulation due to hx of hemorrhagic CVA. Last event 2014 -continue home medications: carvedilol 25mg BID (9) Dementia ICD Codes: F03.90 - Unspecified dementia without behavioral disturbance Plan: Hx of dementia but patient is able to communicate at baseline. (10) Nutrition, metabolism, and development symptoms ICD Codes: R63.8 - Other symptoms and signs concerning food and fluid intake Plan: Diet: Diabetic, pureed Fluids: D5W +KCL at 100 Electrolytes: See above DVT PPX: Heparin q12 GI PPX: not indicated at this time Problem Qualifiers (1) Sepsis: Qualified Codes: A41.9 - Sepsis, unspecified organism Salome Cervantes MD, R3 Aug 14, 2017 12:40
[2017-08-14] MEDS ORDERED: ENALAPRILAT 1.25 MG/ML VIAL IV PUSH PRN (13:15)
[2017-08-14 13:16] LABS: AUTOMATED NEUTROPHIL # 13.6 TH/MM3 (1.8-7.7); BASOPHIL % 0.2 % (0.0-2.0); EOSINOPHIL # 0.2 TH/MM3 (0-0.4); EOSINOPHIL % 0.9 % (0.0-4.0); HEMATOCRIT 38.5 % (35.0-46.0); HEMOGLOBIN 12.1 GM/DL (11.6-15.3); LYMPH % 16.9 % (9.0-44.0); MEAN CELL VOLUME 89.9 FL (80.0-100.0); MEAN CORPUSCULAR HEMOGLOBIN 28.2 PG (27.0-34.0); MEAN CORPUSCULAR HGB CONC 31.3 % (32.0-36.0); MEAN PLATELET VOLUME 8.8 FL (7.0-11.0); MONO % 5.5 % (0.0-8.0); NEUT % 76.5 % (16.0-70.0); PLATELET COUNT 234 TH/MM3 (150-450); RED BLOOD COUNT 4.28 MIL/MM3 (4.00-5.30); RED CELL DISTRIBUTION WIDTH 13.9 % (11.6-17.2); WHITE BLOOD COUNT 17.8 TH/MM3 (4.0-11.0)
[2017-08-14 13:40] LABS: BICARBONATE 28.6 MEQ/L (21.0-32.0); CALCIUM 8.6 MG/DL (8.5-10.1); CREATININE 1.13 MG/DL (0.50-1.00)
[2017-08-14] MEDS ORDERED: PILL SPLITTER OTHER PRN (13:45)
[2017-08-14] MEDS: cefTRIAXone INJ 1,000 MG in SODIUM CHLORIDE 0.9% INJ 100 ML IV SCH (15:32)
[2017-08-14] MEDS ORDERED: GLUCAGON 1 MG/ML VIAL OTHER PRN (16:00)
[2017-08-14] MEDS: INSULIN DETEMIR 100 UNITS/ML VIAL SQ SCH (17:23)
[2017-08-14] MEDS: INSULIN ASPART SUPPLEMENTAL SCALE SQ SCH ×2 (17:47→20:32)
[2017-08-14] MEDS ORDERED: D5W + KCL 20 MEQ INJ 1,000 ML IV SCH (20:15)
[2017-08-14] MEDS: CARVEDILOL 12.5 MG TAB PO SCH (20:32)
[2017-08-14] MEDS: ATORVASTATIN 40 MG TAB PO SCH (20:32)
[2017-08-14] MEDS: levETIRAcetam 250 MG TAB PO SCH (20:32)
[2017-08-14] MEDS ORDERED: DC Insulin drip 2 hrs post basal insulin dose ONE (23:00)
[2017-08-15] VITALS (13 sets, daily range): BP systolic 110–144; BP diastolic 53–62; PULSE 68–79; RESP 12–24; TEMP 97.5–98.9; O2SAT 95–99
[2017-08-15 01:04] LABS: CREATININE 1.04 MG/DL (0.50-1.00)
[2017-08-15] MEDS ORDERED: INSULIN DETEMIR 100 UNITS/ML VIAL SQ ONE (01:15)
[2017-08-15] MEDS: CHLORHEXIDINE GLUCONATE 2 % 1 PACK (2 CLOTHS)(taper/protocol) TOPICAL SCH (04:00)
[2017-08-15] MEDS: INSULIN DETEMIR 100 UNITS/ML VIAL SQ SCH (04:05)
[2017-08-15] MEDS: INSULIN ASPART SUPPLEMENTAL SCALE SQ SCH ×4 (07:44→21:08)
[2017-08-15 07:53] LABS: AUTOMATED NEUTROPHIL # 9.7 TH/MM3 (1.8-7.7); BASOPHIL # 0.1 TH/MM3 (0-0.2); BASOPHIL % 0.4 % (0.0-2.0); EOSINOPHIL # 0.1 TH/MM3 (0-0.4); HEMATOCRIT 37.2 % (35.0-46.0); HEMOGLOBIN 11.9 GM/DL (11.6-15.3); MEAN CELL VOLUME 88.6 FL (80.0-100.0); MEAN CORPUSCULAR HEMOGLOBIN 28.4 PG (27.0-34.0); MEAN PLATELET VOLUME 9.5 FL (7.0-11.0); MONO % 4.9 % (0.0-8.0); MONOCYTE # 0.7 TH/MM3 (0-0.9); NEUT % 71.7 % (16.0-70.0); PLATELET COUNT 226 TH/MM3 (150-450); RED CELL DISTRIBUTION WIDTH 13.7 % (11.6-17.2); WHITE BLOOD COUNT 13.6 TH/MM3 (4.0-11.0)
[2017-08-15] MEDS: SODIUM CHLORIDE 0.9% FLUSH 10 ML FLUSH IV FLUSH SCH ×2 (07:54→20:51)
[2017-08-15] MEDS: HEPARIN SODIUM - SQ 10,000 UNITS/ML VIAL SQ SCH ×2 (07:56→20:51)
[2017-08-15] MEDS: levETIRAcetam 250 MG TAB PO SCH ×2 (07:56→20:51)
[2017-08-15] MEDS: LISINOPRIL 5 MG TAB PO SCH (08:00)
[2017-08-15 08:13] LABS: BICARBONATE 28.7 MEQ/L (21.0-32.0); CALCIUM 8.3 MG/DL (8.5-10.1); CREATININE 1.06 MG/DL (0.50-1.00)
[2017-08-15] MEDS: CARVEDILOL 12.5 MG TAB PO SCH ×2 (08:35→20:51)
--- NOTE | 2017-08-15 09:45 | HHI.HCPN ---
Reason for visit a. To assist with evaluation and management of symptoms including: Confusion , fever, edema b. To assist medical decision maker(s) with: better understanding of current medical conditions; weighing benefits/burdens of medical treatment options; making medical treatment decisions. Subjective/Interval History 86-year-old long-term patient from [facility] admitted with hypernatremia , dehydration, UTI, fever, sepsis, improving after 48 hours of IV rehydration and antibiotic delivery. Labs show improvement with white blood cells down to 13.6 from 17.8, and sodium down to 151 from 159. Kidney function is improving with BUN 37, down from 54 and creatinine 1.06, down from 1.5. Blood glucose has stabilized from 424 266. Insulin drip has been discontinued. Patient remains on D5W with 20 mEq of potassium at 58 mL/hour. Vital signs have been stable and she has remained afebrile. Urine culture shows a preliminary finding of gram-negative jr, pending further developments. At this evaluation she is arousable, more alert than seen at yesterday's assessment. She is able to smile and answer some yes/no questions but, still sometimes stares off into space and does not answer, requiring re-cueing and encouragement to answer. She has been evaluated by speech therapy who has set her diet consistency as pured with nectar consistency thickened liquids. It was noted that she was unable to form a bolus with solids. She has a previous history of 2 hemorrhagic strokes. . Family/friend interactions 10:15-11:00: Met with Divya Briseno and Megan Sánchez, patient's daughters and reviewed patient's clinical course, past medical history, comorbid conditions, contributing factors to this admission and possibility of recurrence. Previous medical advance directives were reviewed with consideration of patient's quality of life. Discussed the option of hospice to follow at senior care facility. Their brother, Boo, was unavailable to attend the meeting however did schedule for later in the day. 12:00-1:00: Met again with Holly, with their brother, Boo, and his , Rowena, via telephone. fire prevention bureau captain, Kyara Tarango also attended to provide information for hospice at the family's request. Again reviewed clinical course , past medical history, comorbid conditions, contributing factors to this admission and possibility even likelihood, of recurrence. Again medical advance directives were reviewed with the brother as well as the patient's quality of life. At this meeting, both daughters had spent an hour visiting with their mother after our previous conversation and at this time recognized that their mother did not know either of them were, did not recognize family pictures or pictures of the animals. They note a decline in her condition that she is less interactive, more in her own world, staring off into space. After significant discussion they determined that a DO NOT RESUSCITATE status would be more consistent with their mother's wishes given the change in circumstances since the advance medical directives were created and that they would appreciate the addition of hospice oversight to make sure that their mother's comfort and quality of life for maximized. Hospice consents being signed at and meeting. Patient will be made a DNR. . Advance Directives Living Will: Copy in medical record Health Care Surrogate: Copy in medical record Durable Power of Ice Cream Chef: Copy in medical record Advance Directive Specifics Health Care Surrogate(s): Kaushal Sánchez (son) lives in [place]-medical and financial POA [phone] (cell) Megan Sánchez (daughter) lives in [place]-medical POA (cell) . Objective Vital Signs Date Time Temp Pulse Resp B/P (MAP) Pulse Ox O2 Delivery O2 Flow Rate FiO2 08/15/17 08:12 98 21 08/15/17 08:00 97.5 77 22 144/61 (88) 97 08/15/17 08:00 77 08/15/17 06:00 76 08/15/17 04:00 69 08/15/17 04:00 98.6 69 22 128/62 (84) 98 08/15/17 02:00 70 08/15/17 00:00 98.8 73 12 110/53 (72) 99 08/15/17 00:00 73 08/14/17 22:00 78 08/14/17 20:00 98.6 72 24 141/62 (88) 96 08/14/17 20:00 72 08/14/17 18:00 69 08/14/17 16:00 97.7 65 26 153/63 (93) 95 08/14/17 16:00 65 08/14/17 14:00 72 08/14/17 12:00 97.5 71 15 124/60 (81) 97 08/14/17 12:00 71 08/14/17 10:00 100 Nasal Cannula 1.00 08/14/17 10:00 70 Intake & Output 08/15/17 08/15/17 07:00 19:00 Intake Total 60 ml Output Total 450 ml Balance -390 ml Intake Oral 60 ml Output Urine Total 450 ml Physical Exam CONSTITUTIONAL/GENERAL: This is an elderly, obese patient, in no apparent distress. TUBES/LINES/DRAINS: PIV, Cardoso SKIN: No jaundice, rashes, or lesions. Left hand with serosanguineous drainage on medial surface, dressed CDI. Skin temperature appropriate. Not diaphoretic. HEAD: Atraumatic. Normocephalic. EYES: Pupils equal and round and reactive. Extraocular motions intact. No scleral icterus. No injection or drainage. Fundi not examined. ENT: Hearing grossly normal. Nose without bleeding or purulent drainage. Throat without visible erythema, exudates, masses, or lesions. NECK: Trachea midline. Supple, nontender. No palpable thyroid enlargement or nodularity. CARDIOVASCULAR: Regular rate and rhythm without murmurs, gallops, or rubs. No JVD. Peripheral pulses symmetric. RESPIRATORY/CHEST: Symmetric, unlabored respirations. Clear to auscultation. Breath sounds equal bilaterally. No wheezes, rales, or rhonchi. GASTROINTESTINAL: Abdomen soft, non-tender, nondistended. No hepato-splenomegaly , or palpable masses. No guarding. Bowel sounds present. GENITOURINARY: Without palpable bladder distension. Cardoso catheter in place. MUSCULOSKELETAL: Extremities without clubbing or cyanosis. Left upper extremity with 2+ edema. No joint tenderness or effusion noted. No calf tenderness. No mottling or clubbing. Left hemiparesis NEUROLOGICAL: Arousable to verbal stimuli, more alert today, appears more oriented, still with expressive aphasia and appears to have difficulty following a train of thought but answers simple questions intermittently. PSYCHIATRIC: No obvious anxiety/depression. no apparent hallucinations or other psychotic thought process. . Diagnostic Tests Laboratory Laboratory Tests Test 08/13/17 15:00 08/13/17 15:22 08/13/17 16:16 08/13/17 19:19 White Blood Count 16.8 TH/MM3 (4.0-11.0) Red Blood Count 4.36 MIL/MM3 (4.00-5.30) Hemoglobin 12.4 GM/DL (11.6-15.3) Hematocrit 39.3 % (35.0-46.0) Mean Corpuscular Volume 90.3 FL (80.0-100.0) Mean Corpuscular Hemoglobin 28.5 PG (27.0-34.0) Mean Corpuscular Hemoglobin Concent 31.5 % (32.0-36.0) Red Cell Distribution Width 14.2 % (11.6-17.2) Platelet Count 261 TH/MM3 (150-450) Mean Platelet Volume 9.1 FL (7.0-11.0) Neutrophils (%) (Auto) 82.0 % (16.0-70.0) Lymphocytes (%) (Auto) 10.1 % (9.0-44.0) Monocytes (%) (Auto) 7.2 % (0.0-8.0) Eosinophils (%) (Auto) 0.1 % (0.0-4.0) Basophils (%) (Auto) 0.6 % (0.0-2.0) Neutrophils # (Auto) 13.8 TH/MM3 (1.8-7.7) Lymphocytes # (Auto) 1.7 TH/MM3 (1.0-4.8) Monocytes # (Auto) 1.2 TH/MM3 (0-0.9) Eosinophils # (Auto) 0.0 TH/MM3 (0-0.4) Basophils # (Auto) 0.1 TH/MM3 (0-0.2) CBC Comment DIFF FINAL Differential Comment Prothrombin Time 11.4 SEC (9.8-11.6) Prothromb Time International Ratio 1.1 RATIO Activated Partial Thromboplast Time 24.4 SEC (24.3-30.1) Blood Urea Nitrogen 44 MG/DL (7-18) Creatinine 1.47 MG/DL (0.50-1.00) Random Glucose 354 MG/DL (74-106) Total Protein 7.0 GM/DL (6.4-8.2) Albumin 2.3 GM/DL (3.4-5.0) Calcium Level 8.1 MG/DL (8.5-10.1) Phosphorus Level 2.9 MG/DL (2.5-4.9) Magnesium Level 2.4 MG/DL (1.5-2.5) Alkaline Phosphatase 99 U/L (45-117) Aspartate Amino Transf (AST/SGOT) 36 U/L (15-37) Alanine Aminotransferase (ALT/SGPT) 20 U/L (10-53) Total Bilirubin 0.4 MG/DL (0.2-1.0) Sodium Level 159 MEQ/L (136-145) Potassium Level 5.1 MEQ/L (3.5-5.1) Chloride Level 125 MEQ/L (98-107) Carbon Dioxide Level 26.1 MEQ/L (21.0-32.0) Anion Gap 8 MEQ/L (5-15) Estimat Glomerular Filtration Rate 34 ML/MIN (>89) Total Creatine Kinase 131 U/L (26-192) Creatine Kinase MB LESS THAN 0.5 NG/ML Troponin I LESS THAN 0.02 NG/ML Lactic Acid Level 2.5 mmol/L (0.4-2.0) 0.4 mmol/L (0.4-2.0) Urine Color YELLOW (YELLW/STRAW) Urine Turbidity HAZY (CLEAR) Urine pH 5.0 (5.0-8.5) Urine Specific [place] 1.013 (1.002-1.035) Urine Protein TRACE mg/dL (NEG-TRACE) Urine Glucose (UA) 150 mg/dL (NEG) Urine Ketones NEG mg/dL (NEG) Urine Occult Blood SMALL (NEG) Urine Nitrite POS (NEG) Urine Bilirubin NEG (NEG) Urine Urobilinogen LESS THAN 2.0 MG/DL (LESS Urine Leukocyte Esterase LARGE (NEG) Urine RBC 9 /hpf (0-3) Urine WBC /hpf (0-5) Urine WBC Clumps MANY (NONE) Urine Squamous Epithelial Cells 1 /hpf (0-5) Urine Bacteria MOD /hpf (NONE) Urine Hyaline Casts 17 /lpf (RARE) Urine Mucus FEW /lpf (OCC) Microscopic Urinalysis Comment CATH-CULTURE IND Test 08/13/17 20:50 08/13/17 22:19 08/14/17 11:50 08/15/17 00:24 Nasal Screen MRSA (PCR) MRSA NOT DETECTED (NOT Blood Urea Nitrogen 54 MG/DL (7-18) 45 MG/DL (7-18) 40 MG/DL (7-18) Creatinine 1.58 MG/DL (0.50-1.00) 1.13 MG/DL (0.50-1.00) 1.04 MG/DL (0.50-1.00) Random Glucose 424 MG/DL (74-106) 148 MG/DL (74-106) 225 MG/DL (74-106) Calcium Level 8.5 MG/DL (8.5-10.1) 8.6 MG/DL (8.5-10.1) 8.0 MG/DL (8.5-10.1) Sodium Level 159 MEQ/L (136-145) 155 MEQ/L (136-145) 153 MEQ/L (136-145) Potassium Level 4.2 MEQ/L (3.5-5.1) 4.0 MEQ/L (3.5-5.1) 4.0 MEQ/L (3.5-5.1) Chloride Level 124 MEQ/L (98-107) 119 MEQ/L (98-107) 118 MEQ/L (98-107) Carbon Dioxide Level 27.4 MEQ/L (21.0-32.0) 28.6 MEQ/L (21.0-32.0) 30.0 MEQ/L (21.0-32.0) Anion Gap 8 MEQ/L (5-15) 7 MEQ/L (5-15) 5 MEQ/L (5-15) Estimat Glomerular Filtration Rate 31 ML/MIN (>89) 46 ML/MIN (>89) 50 ML/MIN (>89) White Blood Count 17.8 TH/MM3 (4.0-11.0) Red Blood Count 4.28 MIL/MM3 (4.00-5.30) Hemoglobin 12.1 GM/DL (11.6-15.3) Hematocrit 38.5 % (35.0-46.0) Mean Corpuscular Volume 89.9 FL (80.0-100.0) Mean Corpuscular Hemoglobin 28.2 PG (27.0-34.0) Mean Corpuscular Hemoglobin Concent 31.3 % (32.0-36.0) Red Cell Distribution Width 13.9 % (11.6-17.2) Platelet Count 234 TH/MM3 (150-450) Mean Platelet Volume 8.8 FL (7.0-11.0) Neutrophils (%) (Auto) 76.5 % (16.0-70.0) Lymphocytes (%) (Auto) 16.9 % (9.0-44.0) Monocytes (%) (Auto) 5.5 % (0.0-8.0) Eosinophils (%) (Auto) 0.9 % (0.0-4.0) Basophils (%) (Auto) 0.2 % (0.0-2.0) Neutrophils # (Auto) 13.6 TH/MM3 (1.8-7.7) Lymphocytes # (Auto) 3.0 TH/MM3 (1.0-4.8) Monocytes # (Auto) 1.0 TH/MM3 (0-0.9) Eosinophils # (Auto) 0.2 TH/MM3 (0-0.4) Basophils # (Auto) 0.0 TH/MM3 (0-0.2) CBC Comment DIFF FINAL Differential Comment Test 08/15/17 04:50 White Blood Count 13.6 TH/MM3 (4.0-11.0) Red Blood Count 4.20 MIL/MM3 (4.00-5.30) Hemoglobin 11.9 GM/DL (11.6-15.3) Hematocrit 37.2 % (35.0-46.0) Mean Corpuscular Volume 88.6 FL (80.0-100.0) Mean Corpuscular Hemoglobin 28.4 PG (27.0-34.0) Mean Corpuscular Hemoglobin Concent 32.0 % (32.0-36.0) Red Cell Distribution Width 13.7 % (11.6-17.2) Platelet Count 226 TH/MM3 (150-450) Mean Platelet Volume 9.5 FL (7.0-11.0) Neutrophils (%) (Auto) 71.7 % (16.0-70.0) Lymphocytes (%) (Auto) 22.0 % (9.0-44.0) Monocytes (%) (Auto) 4.9 % (0.0-8.0) Eosinophils (%) (Auto) 1.0 % (0.0-4.0) Basophils (%) (Auto) 0.4 % (0.0-2.0) Neutrophils # (Auto) 9.7 TH/MM3 (1.8-7.7) Lymphocytes # (Auto) 3.0 TH/MM3 (1.0-4.8) Monocytes # (Auto) 0.7 TH/MM3 (0-0.9) Eosinophils # (Auto) 0.1 TH/MM3 (0-0.4) Basophils # (Auto) 0.1 TH/MM3 (0-0.2) CBC Comment DIFF FINAL Differential Comment Blood Urea Nitrogen 37 MG/DL (7-18) Creatinine 1.06 MG/DL (0.50-1.00) Random Glucose 266 MG/DL (74-106) Calcium Level 8.3 MG/DL (8.5-10.1) Sodium Level 151 MEQ/L (136-145) Potassium Level 4.1 MEQ/L (3.5-5.1) Chloride Level 114 MEQ/L (98-107) Carbon Dioxide Level 28.7 MEQ/L (21.0-32.0) Anion Gap 8 MEQ/L (5-15) Estimat Glomerular Filtration Rate 49 ML/MIN (>89) . Result Diagram: 08/15/17 0450 08/15/17 0450 Microbiology Microbiology Date/Time Source Procedure Growth Status 08/13/17 15:20 Blood Peripheral Aerobic Blood Culture - Preliminary NO GROWTH IN 1 DAY Resulted 08/13/17 15:20 Blood Peripheral Anaerobic Blood Culture - Preliminary NO GROWTH IN 1 DAY Resulted 08/13/17 15:15 Blood Peripheral Aerobic Blood Culture - Preliminary NO GROWTH IN 1 DAY Resulted 08/13/17 15:15 Blood Peripheral Anaerobic Blood Culture - Preliminary NO GROWTH IN 1 DAY Resulted 08/13/17 16:16 Nasal Aspirate Influenza Types A,B Antigen (KRARIE) - Final NEGATIVE FOR FLU A AND B ANTIGEN.... Complete 08/13/17 16:16 Urine Catheterized Urine Urine Culture - Preliminary Gram Negative Jr Resulted Imaging Last Impressions Chest X-Ray 08/13/17 1513 Signed Impressions: Service Date/Time: Sunday, August 13, 2017 15:24 - CONCLUSION: No acute disease. There is no evidence of pneumonia. Elio Bauman MD Head CT 08/13/17 0000 Signed Impressions: Service Date/Time: Sunday, August 13, 2017 15:36 - CONCLUSION: 1. No acute hemorrhage or mass effect. 2. Encephalomalacia involving the right frontal and parietal lobes. 3. Moderate atrophy and chronic small vessel ischemic changes. Elio Bauman MD Assessment and Plan Disease Oriented Problem List: (1) Dementia associated with other underlying disease without behavioral disturbance (2) Hypernatremia (3) Altered mental status (4) Hemiparesis affecting left side as late effect of cerebrovascular accident (5) Hemorrhagic cerebrovascular accident (CVA) (6) Atrial fibrillation (7) Obstructive sleep apnea Symptom Scale: (1) Fever (2) Altered mental status Pertinent Non-Medical Issues Psychosocial:Previously lived in [place] where she suffered the 2 hemorrhagic strokes and had been in rehabilitation at [facility] in [place], [place] but was subsequently discharged October 2015. She moved to [place] to be closer to her daughter and was admitted to [facility] for further rehabilitation. 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 Patient was previously a DNR . Spiritual: Soil Checker available . Legal: No issues noted. . Ethical issues impacting care: No issues noted. . Important Contacts * Jarod Briseno (daughter) lives in [place]-primary contact [phone] * Kaushal Sánchez (son) lives in [facility] POA [phone] (cell) * Megan Sánchez (daughter) lives in [facility] POA (cell) * . Prognosis Her prognosis is poor. She has chronic and worsening dysphasia lending to dehydration, frequent UTIs and the likelihood of pneumonia. She has suffered 2 hemorrhagic CVAs secondary to Coumadin administration for thromboembolic prophylaxis due to atrial fibrillation. She still has paroxysmal atrial fibrillation and is at risk for an ischemic stroke from that source. Given her poor oral intake it is likely that she will continue to have recurrent hospitalizations. Family states that this is not consistent with their goals or the patient's goals and have elected hospice with comfort care. . Code Status: No Code Plan PLAN: Legal decision maker: DPOA states joint or severally Kaushal Sánchez (son) lives in [facility] POA [phone] (cell) Megan Sánchez (daughter) lives in [place]-[facility] POA (cell) Goals: Comfort measures with hospice support. CODE STATUS: DNR SYMPTOMS: * Confusion: She shows slight improvement today, is more alert and can answer some questions with yes/no. Her daughter had previously noted that she answered yes to all questions, "are you cold? Yes. Are you hot? Yes" Likely multifactorial to include urinary tract infection, hypernatremia, dehydration, underlying effects of a previous CVA. She continues to receive IV rehydration with D5 W with 20 KCl at 50 mL per hour as well as Rocephin 1 g IV daily. She had at baseline, some noted cognitive dysfunction after her CVA, which has worsened recently per her family. Initial urinary culture shows gram-negative jr, will follow for culture and sensitivity. * Fever: She was seen 6 days prior to admission by [facility] service to be evaluated for low-grade fevers. Her presenting fever in the ED was 101. She has been afebrile since that time. Continue monitoring vital signs per orders. Tylenol for fever as needed. Urine and blood cultures pending. She is negative for influenza A and B. Palliative care will continue to follow the patient during hospital course as condition evolves, to assist patient/decision-maker with understanding of their medical conditions, weighing benefits/burdens of treatment options, for clarification of goals of treatment. Additionally will assist with any symptoms of palliative concern. . Time Spent Time Periods: 10:15-11:00 and 12:00-1:00. Total Floor Time (mins): 165 Face to Face Time (mins): 105 >50% Counseling/Coord of Care: Yes Attestation To help prompt me to consider important information that might be impacting today's encounter and assessment, information from prior notes written by myself or my colleagues may have been "brought forward" into today's note. My signature on this note, however, is an attestation that I personally performed the exam, history, and/or decision-making noted today, and, unless otherwise indicated, the interactions with patient, family, and staff as well as the review of records all occurred today. I also attest that the listed assessment and stated plan reflect my best clinical judgment today based on the combination of historical information, prior notes, and today's exam/ interactions. When time spent is documented, it refers only to time spent today by the signer, or if indicated, combined time spent today by collaborating physician/nurse practitioner. . Tati Bains Aug 15, 2017 9:45 am
--- NOTE | 2017-08-15 10:22 | HHI.FPPN ---
Subjective Remarks No acute events overnight. Vital signs unremarkable this morning. This morning patient is much more awake and is able to state her name and respond to questions appropriately. However she is not oriented to place or time but based on chart review, this may be patient's baseline. Patient does report being hungry this morning. Denies chest pain, SOB. Denies having any acute concerns. (Salome Cervantes MD, R3) Objective Vitals Vital Signs Date Time Temp Pulse Resp B/P (MAP) Pulse Ox O2 Delivery O2 Flow Rate FiO2 08/15/17 08:12 98 21 08/15/17 08:00 97.5 77 22 144/61 (88) 97 08/15/17 08:00 77 08/15/17 06:00 76 08/15/17 04:00 69 08/15/17 04:00 98.6 69 22 128/62 (84) 98 08/15/17 02:00 70 08/15/17 00:00 98.8 73 12 110/53 (72) 99 08/15/17 00:00 73 08/14/17 22:00 78 08/14/17 20:00 98.6 72 24 141/62 (88) 96 08/14/17 20:00 72 08/14/17 18:00 69 08/14/17 16:00 97.7 65 26 153/63 (93) 95 08/14/17 16:00 65 08/14/17 14:00 72 08/14/17 12:00 97.5 71 15 124/60 (81) 97 08/14/17 12:00 71 I/O 08/14/17 08/14/17 08/14/17 08/15/17 08/15/17 08/15/17 07:00 15:00 23:00 07:00 15:00 23:00 Intake Total 928.1 ml 1000 ml 1242 ml 60 ml Output Total 350 ml 400 ml 450 ml Balance 578.1 ml 1000 ml 842 ml -390 ml Intake Oral 0 ml 60 ml 60 ml IV Total 928.1 ml 1000 ml 1182 ml Output Urine Total 350 ml 400 ml 450 ml # Bowel Movements 0 0 (Salome Cervantes MD, R3) Result Diagram: 08/15/17 0450 08/15/17 0450 Objective Remarks GEN: Well-developed, well-nourished patient. No acute distress. Resting comfortably in bed but with good eye contact. CV: Regular rate and rhythm without obvious murmurs LUNGS: Clear to auscultation bilaterally. Normal respiratory effort. No wheezes , rales, rhonchi. GI: Nondistended EXT: No edema. No calf tenderness. Left upper extremity edematous NEURO/PSYCH: Awake, alert. Oriented to person but not place or time. (Salome Cervantes MD, R3) A/P Assessment and Plan 86 yo female with HX of hemorrhagic CVA x2, dementia, afib, seizures, and DM type 2. Admitted due to hyponatremia and acute metabolic encephalopathy Discharge Planning 2-4days pending improvement of hypernatremia and mental status. * will need SNF likely. Pt came from [facility]. PT consulted * sdw Dr. Whiting (Salome Cervantes MD, R3) Attending Attestation Medical rounds were performed with Dr Salome Cervantes, patient seen and examined, Agree with documentation, See Orders (Patrick Whiting MD) Problem List: (1) Acute metabolic encephalopathy ICD Codes: G93.41 - Metabolic encephalopathy Status: Acute Plan: Patient with a history of dementia but baseline neurological status appears to be patient oriented to self and is able to answer questions appropriately. On admission she had a reported GCS of 5 and a fever of 101 that has since resolved. Etiology likely multifactorial at this point as pt was found to have hypernatremia and UTI. (2) UTI (urinary tract infection) ICD Codes: N39.0 - Urinary tract infection, site not specified Status: Acute Plan: UA with positive nitrites. Vanc and zosyn give x1 in the ED. -Urine culture: Positive gram negative alon -continue Rocephin 1g (08/14- (3) Hypernatremia ICD Codes: E87.0 - Hyperosmolality and hypernatremia Status: Acute Plan: Presented due to hypernatremia found as an outpatient. Admission Na of 159. Slowly downtrending. -max goal of 7meq in 24hrs -serial BMPs (4) Sepsis ICD Codes: A41.9 - Sepsis, unspecified organism Status: Resolved Plan: Met sepsis criteria on admission with fever and leukocytosis. Source urine. --Lactic acid has improved --blood cultures negative x1 day --please see more detailed plan above. (5) Type 2 diabetes mellitus without complications ICD Codes: E11.9 - Type 2 diabetes mellitus without complications Status: Acute Plan: Takes 25 units of Lantus at home. Found to be hypoglycemic on admission. -Hyperglycemia worsened by D5 fluids -Started on insulin drip, weaned off to subq as patient is able to take food PO -Levemir 5units in a.m. and 10 units at night, to be titrated up as PO intake improves -low dose sliding scale (6) AILYN (acute kidney injury) ICD Codes: N17.9 - Acute kidney failure, unspecified Status: Resolved Plan: Baseline Cr around 1. Admission Cr 1.47. Continues to improve. (7) History of seizure ICD Codes: Z87.898 - Personal history of other specified conditions Status: Chronic Plan: Takes Keppra as home medication -Resume home keppra -keppra level pending (8) Atrial fibrillation ICD Codes: I48.91 - Unspecified atrial fibrillation Status: Acute Plan: Hx of Afib. Currently rate controlled. Not on anticoagulation due to hx of hemorrhagic CVA. Last event 2014 -continue home medications: carvedilol 25mg BID (9) Dementia ICD Codes: F03.90 - Unspecified dementia without behavioral disturbance Status: Chronic Plan: Hx of dementia but patient is able to communicate at baseline. (10) Nutrition, metabolism, and development symptoms ICD Codes: R63.8 - Other symptoms and signs concerning food and fluid intake Plan: Diet: Diabetic, pureed Fluids: D5W at 100 Electrolytes: See above DVT PPX: Heparin q12 GI PPX: not indicated at this time (Salome Cervantes MD, R3) Problem Qualifiers (1) Sepsis: Qualified Codes: A41.9 - Sepsis, unspecified organism Salome Cervantes MD, R3 Aug 15, 2017 10:22 Patrick Whiting MD Aug 16, 2017 14:08
[2017-08-15] MEDS ORDERED: POTASSIUM PHOSPHATE MONOBASIC 500 MG TAB PO/TUBE PRN (10:30)
[2017-08-15] MEDS ORDERED: POTASSIUM PHOSPHATE INJ 30 MMOL in SODIUM CHLOR 0.9% 250 ML INJ 250 ML IV PRN (10:30)
[2017-08-15] MEDS ORDERED: POTASSIUM PHOSPHATE MONOBASIC 500 MG TAB PO PRN (10:30)
[2017-08-15] MEDS ORDERED: POTASSIUM CHLOR 40 MEQ PREMIX 100 ML IV PRN ×2 (10:30)
[2017-08-15] MEDS ORDERED: MAGNESIUM SULFATE INJ 2 GM in SODIUM CHLORIDE 0.9% INJ 96 ML IV PRN (10:30)
[2017-08-15] MEDS ORDERED: POTASSIUM CHLOR 20 MEQ PREMIX 100 ML IV PRN ×2 (10:30)
[2017-08-15] MEDS ORDERED: SODIUM PHOSPHATE INJ 30 MMOL in SODIUM CHLOR 0.9% 250 ML INJ 240 ML IV PRN (10:30)
[2017-08-15] MEDS ORDERED: MAGNESIUM OXIDE 400 MG TAB PO PRN (10:30)
[2017-08-15] MEDS ORDERED: POTASSIUM CHLORIDE 25 MEQ EFFERVESCENT TAB PO PRN (10:30)
[2017-08-15] MEDS ORDERED: MAGNESIUM SULFATE INJ 4 GM in SODIUM CHLORIDE 0.9% INJ 92 ML IV PRN (10:30)
[2017-08-15] MEDS: DEXTROSE 5% IN WATE 1000ML INJ 1,000 ML IV SCH ×2 (10:50→21:22)
[2017-08-15] MEDS: cefTRIAXone INJ 1,000 MG in SODIUM CHLORIDE 0.9% INJ 100 ML IV SCH (13:05)
[2017-08-15] MEDS ORDERED: PIPERACIL-TAZO 3.375 GM PREMIX 50 ML IV SCH (15:00)
--- NOTE | 2017-08-15 15:28 | PD.ID.CON ---
History of Present Illness Service ID Consult Requested By Dr Shelia De Luna Reason for Consult ESBL in [facility] Primary Care Physician Non-Staff Diagnoses: History of Present Illness Ms. Sánchez is an 86 year old female with a history of dementia, atrial fibrillation who was brought to the ED from her place of residence on 08/13 due to sodium in the 160s. On arrival GCS was 5 and had a fever of 101. On admission hypornatremia with Na 159, Creatinine 1.47, Glucose 354, Lactic Acid 2.5. leukocytosis up to 16.8K She was gound to have very abnormal UA with innumerable WBC and her urine culture is growing ESBL+ E.coli S to Ertapnem and another 2nd GNB Review of Systems ROS Limitations: Altered Mental Status Past Family Social History Allergies: Coded Allergies: erythromycin base (Unverified Allergy, Intermediate, hives, 04/01/17) metformin (Unverified Allergy, Intermediate, hives, 04/01/17) shellfish derived (Unverified Allergy, Intermediate, unknown, 04/01/17) diflunisal (Unverified Adverse Reaction, Intermediate, spacy, 04/01/17) doxycycline (Unverified Adverse Reaction, Intermediate, nausea/vomiting, ) ketorolac (Unverified Adverse Reaction, Intermediate, hallucinations, 04/01) meperidine (Unverified Adverse Reaction, Intermediate, itching, 04/01/17) pioglitazone (Unverified Adverse Reaction, Intermediate, chest pain, ) rosiglitazone (Unverified Adverse Reaction, Intermediate, edema, 04/01/17) sitagliptin (Unverified Adverse Reaction, Unknown, unknown, 04/01/17) Past Medical History Atrial fibrillation CHF Diabetes Dementia Seizure Past Surgical History Unable to obtain Active Ordered Medications Medications where reviewed in EMR Antibiotics Include: Zosyn Family History Unable to obtain Social History Unable to obtain Physical Exam Vital Signs Vital Signs Date Time Temp Pulse Resp B/P (MAP) Pulse Ox O2 Delivery O2 Flow Rate FiO2 08/15/17 14:00 68 08/15/17 12:00 74 08/15/17 12:00 97.7 74 24 116/58 (77) 98 08/15/17 10:00 77 08/15/17 08:12 98 21 08/15/17 08:00 97.5 77 22 144/61 (88) 97 08/15/17 08:00 77 08/15/17 06:00 76 08/15/17 04:00 69 08/15/17 04:00 98.6 69 22 128/62 (84) 98 08/15/17 02:00 70 08/15/17 00:00 98.8 73 12 110/53 (72) 99 08/15/17 00:00 73 08/14/17 22:00 78 08/14/17 20:00 98.6 72 24 141/62 (88) 96 08/14/17 20:00 72 08/14/17 18:00 69 08/14/17 16:00 97.7 65 26 153/63 (93) 95 08/14/17 16:00 65 Physical Exam CONSTITUTIONAL/GENERAL: This is an obese patient, in no apparent distress. TUBES/LINES/DRAINS: SKIN: No jaundice, rashes, or lesions. Skin temperature appropriate. Not diaphoretic. HEAD: Atraumatic. Normocephalic. EYES: Pupils equal and round and reactive. Extraocular motions intact. No scleral icterus. No injection or drainage. Fundi not examined. ENT: Hearing grossly normal. Nose without bleeding or purulent drainage. Oral mucosae without visible erythema, exudates, masses, or lesions. NECK: Trachea midline. Supple, nontender. No palpable thyroid enlargement or nodularity. CARDIOVASCULAR: Regular rate and rhythm without murmurs, gallops, or rubs. No JVD. Peripheral pulses symmetric. RESPIRATORY/CHEST: Symmetric, unlabored respirations. Clear to auscultation. Breath sounds equal bilaterally. No wheezes, rales, or rhonchi. GASTROINTESTINAL: Abdomen soft, non-tender, nondistended. No hepato-splenomegaly , or palpable masses. No guarding. Bowel sounds present. GENITOURINARY: Without palpable bladder distension. Cardoso catheter in place with cloudy urine MUSCULOSKELETAL: Extremities without clubbing, cyanosis, + Prominent LUE non pitting edema. No joint tenderness or effusion noted. No calf tenderness. No mottling or clubbing. LYMPHATICS: No palpable cervical or supraclavicular adenopathy. NEUROLOGICAL: Awake and alert. Motor and sensory grossly within normal limits. Follows commands. Confused, oriented to self only (seem to be baseline). Moves all extremities. PSYCHIATRIC: No obvious anxiety/depression. no apparent hallucinations or other psychotic thought process. Laboratory Laboratory Tests Test 08/15/17 00:24 08/15/17 04:50 Blood Urea Nitrogen 40 37 Creatinine 1.04 1.06 Random Glucose 225 266 Calcium Level 8.0 8.3 Sodium Level 153 151 Potassium Level 4.0 4.1 Chloride Level 118 114 Carbon Dioxide Level 30.0 28.7 Anion Gap 5 8 Estimat Glomerular Filtration Rate 50 49 White Blood Count 13.6 Red Blood Count 4.20 Hemoglobin 11.9 Hematocrit 37.2 Mean Corpuscular Volume 88.6 Mean Corpuscular Hemoglobin 28.4 Mean Corpuscular Hemoglobin Concent 32.0 Red Cell Distribution Width 13.7 Platelet Count 226 Mean Platelet Volume 9.5 Neutrophils (%) (Auto) 71.7 Lymphocytes (%) (Auto) 22.0 Monocytes (%) (Auto) 4.9 Eosinophils (%) (Auto) 1.0 Basophils (%) (Auto) 0.4 Neutrophils # (Auto) 9.7 Lymphocytes # (Auto) 3.0 Monocytes # (Auto) 0.7 Eosinophils # (Auto) 0.1 Basophils # (Auto) 0.1 CBC Comment DIFF FINAL Differential Comment Date/Time Source Procedure Growth Status 08/13/17 15:20 Blood Peripheral Aerobic Blood Culture - Preliminary NO GROWTH IN 2 DAYS Resulted 08/13/17 15:20 Blood Peripheral Anaerobic Blood Culture - Preliminary NO GROWTH IN 2 DAYS Resulted 08/13/17 16:16 Nasal Aspirate Influenza Types A,B Antigen (KARRIE) - Final NEGATIVE FOR FLU A AND B ANTIGEN.... Complete 08/13/17 16:16 Urine Catheterized Urine Urine Culture - Preliminary Escherichia Coli Esbl Positive Gram Negative Jr Resulted Result Diagram: 08/15/17 0450 08/15/17 0450 Imaging Last Impressions Chest X-Ray 08/13/17 1513 Signed Impressions: Service Date/Time: Sunday, August 13, 2017 15:24 - CONCLUSION: No acute disease. There is no evidence of pneumonia. Elio Bauman MD Head CT 08/13/17 0000 Signed Impressions: Service Date/Time: Sunday, August 13, 2017 15:36 - CONCLUSION: 1. No acute hemorrhage or mass effect. 2. Encephalomalacia involving the right frontal and parietal lobes. 3. Moderate atrophy and chronic small vessel ischemic changes. Eilo Bauman MD Assessment and Plan Assessment and Plan UTI 2/2 ESBL+ E.coli also 2nd GNB Sepsis (lactic acidoseis, leukocytosis, MS change and established infection) Clinically improved change zosyn to Meropenem further abx adjustement per final clx ID/S of 2nd GNB US Rosalba Herring MD Aug 15, 2017 15:28
[2017-08-15] MEDS ORDERED: MISCELLANEOUS PHARMACY INFORMATION XX PRN (15:30)
[2017-08-15] MEDS ORDERED: ASP: Documented ESBL, MDR A baumannii or P. aeruginosa PRN (15:30)
[2017-08-15] MEDS: MEROPENEM INJ 1,000 MG in SODIUM CHLORIDE 0.9% INJ 100 ML IV SCH (17:04)
[2017-08-15] MEDS: ATORVASTATIN 40 MG TAB PO SCH (20:51)
[2017-08-15] MEDS ORDERED: INSULIN DETEMIR 100 UNITS/ML VIAL SQ SCH (21:00)
--- NOTE | 2017-08-15 21:46 | RADRPT ---
EXAM DATE/TIME: 08/15/2017 19:04 [place] COMPARISON: No previous studies available for comparison. INDICATIONS : Left arm swelling. MEDICAL HISTORY : Hypercholesterolemia. Congestive heart failure. Gastroesophageal reflux disease. Dementia. Cerebrovas cular accident. Seizures. Afib. Hypertension. Diabetes. Sleep apnea. SURGICAL HISTORY : Unable to obtain. ENCOUNTER: Initial ACUITY: 1 day PAIN SCORE: 2/10 LOCATION: Left arm. FINDINGS: There is spontaneous flow documented in the brachial, basilic, cephalic, axillary, and subclavian vei ns. The vessels are compressible and augmentation response is documented. No filling defects are se en. The flow is phasic with respiration. Direction of flow in the jugular vein is caudal. CONCLUSION: No venous thrombosis of the left upper extremity. Edil Castellon MD on August 15, 2017 at 21:44 Board Certified Radiologist. This report was verified electronically.
[2017-08-15 23:35] LABS: BICARBONATE 28.7 MEQ/L (21.0-32.0); CALCIUM 7.9 MG/DL (8.5-10.1); CREATININE 1.14 MG/DL (0.50-1.00)
[2017-08-16] VITALS (13 sets, daily range): BP systolic 99–130; BP diastolic 51–58; PULSE 68–78; RESP 15–23; TEMP 98.3–99; O2SAT 95–100
[2017-08-16] MEDS: CHLORHEXIDINE GLUCONATE 2 % 1 PACK (2 CLOTHS)(taper/protocol) TOPICAL SCH (04:00)
[2017-08-16] MEDS: MEROPENEM INJ 1,000 MG in SODIUM CHLORIDE 0.9% INJ 100 ML IV SCH (05:29)
[2017-08-16] MEDS: LISINOPRIL 5 MG TAB PO SCH (08:04)
[2017-08-16] MEDS: levETIRAcetam 250 MG TAB PO SCH ×2 (08:04→20:19)
[2017-08-16] MEDS: HEPARIN SODIUM - SQ 10,000 UNITS/ML VIAL SQ SCH ×2 (08:05→20:19)
[2017-08-16] MEDS: INSULIN ASPART SUPPLEMENTAL SCALE SQ SCH ×4 (08:05→20:20)
[2017-08-16] MEDS: INSULIN DETEMIR 100 UNITS/ML VIAL SQ SCH ×2 (08:06→20:20)
[2017-08-16] MEDS: SODIUM CHLORIDE 0.9% FLUSH 10 ML FLUSH IV FLUSH SCH ×2 (08:08→20:21)
[2017-08-16] MEDS: CARVEDILOL 12.5 MG TAB PO SCH ×2 (09:00→20:20)
--- NOTE | 2017-08-16 10:38 | HHI.FPPN ---
Subjective Remarks No acute events overnight. Vital signs significant for low BP. Patient less awake and responsive this morning but is able to state her first name only. (Salome Cervantes MD, R3) Objective Vitals Vital Signs Date Time Temp Pulse Resp B/P (MAP) Pulse Ox O2 Delivery O2 Flow Rate FiO2 08/16/17 09:00 75 23 103/51 (68) 100 08/16/17 08:01 70 19 118/55 (76) 100 08/16/17 08:00 68 08/16/17 08:00 68 20 99 08/16/17 06:00 69 08/16/17 04:00 73 15 108/53 (71) 100 08/16/17 04:00 73 08/16/17 02:00 71 08/16/17 00:00 73 08/16/17 00:00 99.0 73 21 99/51 (67) 97 08/15/17 22:00 79 08/15/17 20:00 98.9 75 24 116/56 (76) 95 08/15/17 20:00 75 08/15/17 18:00 74 08/15/17 16:00 98.4 71 19 123/58 (79) 97 08/15/17 16:00 71 08/15/17 14:00 68 08/15/17 12:00 74 08/15/17 12:00 97.7 74 24 116/58 (77) 98 I/O 08/15/17 08/15/17 08/15/17 08/16/17 08/16/17 08/16/17 07:00 15:00 23:00 07:00 15:00 23:00 Intake Total 60 ml 1100 ml 1888 ml 1044 ml Output Total 450 ml 450 ml 950 ml Balance -390 ml 1100 ml 1438 ml 94 ml Intake Oral 60 ml 120 ml 120 ml IV Total 1100 ml 1768 ml 924 ml Output Urine Total 450 ml 450 ml 950 ml # Bowel Movements 0 0 (Salome Cervantes MD, R3) Result Diagram: 08/15/17 0450 08/15/17 2254 Imaging Last Impressions Upper Extremity Ultrasound 08/15/17 0000 Signed Impressions: Service Date/Time: August 19:04 - CONCLUSION: No venous thrombosis of the left upper extremity. Edil Castellon MD Chest X-Ray 08/13/17 1513 Signed Impressions: Service Date/Time: Sunday, August 13, 2017 15:24 - CONCLUSION: No acute disease. There is no evidence of pneumonia. Elio Bauman MD Head CT 08/13/17 0000 Signed Impressions: Service Date/Time: Sunday, August 13, 2017 15:36 - CONCLUSION: 1. No acute hemorrhage or mass effect. 2. Encephalomalacia involving the right frontal and parietal lobes. 3. Moderate atrophy and chronic small vessel ischemic changes. Elio Bauman MD Objective Remarks GEN: Well-developed, well-nourished patient. No acute distress. Resting comfortably in bed SKIN: Small sacral ulcer present. No pus or signs of infection. CV: Regular rate and rhythm without obvious murmurs LUNGS: Clear to auscultation bilaterally. Normal respiratory effort. No wheezes , rales, rhonchi. GI: Soft, nondistended, nontender. EXT: No edema. No calf tenderness. Continued Left upper extremity edema, unchanged NEURO/PSYCH: Awake, alert but less so than yesterday. Oriented to first name but unable to state last name. (Salome Cervantes MD, R3) A/P Assessment and Plan 86 yo female with HX of hemorrhagic CVA x2, dementia, afib, seizures, and DM type 2. Admitted due to hyponatremia and acute metabolic encephalopathy Discharge Planning 1-3days pending improvement of hypernatremia and mental status. * Pallative Care: Will be discharged under hospice once medically stable (Going to [facility]) sdw Dr. Whiting (Salome Cervantes MD, R3) Attending Attestation Medical rounds were performed with Dr Salome Cervantes, patient seen and examined, Agree with documentation, See Orders (Patrick Whiting MD) Problem List: (1) Acute metabolic encephalopathy ICD Codes: G93.41 - Metabolic encephalopathy Status: Acute Plan: Patient with a history of dementia but baseline neurological status appears to be patient oriented to self and is able to answer questions appropriately. On admission she had a reported GCS of 5 and a fever of 101 that has since resolved. Etiology likely multifactorial at this point as pt was found to have hypernatremia and UTI. (2) UTI (urinary tract infection) ICD Codes: N39.0 - Urinary tract infection, site not specified Status: Acute Plan: Urine culture: ESBL ID consulted: appreciate recommendations. * Meropenem (- * US of LUE: negative (3) Hypernatremia ICD Codes: E87.0 - Hyperosmolality and hypernatremia Status: Acute Plan: Presented due to hypernatremia found as an outpatient. Admission Na of 159. Slowly downtrending. Will continue to be at risk for dehydration due to poor mental status and the lack of ability to hydrate herself. -serial BMPs -continue fluids (4) Sepsis ICD Codes: A41.9 - Sepsis, unspecified organism Status: Resolved Plan: Met sepsis criteria on admission with fever and leukocytosis. Source urine. --Lactic acid has improved --blood cultures negative x3 days --please see more detailed plan above. (5) Pressure ulcer ICD Codes: L89.90 - Pressure ulcer of unspecified site, unspecified stage Plan: Midline sacral ulcer without puss or signs of active infection -wound care consulted (6) Atrial fibrillation ICD Codes: I48.91 - Unspecified atrial fibrillation Status: Acute Plan: Hx of Afib. Currently rate controlled. Not on anticoagulation due to hx of hemorrhagic CVA. Last event 2014 -BP has been low, decrease/hold continue home medications: * Decreased carvedilol to 12.5mg BID. Hold if SBP<110 and/or DBP <60 (7) Type 2 diabetes mellitus without complications ICD Codes: E11.9 - Type 2 diabetes mellitus without complications Status: Acute Plan: Takes 25 units of Lantus at home. Found to be hyperglycemic on admission. Initially started on insulin drip, weaned off to subq as patient is able to take food PO -Levemir 5units in a.m. and 10 units at night, to be titrated up as PO intake improves -low dose sliding scale (8) AILYN (acute kidney injury) ICD Codes: N17.9 - Acute kidney failure, unspecified Status: Resolved Plan: Baseline Cr around 1. Admission Cr 1.47. Resolved (9) History of seizure ICD Codes: Z87.898 - Personal history of other specified conditions Status: Chronic Plan: Takes Keppra as home medication -Resume home keppra -keppra level pending (10) Dementia ICD Codes: F03.90 - Unspecified dementia without behavioral disturbance Status: Chronic Plan: Hx of dementia but patient is able to communicate at baseline. (11) Nutrition, metabolism, and development symptoms ICD Codes: R63.8 - Other symptoms and signs concerning food and fluid intake Plan: Diet: Diabetic, pureed Fluids: 1/2 NS at 75mls/hr Electrolytes: See above DVT PPX: Heparin q12 GI PPX: not indicated at this time (Salome Cervatnes MD, R3) Problem Qualifiers (1) Sepsis: Qualified Codes: A41.9 - Sepsis, unspecified organism Salome Cervantes MD, R3 Aug 16, 2017 10:38 Patrick Whiting MD Aug 16, 2017 14:12
[2017-08-16] MEDS: SODIUM CHLOR 0.45% 1000 ML INJ 1,000 ML IV SCH ×2 (10:51→23:27)
--- NOTE | 2017-08-16 14:27 | PD.WCN.NOT ---
Wound Consult Description: Received consult for pressure ulcer to sacrum from Doctor Salome Cervantes MD R3 Communicated with: SILVERIO Bradshaw and Doctor Billy Recommendation: 1.Please cleanse wound to sacrum with normal saline or wound cleanser, pat dry. Apply skin prep to periwound before applying Optifoam gentle border 4x4, available through misogram only. Change every 3 days or PRN if saturated or dislodged. 2. Apply skin prep to L heel and leave open to air BID. 3. Turn patient every 2 hours or PRN for comfort and offloading of pressure from sacral and coccygeal terra prominence. Additional Information: Patient seen on 5th floor [facility] for evaluation sacral wound around 1400, recommendations noted above. Patient was turned with maximum assist to L side with the assistance of Leeann SAWYER [facility] and contract technical writer. Patient noted with pressure injury to sacrum that is stage 3. Wound bed presents with ~20% pink tissue, 20% dark red tissue and ~60% granulated tissue. Wound drainage is minimal and sero- sanguinous without odor.Wound measurwas 2.1cmx 1 cm x ~0.1cm.Wound margins are even and well defined. Wound has an oval shape. Periwound is unremarkable. Patient has Cardoso catheter in place. Cleansed wound with normal saline and patted dry. Skin prep was then applied to periwound before placing bordered gauze over wound bed. L heel was assessed with resolving Deep tissue injury measuring ~2cm x ~2cm. Periwound is noted with hyperkeratotic peeling skin.Heel raiser boot is on. Left Deep tissue injury open to air Nola Hull [facility] Aug 16, 2017 14:26
[2017-08-16] MEDS ORDERED: MISCELLANEOUS PHARMACY INFORMATION XX PRN (16:15)
[2017-08-16] MEDS ORDERED: ASP: Documented ESBL, MDR A baumannii or P. aeruginosa PRN (16:15)
[2017-08-16] MEDS: ERTAPENEM INJ 1,000 MG in SODIUM CHLORIDE 0.9% INJ 100 ML IV SCH (18:26)
[2017-08-16] MEDS: ATORVASTATIN 40 MG TAB PO SCH (20:20)
[2017-08-17] VITALS (7 sets, daily range): BP systolic 99–134; BP diastolic 49–61; PULSE 58–70; RESP 12–27; TEMP 95.2–98.2; O2SAT 94–100
[2017-08-17] MEDS: CHLORHEXIDINE GLUCONATE 2 % 1 PACK (2 CLOTHS)(taper/protocol) TOPICAL SCH (04:00)
[2017-08-17] MEDS: CARVEDILOL 12.5 MG TAB PO SCH (09:00)
[2017-08-17] MEDS: SODIUM CHLORIDE 0.9% FLUSH 10 ML FLUSH IV FLUSH SCH (09:36)
[2017-08-17] MEDS: LISINOPRIL 5 MG TAB PO SCH (09:36)
[2017-08-17] MEDS: levETIRAcetam 250 MG TAB PO SCH ×2 (09:36→21:00)
[2017-08-17] MEDS: INSULIN ASPART SUPPLEMENTAL SCALE SQ SCH ×4 (09:37→21:01)
[2017-08-17] MEDS: HEPARIN SODIUM - SQ 10,000 UNITS/ML VIAL SQ SCH ×2 (09:37→21:02)
[2017-08-17] MEDS: INSULIN DETEMIR 100 UNITS/ML VIAL SQ SCH ×2 (09:38→21:01)
--- NOTE | 2017-08-17 09:56 | HHI.FPPN ---
Subjective Remarks No acute events overnight. Vital signs unremarkable except for continued low BP. This morning patient is oriented to her first name and much more awake. However she is unable to state her last name. Denies having any pain but states that she is hungry and ready for breakfast. Objective Vitals Vital Signs Date Time Temp Pulse Resp B/P (MAP) Pulse Ox O2 Delivery O2 Flow Rate FiO2 08/17/17 04:00 97.9 61 20 119/56 (77) 100 08/17/17 04:00 61 08/17/17 00:00 98.2 64 16 99/49 (66) 100 08/17/17 00:00 64 08/16/17 20:00 77 08/16/17 20:00 98.3 77 20 130/58 (82) 100 08/16/17 16:00 75 08/16/17 16:00 75 23 105/54 (71) 95 08/16/17 14:00 73 08/16/17 12:00 98.3 08/16/17 12:00 72 23 107/53 (71) 08/16/17 12:00 72 08/16/17 11:00 75 08/16/17 10:00 78 I/O 08/16/17 08/16/17 08/16/17 08/17/17 08/17/17 08/17/17 07:00 15:00 23:00 07:00 15:00 23:00 Intake Total 1044 ml 420 ml 1600.2 ml Output Total 950 ml 850 ml 200 ml Balance 94 ml -430 ml 1400.2 ml Intake Oral 120 ml 320 ml 120 ml IV Total 924 ml 100 ml 1480.2 ml Output Urine Total 950 ml 850 ml 200 ml # Voids 1 # Bowel Movements 0 1 Result Diagram: 08/15/17 0450 08/15/17 2254 Objective Remarks GEN: Well-developed, well-nourished patient. No acute distress. Resting comfortably in bed CV: Regular rate and rhythm without obvious murmurs LUNGS: Anterior lung sounds clear to auscultation bilaterally. Normal respiratory effort. No wheezes, rales, rhonchi. GI: Nondistended NEURO/PSYCH: Awake, and more alert today. Oriented to first name only. A/P Assessment and Plan 86 yo female with HX of hemorrhagic CVA x2, dementia, afib, seizures, and DM type 2. Admitted due to hyponatremia and acute metabolic encephalopathy Discharge Planning 1-2days pending determination of antibiotic so that patient can be accepted by hospice * Pallative Care: Will be discharged under hospice once medically stable (Going to [facility]) saloni Whiting Problem List: (1) Acute metabolic encephalopathy ICD Codes: G93.41 - Metabolic encephalopathy Status: Resolved Plan: Patient with a history of dementia but baseline neurological status appears to be patient oriented to self and is able to answer questions appropriately. On admission she had a reported GCS of 5 and a fever of 101 that has since resolved. Etiology likely multifactorial at this point as pt was found to have hypernatremia and UTI. (2) UTI (urinary tract infection) ICD Codes: N39.0 - Urinary tract infection, site not specified Status: Acute Plan: Urine culture: ESBL ID consulted: appreciate recommendations. * Ertapenem (08/16- * Meropenem (-08/16) * US of LUE: negative (3) Hypernatremia ICD Codes: E87.0 - Hyperosmolality and hypernatremia Status: Acute Plan: Presented due to hypernatremia found as an outpatient. Admission Na of 159. Slowly downtrending. Will continue to be at risk for dehydration due to poor mental status and the lack of ability to hydrate herself. -serial BMPs: Patient is a difficult stick so follow-up BMPs have been difficult -I suspect sodium has continued to improve while on half NS. Will switch to NS empirically -continue fluids (4) Sepsis ICD Codes: A41.9 - Sepsis, unspecified organism Status: Resolved Plan: Met sepsis criteria on admission with fever and leukocytosis. Source urine. --Lactic acid has improved --blood cultures negative x3 days --please see more detailed plan above. (5) Pressure ulcer ICD Codes: L89.90 - Pressure ulcer of unspecified site, unspecified stage Plan: Midline sacral ulcer without puss or signs of active infection -wound care consulted: Appreciate recommendations * 1.Please cleanse wound to sacrum with normal saline or wound cleanser, pat dry. Apply skin prep to periwound before applying Optifoam gentle border 4x4, available through misogram only. Change every 3 days or PRN if saturated or dislodged. * 2. Apply skin prep to L heel and leave open to air BID. * 3. Turn patient every 2 hours or PRN for comfort and offloading of pressure from sacral and coccygeal terra prominence. (6) Atrial fibrillation ICD Codes: I48.91 - Unspecified atrial fibrillation Status: Acute Plan: Hx of Afib. Currently rate controlled. 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 Hold if SBP<110 and/or DBP <60 and/or Pulse <70 * Hold lisinopril (7) Type 2 diabetes mellitus without complications ICD Codes: E11.9 - Type 2 diabetes mellitus without complications Status: Acute Plan: Takes 25 units of Lantus at home. Found to be hyperglycemic on admission. Initially started on insulin drip, weaned off to subq as patient is able to take food PO -Levemir 5units in a.m. and 5units at night, to be titrated up as PO intake improves -low dose sliding scale (8) History of seizure ICD Codes: Z87.898 - Personal history of other specified conditions Status: Chronic Plan: Takes Keppra as home medication -Resume home keppra -keppra level pending (9) Dementia ICD Codes: F03.90 - Unspecified dementia without behavioral disturbance Status: Chronic Plan: Hx of dementia but patient is able to communicate at baseline. (10) Nutrition, metabolism, and development symptoms ICD Codes: R63.8 - Other symptoms and signs concerning food and fluid intake Plan: Diet: Diabetic, pureed Fluids: NS at 50mls/hr Electrolytes: See above DVT PPX: Heparin q12 GI PPX: not indicated at this time Problem Qualifiers (1) Sepsis: Qualified Codes: A41.9 - Sepsis, unspecified organism Salome Cervantes MD, R3 Aug 17, 2017 09:56
[2017-08-17 12:28] LABS: BASOPHIL % 0.4 % (0.0-2.0); EOSINOPHIL # 0.1 TH/MM3 (0-0.4); HEMATOCRIT 32.6 % (35.0-46.0); HEMOGLOBIN 10.8 GM/DL (11.6-15.3); LYMPH % 24.1 % (9.0-44.0); LYMPHOCYTE # 2.5 TH/MM3 (1.0-4.8); MEAN CORPUSCULAR HEMOGLOBIN 28.8 PG (27.0-34.0); MEAN CORPUSCULAR HGB CONC 33.1 % (32.0-36.0); MEAN PLATELET VOLUME 9.1 FL (7.0-11.0); MONO % 6.8 % (0.0-8.0); MONOCYTE # 0.7 TH/MM3 (0-0.9); NEUT % 67.7 % (16.0-70.0); PLATELET COUNT 193 TH/MM3 (150-450); RED BLOOD COUNT 3.75 MIL/MM3 (4.00-5.30); RED CELL DISTRIBUTION WIDTH 13.2 % (11.6-17.2); WHITE BLOOD COUNT 10.3 TH/MM3 (4.0-11.0)
[2017-08-17 13:09] LABS: BANDS 6 % (0-6); LYMPHOCYTES 12 % (9-44); METAMYELOCYTES 1 % (0-1); MONOCYTES 3 % (0-8); MYELOCYTES 1 % (0-0); NEUTROPHIL # MANUAL DIFF 8.8 TH/MM3 (1.8-7.7); POLYS (SEG NEUTROPHILS) 77 % (16-70)
[2017-08-17 13:20] LABS: BICARBONATE 29.3 MEQ/L (21.0-32.0); CALCIUM 7.9 MG/DL (8.5-10.1); CREATININE 0.78 MG/DL (0.50-1.00)
[2017-08-17] MEDS: SODIUM CHLOR 0.9% 1000 ML INJ 1,000 ML IV SCH (14:33)
[2017-08-17] MEDS: ERTAPENEM INJ 1,000 MG in SODIUM CHLORIDE 0.9% INJ 100 ML IV SCH (17:33)
[2017-08-17] MEDS: CARVEDILOL 6.25 MG TAB PO SCH (21:00)
[2017-08-17] MEDS: ATORVASTATIN 40 MG TAB PO SCH (21:00)
[2017-08-17] MEDS ORDERED: CARVEDILOL 12.5 MG TAB PO SCH (21:00)
[2017-08-18] VITALS: BP 109/53; PULSE 69; RESP 16; TEMP 96.7; O2SAT 98
[2017-08-18] MEDS: CHLORHEXIDINE GLUCONATE 2 % 1 PACK (2 CLOTHS)(taper/protocol) TOPICAL SCH (04:00)
[2017-08-18] MEDS: SODIUM CHLOR 0.9% 1000 ML INJ 1,000 ML IV SCH (05:34)
[2017-08-18] MEDS: SODIUM CHLORIDE 0.9% FLUSH 10 ML FLUSH IV FLUSH SCH ×3 (05:35→20:50)
--- NOTE | 2017-08-18 07:46 | HHI.FPPN ---
Subjective Remarks No acute events overnight. VS unremarkable except for continued low BP. This morning patient remains oriented only to herself. Only can state her first name. Denies having any pain or SOB. Objective Vitals Vital Signs Date Time Temp Pulse Resp B/P (MAP) Pulse Ox O2 Delivery O2 Flow Rate FiO2 08/18/17 00:00 96.7 69 16 109/53 (71) 98 08/17/17 20:00 96.8 70 16 134/60 (84) 97 08/17/17 16:00 97.7 66 17 110/51 (70) 94 08/17/17 12:00 95.2 65 18 109/57 (74) 99 08/17/17 11:30 97.4 63 27 110/60 (77) 100 08/17/17 08:00 97.6 58 12 129/61 (83) 100 08/17/17 08:00 61 I/O 08/17/17 08/17/17 08/17/17 08/18/17 08/18/17 08/18/17 07:00 15:00 23:00 07:00 15:00 23:00 Intake Total 1600.2 ml 220 ml Output Total 200 ml Balance 1400.2 ml 220 ml Intake Oral 120 ml 120 ml IV Total 1480.2 ml 100 ml Output Urine Total 200 ml # Voids 1 3 # Bowel Movements 1 2 Result Diagram: 08/17/17 1200 08/17/17 1200 Objective Remarks GEN: Well-developed, well-nourished patient. No acute distress. Resting comfortably in bed CV: Regular rate and rhythm without obvious murmurs LUNGS: Anterior lung sounds clear to auscultation bilaterally. Normal respiratory effort. No wheezes, rales, rhonchi. GI: Nondistended, soft. +BS EXT: No LE edema or calf tenderness. NEURO/PSYCH: Awake, alert. Oriented to first name only. A/P Assessment and Plan 86 yo female with HX of hemorrhagic CVA x2, dementia, afib, seizures, and DM type 2. Admitted due to hyponatremia and acute metabolic encephalopathy Discharge Planning Once oral ABX has been determined by ID, can be discharged to hospice. * Pallative Care: Will be discharged under hospice once medically stable (Going to [facility]) wdw Dr. Whiting Problem List: (1) Acute metabolic encephalopathy ICD Codes: G93.41 - Metabolic encephalopathy Status: Resolved Plan: Patient with a history of dementia but baseline neurological status appears to be patient oriented to self and is able to answer questions appropriately. On admission she had a reported GCS of 5 and a fever of 101 that has since resolved. Etiology likely multifactorial to included UTI and dehydration (2) UTI (urinary tract infection) ICD Codes: N39.0 - Urinary tract infection, site not specified Status: Acute Plan: Urine culture: ESBL ID consulted: appreciate recommendations. * Ertapenem (08/16- * Meropenem (08/15/-08/16) * US of LUE: negative (3) Hypernatremia ICD Codes: E87.0 - Hyperosmolality and hypernatremia Status: Resolved Plan: Presented due to hypernatremia found as an outpatient. Admission Na of 159. Now resolved. Will continue to be at risk for dehydration due to poor mental status and the lack of ability to hydrate herself. -continue to monitor sodium -continue fluids due to poor ability to hydrate herself. (4) Sepsis ICD Codes: A41.9 - Sepsis, unspecified organism Status: Resolved Plan: Met sepsis criteria on admission with fever and leukocytosis. Source urine. --Lactic acid has improved --blood cultures negative x3 days --please see more detailed plan above. (5) Pressure ulcer ICD Codes: L89.90 - Pressure ulcer of unspecified site, unspecified stage Status: Chronic Plan: Midline sacral ulcer without puss or signs of active infection -wound care consulted: Appreciate recommendations * 1.Please cleanse wound to sacrum with normal saline or wound cleanser, pat dry. Apply skin prep to periwound before applying Optifoam gentle border 4x4, available through misogram only. Change every 3 days or PRN if saturated or dislodged. * 2. Apply skin prep to L heel and leave open to air BID. * 3. Turn patient every 2 hours or PRN for comfort and offloading of pressure from sacral and coccygeal terra prominence. (6) Atrial fibrillation ICD Codes: I48.91 - Unspecified atrial fibrillation Status: Chronic Plan: Hx of Afib. Currently rate controlled. 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 Hold if SBP<110 and/or DBP <60 and/or Pulse <70 * Hold lisinopril (7) Type 2 diabetes mellitus without complications ICD Codes: E11.9 - Type 2 diabetes mellitus without complications Status: Acute Plan: Takes 25 units of Lantus at home. Found to be hyperglycemic on admission. Initially started on insulin drip, weaned off to subq -Levemir 5units in a.m. and 5units at night, to be titrated up as PO intake improves -low dose sliding scale (8) History of seizure ICD Codes: Z87.898 - Personal history of other specified conditions Status: Chronic Plan: Takes Keppra as home medication -Resume home keppra -keppra level pending (9) Dementia ICD Codes: F03.90 - Unspecified dementia without behavioral disturbance Status: Chronic Plan: Hx of dementia but patient is able to communicate at baseline. (10) Nutrition, metabolism, and development symptoms ICD Codes: R63.8 - Other symptoms and signs concerning food and fluid intake Plan: Diet: Diabetic, pureed Fluids: NS at 50mls/hr Electrolytes: See above DVT PPX: Heparin q12 GI PPX: not indicated at this time Problem Qualifiers (1) Sepsis: Qualified Codes: A41.9 - Sepsis, unspecified organism Salome Cervantes MD, R3 Aug 18, 2017 07:46
[2017-08-18 08:00] VITALS: BP 130/61; PULSE 75; RESP 18; TEMP 98; O2SAT 95
[2017-08-18] MEDS: CARVEDILOL 6.25 MG TAB PO SCH ×2 (08:52→20:50)
[2017-08-18] MEDS: HEPARIN SODIUM - SQ 10,000 UNITS/ML VIAL SQ SCH ×2 (08:52→20:51)
[2017-08-18] MEDS: levETIRAcetam 250 MG TAB PO SCH ×2 (08:52→20:50)
[2017-08-18] MEDS: INSULIN ASPART SUPPLEMENTAL SCALE SQ SCH ×5 (08:53→21:00)
[2017-08-18] MEDS: INSULIN DETEMIR 100 UNITS/ML VIAL SQ SCH ×2 (08:53→20:51)
[2017-08-18 12:00] VITALS: BP 111/56; PULSE 75; RESP 19; TEMP 96.9; O2SAT 96
[2017-08-18 16:00] VITALS: BP 129/69; PULSE 79; RESP 19; TEMP 97.8; O2SAT 95
[2017-08-18] MEDS: ERTAPENEM INJ 1,000 MG in SODIUM CHLORIDE 0.9% INJ 100 ML IV SCH (16:56)
[2017-08-18 17:46] LABS: BICARBONATE 28.5 MEQ/L (21.0-32.0); CREATININE 0.77 MG/DL (0.50-1.00)
[2017-08-18 20:00] VITALS: BP 152/66; PULSE 78; RESP 16; TEMP 97.9; O2SAT 95
[2017-08-18] MEDS: ATORVASTATIN 40 MG TAB PO SCH (20:50)
[2017-08-19 00:42] VITALS: BP 139/61; PULSE 71; RESP 16; TEMP 96.5; O2SAT 95
[2017-08-19] MEDS: SODIUM CHLOR 0.9% 1000 ML INJ 1,000 ML IV SCH (03:59)
[2017-08-19 08:00] VITALS: BP 127/60; PULSE 70; RESP 16; TEMP 97.3; O2SAT 95
[2017-08-19] MEDS: SODIUM CHLORIDE 0.9% FLUSH 10 ML FLUSH IV FLUSH SCH ×2 (09:00→22:37)
[2017-08-19] MEDS: INSULIN ASPART SUPPLEMENTAL SCALE SQ SCH ×4 (09:54→21:00)
[2017-08-19] MEDS: levETIRAcetam 250 MG TAB PO SCH ×2 (09:55→22:37)
[2017-08-19] MEDS: HEPARIN SODIUM - SQ 10,000 UNITS/ML VIAL SQ SCH ×3 (09:55→22:36)
[2017-08-19] MEDS: INSULIN DETEMIR 100 UNITS/ML VIAL SQ SCH ×2 (09:56→22:37)
[2017-08-19] MEDS: CARVEDILOL 6.25 MG TAB PO SCH ×2 (09:56→22:37)
--- NOTE | 2017-08-19 10:13 | HHI.FPPN ---
Subjective Remarks No acute events. VS show an improved BP but otherwise unremarkable. Patient continues to be oriented only to her first name but is able to follow commands and denies any pain. (Salome Cervantes MD, R3) Objective Vitals Vital Signs Date Time Temp Pulse Resp B/P (MAP) Pulse Ox O2 Delivery O2 Flow Rate FiO2 08/19/17 08:00 97.3 70 16 127/60 (82) 95 08/19/17 00:42 96.5 71 16 139/61 (87) 95 08/18/17 20:00 97.9 78 16 152/66 (94) 95 08/18/17 16:00 97.8 79 19 129/69 (89) 95 08/18/17 12:00 96.9 75 19 111/56 (74) 96 I/O 08/18/17 08/18/17 08/18/17 08/19/17 08/19/17 08/19/17 07:00 15:00 23:00 07:00 15:00 23:00 Intake Total 460 ml 50 ml Output Total 401 ml Balance 59 ml 50 ml Intake Oral 360 ml IV Total 100 ml 50 ml Output Urine Total 400 ml Stool Total 1 ml # Voids 3 4 # Bowel Movements 2 (Salome Cervantes MD, R3) Result Diagram: 08/17/17 1200 08/18/17 1605 Objective Remarks GEN: Well-developed, well-nourished patient. No acute distress. Resting comfortably in bed CV: Regular rate and rhythm without obvious murmurs LUNGS: Anterior lung sounds clear to auscultation bilaterally. Normal respiratory effort. No wheezes, rales, rhonchi. GI: Nondistended EXT: No LE edema or calf tenderness. NEURO/PSYCH: Awake, alert. Oriented to first name only. (Salome Cervantes MD, R3) A/P Assessment and Plan 86 yo female with HX of hemorrhagic CVA x2, dementia, afib, seizures, and DM type 2. Admitted due to hyponatremia and acute metabolic encephalopathy Discharge Planning To be determined once family is spoke with. There are no oral abx that will cover UTI and patient cannot be on IV abx in hospice. Options, continue abx at a SNF and then go to hospice or go to hospice directly without further abx. * Pallative Care: Will be discharged under hospice once medically stable (Going to [facility]) dw [facility] Attending Attestation Patient seen and examined. Case reviewed and discussed with the resident team. Agree with plan of care as discussed with me and documented in the resident note. agree with abx and perhaps she can finish her course at her SNF (Nelda Moreland MD) Problem List: (1) Acute metabolic encephalopathy ICD Codes: G93.41 - Metabolic encephalopathy Status: Resolved Plan: Patient with a history of dementia but baseline neurological status appears to be patient oriented to self and is able to answer questions appropriately. On admission she had a reported GCS of 5 and a fever of 101 that has since resolved. Etiology likely multifactorial to included UTI and dehydration (2) UTI (urinary tract infection) ICD Codes: N39.0 - Urinary tract infection, site not specified Status: Acute Plan: Urine culture: ESBL ID consulted: appreciate recommendations. * Ertapenem (08/16- * Meropenem (-08/16) * US of LUE: negative * Spoke with Dr. Pruitt on 08/18/16: No oral abx will cover strain (3) Hypernatremia ICD Codes: E87.0 - Hyperosmolality and hypernatremia Status: Resolved Plan: Presented due to hypernatremia found as an outpatient. Admission Na of 159. Now resolved. Will continue to be at risk for dehydration due to poor mental status and the lack of ability to hydrate herself. -continue to monitor sodium -continue fluids due to poor ability to hydrate herself. (4) Sepsis ICD Codes: A41.9 - Sepsis, unspecified organism Status: Resolved Plan: Met sepsis criteria on admission with fever and leukocytosis. Source urine. --Lactic acid has improved --blood cultures negative x5 days --please see more detailed plan above. (5) Pressure ulcer ICD Codes: L89.90 - Pressure ulcer of unspecified site, unspecified stage Status: Chronic Plan: Midline sacral ulcer without puss or signs of active infection -wound care consulted: Appreciate recommendations * 1.Please cleanse wound to sacrum with normal saline or wound cleanser, pat dry. Apply skin prep to periwound before applying Optifoam gentle border 4x4, available through misogram only. Change every 3 days or PRN if saturated or dislodged. * 2. Apply skin prep to L heel and leave open to air BID. * 3. Turn patient every 2 hours or PRN for comfort and offloading of pressure from sacral and coccygeal terra prominence. (6) Atrial fibrillation ICD Codes: I48.91 - Unspecified atrial fibrillation Status: Chronic Plan: Hx of Afib. Currently rate controlled. 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 Hold if SBP<110 and/or DBP <60 and/or Pulse <70 * Hold lisinopril * If BP begins to increase, will titrate carvedilol back up prior to restarting lisinopril (7) Type 2 diabetes mellitus without complications ICD Codes: E11.9 - Type 2 diabetes mellitus without complications Status: Acute Plan: Takes 25 units of Lantus at home. Found to be hyperglycemic on admission. Initially started on insulin drip, weaned off to subq -Levemir 5units in a.m. and 5units at night, to be titrated up as PO intake improves -low dose sliding scale (8) History of seizure ICD Codes: Z87.898 - Personal history of other specified conditions Status: Chronic Plan: Takes Keppra as home medication -Resume home keppra -keppra level normal (9) Dementia ICD Codes: F03.90 - Unspecified dementia without behavioral disturbance Status: Chronic Plan: Hx of dementia but patient is able to communicate at baseline. (10) Nutrition, metabolism, and development symptoms ICD Codes: R63.8 - Other symptoms and signs concerning food and fluid intake Plan: Diet: Diabetic, pureed Fluids: 1/2 NS at 75mls/hr Electrolytes: See above DVT PPX: Heparin q12 GI PPX: not indicated at this time (Salome Cervantes MD, R3) Problem Qualifiers (1) Sepsis: Qualified Codes: A41.9 - Sepsis, unspecified organism Salome Cervantes MD, R3 Aug 19, 2017 10:13 Nelda Moreland MD Aug 20, 2017 14:36
[2017-08-19 12:00] VITALS: BP 125/68; PULSE 73; RESP 16; TEMP 97.9; O2SAT 95
--- NOTE | 2017-08-19 15:18 | HHI.IDPN ---
Subjective Subjective Remarks barely responds non verbnal, which is her basline afebrile Antibiotics Ertapenem Allergies: Coded Allergies: erythromycin base (Unverified Allergy, Intermediate, hives, 04/01/17) metformin (Unverified Allergy, Intermediate, hives, 04/01/17) shellfish derived (Unverified Allergy, Intermediate, unknown, 04/01/17) diflunisal (Unverified Adverse Reaction, Intermediate, spacy, 04/01/17) doxycycline (Unverified Adverse Reaction, Intermediate, nausea/vomiting, ) ketorolac (Unverified Adverse Reaction, Intermediate, hallucinations, 04/01) meperidine (Unverified Adverse Reaction, Intermediate, itching, 04/01/17) pioglitazone (Unverified Adverse Reaction, Intermediate, chest pain, ) rosiglitazone (Unverified Adverse Reaction, Intermediate, edema, 04/01/17) sitagliptin (Unverified Adverse Reaction, Unknown, unknown, 04/01/17) Objective . Vital Signs Date Time Temp Pulse Resp B/P (MAP) Pulse Ox O2 Delivery O2 Flow Rate FiO2 08/19/17 12:00 97.9 73 16 125/68 (87) 95 08/19/17 08:00 97.3 70 16 127/60 (82) 95 08/19/17 00:42 96.5 71 16 139/61 (87) 95 08/18/17 20:00 97.9 78 16 152/66 (94) 95 08/18/17 16:00 97.8 79 19 129/69 (89) 95 08/19/17 08/19/17 08/20/17 14:59 22:59 06:59 Intake Total 50 ml Balance 50 ml IV Total 50 ml . Laboratory Tests Test 08/18/17 16:05 Blood Urea Nitrogen 13 MG/DL Creatinine 0.77 MG/DL Random Glucose 156 MG/DL Calcium Level 8.0 MG/DL Sodium Level 149 MEQ/L Potassium Level 3.7 MEQ/L Chloride Level 116 MEQ/L Carbon Dioxide Level 28.5 MEQ/L Anion Gap 5 MEQ/L Estimat Glomerular Filtration Rate 71 ML/MIN Imaging Last Impressions Upper Extremity Ultrasound 08/15/17 0000 Signed Impressions: Service Date/Time: August 19:04 - CONCLUSION: No venous thrombosis of the left upper extremity. Edil Castellon MD Chest X-Ray 08/13/17 1513 Signed Impressions: Service Date/Time: Sunday, August 13, 2017 15:24 - CONCLUSION: No acute disease. There is no evidence of pneumonia. Elio Bauman MD Head CT 08/13/17 0000 Signed Impressions: Service Date/Time: Sunday, August 13, 2017 15:36 - CONCLUSION: 1. No acute hemorrhage or mass effect. 2. Encephalomalacia involving the right frontal and parietal lobes. 3. Moderate atrophy and chronic small vessel ischemic changes. Elio Bauman MD Physical Exam CONSTITUTIONAL/GENERAL: This is an obese patient, in no apparent distress. TUBES/LINES/DRAINS: SKIN: No jaundice, rashes, or lesions. Skin temperature appropriate. Not diaphoretic. CARDIOVASCULAR: Regular rate and rhythm without murmurs, gallops, or rubs. No JVD. Peripheral pulses symmetric. RESPIRATORY/CHEST: Symmetric, unlabored respirations. Clear to auscultation. Breath sounds equal bilaterally. No wheezes, rales, or rhonchi. GASTROINTESTINAL: Abdomen soft, non-tender, nondistended. No hepato-splenomegaly , or palpable masses. No guarding. Bowel sounds present. GENITOURINARY: Without palpable bladder distension. Cardoso catheter in place with cloudy urine MUSCULOSKELETAL: Extremities without clubbing, cyanosis, + Prominent LUE non pitting edema. No joint tenderness or effusion noted. No calf tenderness. No mottling or clubbing. LYMPHATICS: No palpable cervical or supraclavicular adenopathy. NEUROLOGICAL: Awake and alert. Not follows commands. Confused, oriented to self only (seem to be baseline). Moves all extremities. PSYCHIATRIC: calm Assessment & Plan Remarks UTI 2/2 ESBL+ E.coli - no oral options: R to both cipro, bactrim - beta lacs not reliable in ESBL Sepsis (lactic acidoseis, leukocytosis, MS change and established infection) Clinically improved Pt is going to hospice cont Ertapenem at least thru 08/22 tx duration 7-14 days taking into account clinical reposnse OK to dc from ID standpoint dw palliative dw Rosalba Richards MD Aug 19, 2017 15:18
[2017-08-19 16:00] VITALS: BP 123/69; PULSE 75; RESP 18; TEMP 96.3; O2SAT 96
--- NOTE | 2017-08-19 17:14 | HHI.HCPN ---
Reason for visit a. To assist with evaluation and management of symptoms including: Confusion , edema b. To assist medical decision maker(s) with: better understanding of current medical conditions; weighing benefits/burdens of medical treatment options; making medical treatment decisions. Subjective/Interval History 86-year-old female admitted with ESBL, positive Escherichia coli UTI, sepsis, improving on antibiotics. First dose of ertapenem given 08/16/17 at 1800, per ID will need 7-14 days of antibiotic coverage, and there are no oral antibiotics that will be effective on the identified strain. Plan to discharge to [facility] when cleared with hospice to follow at the SNF. Patient has no uncontrolled symptoms at this time that would qualify her for hospice care center admission. mental health case manager, Paula Yu, is communicating with [facility] to determine whether patient can receive the remainder of the IV antibiotic course there or if she needs to remain hospitalized. [facility] will cost out the antibiotic prior to rendering a decision. Clinical course: * Vital signs: 123/69, heart rate 75, respiratory rate 18, oxygen saturation 96 % on room air, afebrile. * Microbiology: Urinary culture and sensitivity shows ESBL, positive Escherichia coli resistant to both Cipro and Bactrim. Per ID beta lactams not reliable in ESBL. Ertapenem 7-14 days. * Laboratory: 08/17/17 WBC 10.3, Hgb 10.8, HCT 32.6, PLT 193. 08/18/17 sodium 149 , potassium 3.7, BUN 13, creatinine 0.07, glucose 156. She is arousable, alert, appears to be at her baseline interaction per my discussions with the family. She does require cueing and encouragement, frequently staring off in space. Speech therapy has set her diet at pured with nectar thickened liquids, due to moderate oropharyngeal dysphasia. Follows commands intermittently. Able to respond to some yes or no questions. Hypernatremia improving slowly, remains on 0.45% NS at 75 mL an hour. . Advance Directives Living Will: Copy in medical record Health Care Surrogate: Copy in medical record Durable Power of Track Walker: Copy in medical record Advance Directive Specifics Health Care Surrogate(s): Kaushal Sánchez (son) lives in [place]-medical and financial POA [phone] (cell) Megan Princess (daughter) lives in [facility] (cell) . Objective Vital Signs Date Time Temp Pulse Resp B/P (MAP) Pulse Ox O2 Delivery O2 Flow Rate FiO2 08/19/17 16:00 96.3 75 18 123/69 (87) 96 08/19/17 12:00 97.9 73 16 125/68 (87) 95 08/19/17 08:00 97.3 70 16 127/60 (82) 95 08/19/17 00:42 96.5 71 16 139/61 (87) 95 08/18/17 20:00 97.9 78 16 152/66 (94) 95 Intake & Output 08/19/17 08/19/17 06:59 18:59 Intake Total 50 ml Balance 50 ml IV Total 50 ml # Voids 4 Physical Exam CONSTITUTIONAL/GENERAL: This is an elderly, obese patient, in no apparent distress. TUBES/LINES/DRAINS: PIV, Cardoso NECK: Trachea midline. Supple, nontender. No palpable thyroid enlargement or nodularity. CARDIOVASCULAR: Regular rate and rhythm without murmurs, gallops, or rubs. No JVD. Peripheral pulses symmetric. RESPIRATORY/CHEST: Symmetric, unlabored respirations. Clear to auscultation. Breath sounds equal bilaterally. No wheezes, rales, or rhonchi. GASTROINTESTINAL: Abdomen soft, non-tender, nondistended. Bowel sounds present. GENITOURINARY: Without palpable bladder distension. Cardoso catheter in place. MUSCULOSKELETAL: Extremities without clubbing or cyanosis. Left upper extremity with 1+ edema. No joint tenderness or effusion noted. No calf tenderness. No mottling or clubbing. Left hemiparesis NEUROLOGICAL: Arousable to verbal stimuli, more alert today, oriented to self, still with expressive aphasia and appears to have difficulty following a train of thought but answers simple questions intermittently. PSYCHIATRIC: No obvious anxiety/depression. no apparent hallucinations or other psychotic thought process. . Diagnostic Tests Laboratory Laboratory Tests Test 08/17/17 12:00 08/18/17 16:05 White Blood Count 10.3 TH/MM3 (4.0-11.0) Red Blood Count 3.75 MIL/MM3 (4.00-5.30) Hemoglobin 10.8 GM/DL (11.6-15.3) Hematocrit 32.6 % (35.0-46.0) Mean Corpuscular Volume 87.0 FL (80.0-100.0) Mean Corpuscular Hemoglobin 28.8 PG (27.0-34.0) Mean Corpuscular Hemoglobin Concent 33.1 % (32.0-36.0) Red Cell Distribution Width 13.2 % (11.6-17.2) Platelet Count 193 TH/MM3 (150-450) Mean Platelet Volume 9.1 FL (7.0-11.0) Neutrophils (%) (Auto) 67.7 % (16.0-70.0) Lymphocytes (%) (Auto) 24.1 % (9.0-44.0) Monocytes (%) (Auto) 6.8 % (0.0-8.0) Eosinophils (%) (Auto) 1.0 % (0.0-4.0) Basophils (%) (Auto) 0.4 % (0.0-2.0) Neutrophils # (Auto) 7.0 TH/MM3 (1.8-7.7) Lymphocytes # (Auto) 2.5 TH/MM3 (1.0-4.8) Monocytes # (Auto) 0.7 TH/MM3 (0-0.9) Eosinophils # (Auto) 0.1 TH/MM3 (0-0.4) Basophils # (Auto) 0.0 TH/MM3 (0-0.2) CBC Comment AUTO DIFF Differential Total Cells Counted 100 Neutrophils % (Manual) 77 % (16-70) Band Neutrophils % 6 % (0-6) Lymphocytes % 12 % (9-44) Monocytes % 3 % (0-8) Neutrophils # (Manual) 8.8 TH/MM3 (1.8-7.7) Metamyelocytes 1 % (0-1) Myelocytes 1 % (0-0) Differential Comment FINAL DIFF MANUAL Platelet Estimate NORMAL (NORMAL) Platelet Morphology Comment NORMAL (NORMAL) Blood Urea Nitrogen 13 MG/DL (7-18) 13 MG/DL (7-18) Creatinine 0.78 MG/DL (0.50-1.00) 0.77 MG/DL (0.50-1.00) Random Glucose 177 MG/DL (74-106) 156 MG/DL (74-106) Calcium Level 7.9 MG/DL (8.5-10.1) 8.0 MG/DL (8.5-10.1) Sodium Level 146 MEQ/L (136-145) 149 MEQ/L (136-145) Potassium Level 3.6 MEQ/L (3.5-5.1) 3.7 MEQ/L (3.5-5.1) Chloride Level 111 MEQ/L (98-107) 116 MEQ/L (98-107) Carbon Dioxide Level 29.3 MEQ/L (21.0-32.0) 28.5 MEQ/L (21.0-32.0) Anion Gap 6 MEQ/L (5-15) 5 MEQ/L (5-15) Estimat Glomerular Filtration Rate 70 ML/MIN (>89) 71 ML/MIN (>89) . Result Diagram: 08/17/17 1200 08/18/17 1605 Microbiology Microbiology Date/Time Source Procedure Growth Status 08/13/17 15:20 Blood Peripheral Aerobic Blood Culture - Final NO GROWTH IN 5 DAYS Complete 08/13/17 15:20 Blood Peripheral Anaerobic Blood Culture - Final NO GROWTH IN 5 DAYS Complete 08/13/17 16:16 Nasal Aspirate Influenza Types A,B Antigen (KARRIE) - Final NEGATIVE FOR FLU A AND B ANTIGEN.... Complete 08/13/17 16:16 Urine Catheterized Urine Urine Culture - Final Escherichia Coli Esbl Positive Multi-Drug Resistant Complete . Imaging Last Impressions Upper Extremity Ultrasound 08/15/17 0000 Signed Impressions: Service Date/Time: August 19:04 - CONCLUSION: No venous thrombosis of the left upper extremity. Edil Castellon MD Chest X-Ray 08/13/17 1513 Signed Impressions: Service Date/Time: Sunday, August 13, 2017 15:24 - CONCLUSION: No acute disease. There is no evidence of pneumonia. Elio Bauman MD Head CT 08/13/17 0000 Signed Impressions: Service Date/Time: Sunday, August 13, 2017 15:36 - CONCLUSION: 1. No acute hemorrhage or mass effect. 2. Encephalomalacia involving the right frontal and parietal lobes. 3. Moderate atrophy and chronic small vessel ischemic changes. Elio Bauman MD . Assessment and Plan Disease Oriented Problem List: (1) Dementia associated with other underlying disease without behavioral disturbance (2) Hypernatremia (3) Altered mental status (4) Hemiparesis affecting left side as late effect of cerebrovascular accident (5) Hemorrhagic cerebrovascular accident (CVA) (6) Atrial fibrillation (7) Obstructive sleep apnea Symptom Scale: (1) Fever (2) Altered mental status Pertinent Non-Medical Issues Psychosocial:Previously lived in [place] where she suffered the 2 hemorrhagic strokes and had been in rehabilitation at [facility] in [place], [place] but was subsequently discharged October 2015. She moved to [place] to be closer to her daughter and was admitted to [facility] for further rehabilitation. 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 Patient was previously a DNR . Spiritual: Records Management Specialist available . Legal: No issues noted. . Ethical issues impacting care: No issues noted. . Important Contacts * Jarod Briseno (daughter) lives in [place]-primary contact [phone] * Kaushal Sánchez (son) lives in [facility] POA [phone] (cell) * Megan Sánchez (daughter) lives in [facility] POA (cell) * . Prognosis Her prognosis is poor. She has chronic and worsening dysphasia lending to dehydration, frequent UTIs and the likelihood of pneumonia. She has suffered 2 hemorrhagic CVAs secondary to Coumadin administration for thromboembolic prophylaxis due to atrial fibrillation. She still has paroxysmal atrial fibrillation and is at risk for an ischemic stroke from that source. Given her poor oral intake it is likely that she will continue to have recurrent hospitalizations. Family states that this is not consistent with their goals or the patient's goals and have elected hospice with comfort care. . Code Status: No Code Plan PLAN: Legal decision maker: DPOA states joint or severally Kaushal Sánchez (son) lives in [facility] POA [phone] (cell) Megan Sánchez (daughter) lives in [facility] POA (cell) Goals: Comfort measures with hospice support. CODE STATUS: DNR SYMPTOMS: * Confusion: Appears to be at her baseline, oriented to self, can intermittently answer questions by nodding but sometimes answers yes to all questions. Improved since admission with treatment of UTI. Appears to be her optimal function since 2 hemorrhagic CVAs. * Edema: She was significantly dehydrated and hypernatremic on admission. She has been receiving IV fluid throughout her stay. This has significantly improved her renal function, however patient is unable to reposition herself in bed and dependent positioning of limbs may increase her edema. Would recommend frequent repositioning and elevating extremities on pillows. Palliative care will continue to follow the patient during hospital course as condition evolves, to assist patient/decision-maker with understanding of their medical conditions, weighing benefits/burdens of treatment options, for clarification of goals of treatment. Additionally will assist with any symptoms of palliative concern. . Attestation To help prompt me to consider important information that might be impacting today's encounter and assessment, information from prior notes written by myself or my colleagues may have been "brought forward" into today's note. My signature on this note, however, is an attestation that I personally performed the exam, history, and/or decision-making noted today, and, unless otherwise indicated, the interactions with patient, family, and staff as well as the review of records all occurred today. I also attest that the listed assessment and stated plan reflect my best clinical judgment today based on the combination of historical information, prior notes, and today's exam/ interactions. When time spent is documented, it refers only to time spent today by the signer, or if indicated, combined time spent today by collaborating physician/nurse practitioner. . Tati Bains Aug 19, 2017 5:14 pm
[2017-08-19] MEDS: ERTAPENEM INJ 1,000 MG in SODIUM CHLORIDE 0.9% INJ 100 ML IV SCH (19:27)
[2017-08-19 20:00] VITALS: BP 148/65; PULSE 75; RESP 22; TEMP 96.7; O2SAT 95
[2017-08-19] MEDS: SODIUM CHLOR 0.45% 1000 ML INJ 1,000 ML IV SCH ×2 (20:35→23:05)
[2017-08-19] MEDS: ATORVASTATIN 40 MG TAB PO SCH (22:37)
[2017-08-20] VITALS: BP 150/65; PULSE 76; RESP 20; TEMP 96.2; O2SAT 95
[2017-08-20 08:00] VITALS: BP 135/62; PULSE 74; RESP 16; TEMP 97.8; O2SAT 90
[2017-08-20] MEDS: INSULIN ASPART SUPPLEMENTAL SCALE SQ SCH ×3 (08:00→16:41)
--- NOTE | 2017-08-20 08:58 | HHI.FPPN ---
Subjective Remarks No acute events overnight. VS unremarkable. BP improved. Clinical status unchanged this morning. A little more difficult to wake up but was arousable. (Salome Cervantes MD, R3) Objective Vitals Vital Signs Date Time Temp Pulse Resp B/P (MAP) Pulse Ox O2 Delivery O2 Flow Rate FiO2 08/20/17 08:00 97.8 74 16 135/62 (86) 90 08/20/17 00:00 96.2 76 20 150/65 (93) 95 08/19/17 20:00 96.7 75 22 148/65 (92) 95 08/19/17 16:00 96.3 75 18 123/69 (87) 96 08/19/17 12:00 97.9 73 16 125/68 (87) 95 I/O 08/19/17 08/19/17 08/19/17 08/20/17 08/20/17 08/20/17 07:00 15:00 23:00 07:00 15:00 23:00 Intake Total 50 ml 60 ml 0 ml Balance 50 ml 60 ml 0 ml Intake Oral 60 ml 0 ml IV Total 50 ml # Voids 4 4 3 # Bowel Movements 1 2 (Salome Cervantes MD, R3) Result Diagram: 08/17/17 1200 08/18/17 1605 Objective Remarks GEN: Well-developed, well-nourished patient. No acute distress. Resting comfortably in bed CV: Regular rate and rhythm without obvious murmurs LUNGS: Anterior lung sounds clear to auscultation bilaterally. Normal respiratory effort. No wheezes, rales, rhonchi. GI: Nondistended EXT: No LE edema or calf tenderness. NEURO/PSYCH: Awake, alert. (Salome Cervantes MD, R3) A/P Assessment and Plan 86 yo female with HX of hemorrhagic CVA x2, dementia, afib, seizures, and DM type 2. Admitted due to hyponatremia and acute metabolic encephalopathy Discharge Planning Likely on 08/22 as abx course would be completed and patient is clinically at her baseline. * Pallative Care: Will be discharged under hospice once medically stable (Going to [facility]) saloni Moreland (Salome Cervantes MD, R3) Attending Attestation Patient seen and examined. Case reviewed and discussed with the resident team. Agree with plan of care as discussed with me and documented in the resident note. appreciate help ID (Nelda Moreland MD) Problem List: (1) UTI (urinary tract infection) ICD Codes: N39.0 - Urinary tract infection, site not specified Status: Acute Plan: Urine culture: ESBL ID consulted: appreciate recommendations. * Ertapenem (08/16- cont Ertapenem at least thru 08/22 * Meropenem (08/15/-08/16) * US of LUE: negative * No oral options: R to both cipro, bactrim. Beta lacs not reliable in ESBL * tx duration 7-14 days taking into account clinical response * OK to dc from ID standpoint (2) Acute metabolic encephalopathy ICD Codes: G93.41 - Metabolic encephalopathy Status: Resolved Plan: Patient with a history of dementia but baseline neurological status appears to be patient oriented to self and is able to answer questions appropriately. On admission she had a reported GCS of 5 and a fever of 101 that has since resolved. Etiology likely multifactorial to included UTI and dehydration (3) Hypernatremia ICD Codes: E87.0 - Hyperosmolality and hypernatremia Status: Resolved Plan: Presented due to hypernatremia found as an outpatient. Admission Na of 159. Now resolved. Will continue to be at risk for dehydration due to poor mental status and the lack of ability to hydrate herself. -continue to monitor sodium -continue fluids due to poor ability to hydrate herself. (4) Sepsis ICD Codes: A41.9 - Sepsis, unspecified organism Status: Resolved Plan: Met sepsis criteria on admission with fever and leukocytosis. Source urine. --Lactic acid has improved --blood cultures negative x5 days --please see more detailed plan above. (5) Pressure ulcer ICD Codes: L89.90 - Pressure ulcer of unspecified site, unspecified stage Status: Chronic Plan: Midline sacral ulcer without puss or signs of active infection -wound care consulted: Appreciate recommendations * 1.Please cleanse wound to sacrum with normal saline or wound cleanser, pat dry. Apply skin prep to periwound before applying Optifoam gentle border 4x4, available through misogram only. Change every 3 days or PRN if saturated or dislodged. * 2. Apply skin prep to L heel and leave open to air BID. * 3. Turn patient every 2 hours or PRN for comfort and offloading of pressure from sacral and coccygeal terra prominence. (6) Atrial fibrillation ICD Codes: I48.91 - Unspecified atrial fibrillation Status: Chronic Plan: Hx of Afib. Currently rate controlled. 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 Hold if SBP<110 and/or DBP <60 and/or Pulse <70 * Hold lisinopril * If BP begins to increase, will titrate carvedilol back up prior to restarting lisinopril (7) Type 2 diabetes mellitus without complications ICD Codes: E11.9 - Type 2 diabetes mellitus without complications Status: Acute Plan: Takes 25 units of Lantus at home. Found to be hyperglycemic on admission. Initially started on insulin drip, weaned off to subq -Levemir 5units in a.m. and 5units at night, to be titrated up as PO intake improves -low dose sliding scale (8) History of seizure ICD Codes: Z87.898 - Personal history of other specified conditions Status: Chronic Plan: Takes Keppra as home medication -Resume home keppra -keppra level normal (9) Dementia ICD Codes: F03.90 - Unspecified dementia without behavioral disturbance Status: Chronic Plan: Hx of dementia but patient is able to communicate at baseline. (10) Nutrition, metabolism, and development symptoms ICD Codes: R63.8 - Other symptoms and signs concerning food and fluid intake Plan: Diet: Diabetic, pureed Fluids: 1/2 NS at 75mls/hr Electrolytes: See above DVT PPX: Heparin q12 GI PPX: not indicated at this time (Salome Cervantes MD, R3) Problem Qualifiers (1) Sepsis: Qualified Codes: A41.9 - Sepsis, unspecified organism Salome Cervantes MD, R3 Aug 20, 2017 08:58 Nelda Moreland MD Aug 20, 2017 14:37
[2017-08-20] MEDS: INSULIN DETEMIR 100 UNITS/ML VIAL SQ SCH (09:00)
[2017-08-20] MEDS: levETIRAcetam 250 MG TAB PO SCH (09:10)
[2017-08-20] MEDS: SODIUM CHLOR 0.45% 1000 ML INJ 1,000 ML IV SCH (09:10)
[2017-08-20] MEDS: HEPARIN SODIUM - SQ 10,000 UNITS/ML VIAL SQ SCH (09:10)
[2017-08-20] MEDS: CARVEDILOL 6.25 MG TAB PO SCH (09:11)
[2017-08-20] MEDS: SODIUM CHLORIDE 0.9% FLUSH 10 ML FLUSH IV FLUSH SCH (09:11)
[2017-08-20 12:00] VITALS: BP 130/65; PULSE 70; RESP 18; TEMP 97.9; O2SAT 93
[2017-08-20] MEDS ORDERED: LEVEMIR SQ (12:03)
[2017-08-20] MEDS ORDERED: CARV6.25 PO (12:03)
--- NOTE | 2017-08-20 12:03 | HHI.FF ---
Infusion Therapy Location of Infusion Therapy: [facility] Infusion Therapy Order Patient Information Patient Weight 76.9 kg Diagnosis: Coded Allergies: erythromycin base (Unverified Allergy, Intermediate, hives, 04/01/17) metformin (Unverified Allergy, Intermediate, hives, 04/01/17) shellfish derived (Unverified Allergy, Intermediate, unknown, 04/01/17) diflunisal (Unverified Adverse Reaction, Intermediate, spacy, 04/01/17) doxycycline (Unverified Adverse Reaction, Intermediate, nausea/vomiting, ) ketorolac (Unverified Adverse Reaction, Intermediate, hallucinations, 04/01) meperidine (Unverified Adverse Reaction, Intermediate, itching, 04/01/17) pioglitazone (Unverified Adverse Reaction, Intermediate, chest pain, ) rosiglitazone (Unverified Adverse Reaction, Intermediate, edema, 04/01/17) sitagliptin (Unverified Adverse Reaction, Unknown, unknown, 04/01/17) Administer Medication Ertapenem 1 gram IV q 24 hours Start Treatment: Aug 20, 2017 Stop Treatment: Aug 24, 2017 Additional Information Venous access: Other Additional Instructions [x] Peripheral flush and dressing changes per protocol [x] Implanted port and central apparatus lineman: * Implanted port: 10 ml Normal Saline followed by 5 ml Heparin 100 units/ml Heparin flush after each use and monthly to maintain. [] May leave port accessed during therapy. [] May leave peripheral site accessed for duration of therapy. [x] If patient has SOB or respiratory distress, check oxygen saturation. If less than 90% or clinical signs of respiratory distress, administer oxygen at 2 L/min. via nasal cannula and notify physician. [x] Anaphylaxis/Reaction orders: * Stop infusion. * Keep IV line open with saline flush. * Notify physician. * Monitor vital signs every 15 minutes until symptoms resolve. * Check Oxygen saturation; Oxygen at 2 L/min. via nasal cannula if less than 90% or clinical signs of respiratory distress. * Administer diphenhydramine (Benadryl) 25 mg IV STAT, (unless patient has received as pre-med). May repeat once, if necessary. * Solu-Cortef 250 mg IVP over 30-60 seconds, use 100 mg vials for each dissolution. * Epinephrine (1mg/1 ml) 0.3 mg subcutaneously or IVP now with any signs of respiratory distress. * Check with physician for new additional pre-med orders if patient is re- challenged or re-treated. [x] May remove PICC line when treatment complete, after confirming with Physician. [x] If the patient is admitted to the hospital, the ED, or transferred via [facility] , complete transfer form including medication reconciliation order sheet. Rosalba Pruitt MD Aug 20, 2017 12:03
--- NOTE | 2017-08-20 12:04 | HHI.DCPOC ---
Discharge Care Plan Diagnosis: (1) Hypernatremia (2) Sepsis (3) UTI (urinary tract infection) (4) Type 2 diabetes mellitus without complications (5) Atrial fibrillation (6) Acute metabolic encephalopathy Goals to Promote Your Health * To prevent worsening of your condition and complications * To maintain your health at the optimal level Directions to Meet Your Goals Take your medications as prescribed Follow your dietary instruction Follow activity as directed Keep your appointments as scheduled Take your immunizations and boosters as scheduled If your symptoms worsen call your PCP, if no PCP go to Urgent Care Center or Emergency Room Smoking is Dangerous to Your Health. Avoid second hand smoke Call the 24-hour hour crisis hotline for domestic abuse at Salome Cervantes MD, R3 Aug 20, 2017 12:04
[2017-08-20 13:52] LABS: BICARBONATE 24.1 MEQ/L (21.0-32.0); CALCIUM 8.1 MG/DL (8.5-10.1); CREATININE 0.6 MG/DL (0.50-1.00)
[2017-08-20 16:00] VITALS: BP 133/75; PULSE 78; RESP 16; TEMP 96.9; O2SAT 91
[2017-08-20] MEDS: ERTAPENEM INJ 1,000 MG in SODIUM CHLORIDE 0.9% INJ 100 ML IV SCH (16:07)
--- NOTE | 2017-08-21 06:38 | HHI.DS ---
Discharge Summary Admission Date Aug 13, 2017 at 16:55 Discharge Date: Aug 20, 2017 Admitting Diagnosis sepsis, hypernatremia (1) UTI (urinary tract infection) Plan: Urine culture: ESBL ID consulted: appreciate recommendations. * Ertapenem (08/16- cont Ertapenem at least thru 08/22 * Meropenem (08/15/-08/16) * US of LUE: negative * No oral options: R to both cipro, bactrim. Beta lacs not reliable in ESBL * tx duration 7-14 days taking into account clinical response * OK to dc from ID standpoint ICD Codes: N39.0 - Urinary tract infection, site not specified Status: Acute (2) Acute metabolic encephalopathy Plan: Patient with a history of dementia but baseline neurological status appears to be patient oriented to self and is able to answer questions appropriately. On admission she had a reported GCS of 5 and a fever of 101 that has since resolved. Etiology likely multifactorial to included UTI and dehydration ICD Codes: G93.41 - Metabolic encephalopathy Status: Resolved (3) Hypernatremia Plan: Presented due to hypernatremia found as an outpatient. Admission Na of 159. Now resolved. Will continue to be at risk for dehydration due to poor mental status and the lack of ability to hydrate herself. -continue to monitor sodium -continue fluids due to poor ability to hydrate herself. ICD Codes: E87.0 - Hyperosmolality and hypernatremia Status: Resolved (4) Sepsis Plan: Met sepsis criteria on admission with fever and leukocytosis. Source urine. --Lactic acid has improved --blood cultures negative x5 days --please see more detailed plan above. ICD Codes: A41.9 - Sepsis, unspecified organism Status: Resolved (5) Pressure ulcer Plan: Midline sacral ulcer without puss or signs of active infection -wound care consulted: Appreciate recommendations * 1.Please cleanse wound to sacrum with normal saline or wound cleanser, pat dry. Apply skin prep to periwound before applying Optifoam gentle border 4x4, available through misogram only. Change every 3 days or PRN if saturated or dislodged. * 2. Apply skin prep to L heel and leave open to air BID. * 3. Turn patient every 2 hours or PRN for comfort and offloading of pressure from sacral and coccygeal terra prominence. ICD Codes: L89.90 - Pressure ulcer of unspecified site, unspecified stage Status: Chronic (6) Atrial fibrillation Plan: Hx of Afib. Currently rate controlled. 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 Hold if SBP<110 and/or DBP <60 and/or Pulse <70 * Hold lisinopril * If BP begins to increase, will titrate carvedilol back up prior to restarting lisinopril ICD Codes: I48.91 - Unspecified atrial fibrillation Status: Chronic (7) Type 2 diabetes mellitus without complications Plan: Takes 25 units of Lantus at home. Found to be hyperglycemic on admission. Initially started on insulin drip, weaned off to subq -Levemir 5units in a.m. and 5units at night, to be titrated up as PO intake improves -low dose sliding scale ICD Codes: E11.9 - Type 2 diabetes mellitus without complications Status: Acute (8) History of seizure Plan: Takes Keppra as home medication -Resume home keppra -keppra level normal ICD Codes: Z87.898 - Personal history of other specified conditions Status: Chronic (9) Dementia Plan: Hx of dementia but patient is able to communicate at baseline. ICD Codes: F03.90 - Unspecified dementia without behavioral disturbance Status: Chronic (10) Nutrition, metabolism, and development symptoms Plan: Diet: Diabetic, pureed Fluids: 1/2 NS at 75mls/hr Electrolytes: See above DVT PPX: Heparin q12 GI PPX: not indicated at this time ICD Codes: R63.8 - Other symptoms and signs concerning food and fluid intake [facility] ID Brief History Ms. Sánchez is an 86 year old female with a history of dementia, atrial fibrillation who was brought to the ED from her place of residence on 08/13 due to sodium in the 160s. When patient arrived in the ED by ambulance, her GCS was 5 and had a fever of 101. Per ED physician, patient's GCS improved to 12 later. At the time of this interview, patient is not able to participate in the interview. She wakes up on sternal rub and then goes back to sleep. She follows commands minimally. On admission, Na 159, K 5/1, BUN 44, Creatinine 1.47 , Glucose 354, Lactic Acid 2.5. Troponin 0.02. CBC indicated WBC 16.8, Hgb 12.4 , Plt 261. CBC/BMP: 08/17/17 1200 08/20/17 1306 Significant Findings Laboratory Tests Test 08/18/17 16:05 08/20/17 13:06 Random Glucose 156 MG/DL (74-106) 178 MG/DL (74-106) Calcium Level 8.0 MG/DL (8.5-10.1) 8.1 MG/DL (8.5-10.1) Sodium Level 149 MEQ/L (136-145) 150 MEQ/L (136-145) Chloride Level 116 MEQ/L (98-107) 117 MEQ/L (98-107) Estimat Glomerular Filtration Rate 71 ML/MIN (>89) PE at Discharge GEN: Well-developed, well-nourished patient. No acute distress. Resting comfortably in bed CV: Regular rate and rhythm without obvious murmurs LUNGS: Anterior lung sounds clear to auscultation bilaterally. Normal respiratory effort. No wheezes, rales, rhonchi. GI: Nondistended EXT: No LE edema or calf tenderness. NEURO/PSYCH: Awake, alert. Hospital Course 86 yo female with HX of hemorrhagic CVA x2, dementia, afib, seizures, and DM type 2. Admitted due to hyponatremia and acute metabolic encephalopathy. She was also found to have a UTI with ESBL that is currently being treated adequately with ertapenem with a total treatment duration of 7 days. There are no oral options available for her strain.. Appendectomy female was treated initially with D5W fluids and then transitioned down to half normal saline/ normal saline. Patient will have continued difficulty hydrating herself due to her poor mental status due to dementia. She is only oriented to herself at baseline. She was also found to have hyperglycemia on admission that was treated with insulin drip and then transitioned to subcutaneous insulin. Patient was initially hypotensive but a pressure continued to improve. Home blood pressure medications were restarted but at a lower dose. Patient will be discharged to SNF to complete IV abx prior to transitioning to hospice care. Pt Condition on Discharge: Fair Discharge Disposition: Discharge to SNF Discharge Instructions DIET: Follow Instructions for: As Tolerated, No Restrictions Activities you can perform: Regular-No Restrictions Follow up Referrals: PCP Follow-up - 1 Week Wound Care Clinic - 1 Week New Orders: BASIC METABOLIC PROF - 2-3 Days New Medications: Insulin Detemir Inj (Levemir Inj) 1,000 unit/ 10 ML Vial 5 UNITS SQ BID for Blood Sugar Management, #1 VIAL 0 Refills Do not mix with any other Insulin. Carvedilol (Coreg) 6.25 Mg Tab 6.25 MG PO Q12HR, #60 TAB Continued Medications: Acetaminophen (Tylenol) 325 Mg Tab 650 MG PO Q4H PRN for pain, TAB 0 Refills Albuterol 18 GM Inh (Ventolin Hfa 18 GM Inh) 90 Mcg/Act Aer 2 PUFF INH Q4H PRN for SHORTNESS OF BREATH, #1 INHALER 0 Refills Atorvastatin (Atorvastatin) 40 Mg Tab 40 MG PO HS for Cholesterol Management, #30 TAB 0 Refills Bisacodyl Supp (Dulcolax Supp) 10 Mg Supp 10 MG RECTAL DAILY PRN for CONSTIPATION, #12 SUPP 0 Refills Bismuth Subsalicylate (Pepto-Bismol) 262 Mg Chew 524 MG CHEW TID PRN for INDIGESTION OR UPSET STOMACH, TAB 0 Refills Insulin Aspart Inj (Novolog Inj) 1,000 Unit/10 Ml Vial 0 SQ DIRECTED for Blood Sugar Management, #10 ML 0 Refills BGM 70-139 0 units, 140-180 2 untis, 181-240 3 units, 241-300 4mg, 301-350 6 units, 351-400 8 units, >400 10 units Levetiracetam (Keppra) 750 Mg Tab 750 MG PO BID for Control Seizures, #60 TAB 0 Refills Magnesium Hydroxide Liq (Milk of Magnesia Liq) 400 Mg/5 Ml Susp 30 ML PO DAILY PRN for INDIGESTION OR UPSET STOMACH, #1 BOTTLE 0 Refills Polyethylene Glycol 3350 Powder (Miralax Powder) 17 Gm Powd 17 GM PO DAILY for Constipation, #1 CAN 0 Refills Mix and dissolve one measuring cap-ful (17 grams) in water or juice. Ranitidine (Ranitidine) 150 Mg Tab 150 MG PO BID for Heartburn Management, #60 TAB 0 Refills Discontinued Medications: Carvedilol (Carvedilol) 25 Mg Tab 25 MG PO BID, #60 TAB 0 Refills Furosemide (Furosemide) 20 Mg Tab 20 MG PO DAILY, #30 TAB 0 Refills Ibuprofen (Ibuprofen) 800 Mg Tab 800 MG PO Q6HR PRN for PAIN, #40 TAB 0 Refills Insulin Glargine Inj (Lantus Inj) 1,000 Unit/10 Ml Vial 30 UNITS SQ HS for Blood Sugar Management, #1 VIAL 0 Refills Lisinopril (Lisinopril) 2.5 Mg Tab 2.5 MG PO DAILY, #30 TAB 0 Refills Salome Cervantes MD, R3 Aug 21, 2017 06:37
[2017-08-23] MEDS ORDERED: MORP20SO2 PO (16:23)
[2017-08-23] MEDS ORDERED: LORA-474 PO (16:23)
[2017-08-23] MEDS ORDERED: SENN8.6T36 PO (16:23)
== END 2017-08-20 18:54 | DRG 871 ==
LOC: NEPC 15:06 → NEDA 16:55 → HIMW 20:35 → N07A 08-17 12:53
PROVIDERS: ADMIT Family Medicine; ATTEND Family Medicine
DX: A41.51 Sepsis due to Escherichia coli [E. coli] (principal); G93.41 Metabolic encephalopathy; N17.9 Acute kidney failure, unspecified; I11.0 Hypertensive heart disease with heart failure; E87.0 Hyperosmolality and hypernatremia; L89.153 Pressure ulcer of sacral region, stage 3; E11.65 Type 2 diabetes mellitus with hyperglycemia; I50.9 Heart failure, unspecified; G93.89 Other specified disorders of brain; I69.354 Hemiplegia and hemiparesis following cerebral infarction affecting left non-dominant side; N39.0 Urinary tract infection, site not specified; E86.0 Dehydration; F02.80 Dementia in other diseases classified elsewhere, unspecified severity, without behavioral disturbance, psychotic disturbance, mood disturbance, and anxiety; I69.398 Other sequelae of cerebral infarction; K21.9 Gastro-esophageal reflux disease without esophagitis; R65.20 Severe sepsis without septic shock; G47.33 Obstructive sleep apnea (adult) (pediatric); I48.0 Paroxysmal atrial fibrillation; E78.00 Pure hypercholesterolemia, unspecified; R40.2431 Glasgow coma scale score 3-8, in the field [EMT or ambulance]; Z16.12 Extended spectrum beta lactamase (ESBL) resistance; Z79.4 Long term (current) use of insulin; Z66 Do not resuscitate; Z88.1 Allergy status to other antibiotic agents; Z91.013 Allergy to seafood; Z99.3 Dependence on wheelchair
CPT/HCPCS: 36569; 51702; 70450; 71045; 76937; 80048; 80053; 80177; 81001; 82550; 82552; 82948; 83605; 83735; 84100; 84484; 85007; 85025; 85027; 85610; 85730; 87040; 87077; 87086; 87186; 87641; 87804; 93971; 99292; J0696; J1335; J1644; J1815; J1817; J2185; J2543; J3370; J3480; J7030; J7040; J7050; J7070